=== PATIENT | male | born 1935 | race Caucasian/White ===

== ENCOUNTER 2018-12-29 15:52 | Outpatient (CLI) | payer MEDICARE, SELFPAY ==
--- NOTE | 2018-12-29 16:15 | DI.RAD_ITS ---
SYMPTOM/DIAGNOSIS: CHRONIC RT SHOULDER PAIN, M25.511, H/O FALL ONE MONTH AGO RIGHT SHOULDER: Six views were obtained. There is plate and screw fixation of the proximal humeral diaphysis. There are mild hypertrophic degenerative changes of the glenohumeral joint and acromioclavicular joint. No other significant bony or soft tissue abnormality is seen.
== END 2018-12-29 16:12 ==
PROVIDERS: Visit Provider Family Medicine
DX: M25.511 Pain in right shoulder (principal); M19.011 Primary osteoarthritis, right shoulder; Z91.81 History of falling
CPT/HCPCS: 73030

== ENCOUNTER → 2019-01-17 09:56 | Outpatient (BNVA) | payer MEDICARE, SELFPAY | PROVIDERS: Referring Provider Family Medicine; Visit Provider Student in an Organized Health Care Education/Training Program | DX: M75.81 Other shoulder lesions, right shoulder (principal) | CPT/HCPCS: 20610; 99203; 99213; J1040 ==

== ENCOUNTER → 2019-02-28 10:03 | Outpatient (BNVA) | payer MEDICARE, SELFPAY | PROVIDERS: Visit Provider Student in an Organized Health Care Education/Training Program | DX: M75.81 Other shoulder lesions, right shoulder (principal); Z98.890 Other specified postprocedural states | CPT/HCPCS: 99213 ==

== ENCOUNTER 2019-10-10 12:47 | Emergency (ER) | payer MEDICARE, SELFPAY ==
[2019-10-10 12:53] VITALS: BP 133/80; PULSE 74; RESP 16; TEMP 36.5; O2SAT 97
--- NOTE | 2019-10-10 13:00 | DI.RAD_ITS ---
EXAM: XR FOOT RT COMPLETE INDICATION: erythema, tenderness. COMPARISON: No exams were available for comparison TECHNIQUE: 2D digital imaging was performed. FINDINGS: No fracture or bony erosions are seen. There are degenerative changes of the 1st MTP joint. No fore ign body or soft tissue calcifications are seen. There is no abnormal soft tissue air. 

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
[2019-10-10] MEDS: Acetaminophen 500 MG TAB PO (13:54)
[2019-10-10] MEDS: Cephalexin 500 MG CAP PO (13:54)
== END 2019-10-10 14:00 | disposition home or self-care (01) ==
PROVIDERS: Emergency Provider Registered Nurse Emergency
DX: L03.115 Cellulitis of right lower limb (principal)
CPT/HCPCS: 99283; 73630

== ENCOUNTER 2020-07-21 10:39 | Emergency (ER) | payer MEDICARE, SELFPAY ==
[2020-07-21] VITALS (31 sets, daily range): BP systolic 120–152; BP diastolic 41–81; PULSE 52–73; RESP 9–23; TEMP 36.6; O2SAT 93–99
--- NOTE | 2020-07-21 10:45 | RT.EKG_ITS ---
APPROVED REPORT Exam: Resting ECG Patient Location: E HR:62 bpm ECG Measurements Heart Rate 62 AXIS IA 252 P 71 QRSd 172 QRS 38 QT 435 T 33 QTc 441 Conclusion Pacemaker spikes or artifacts...timing non-diagnostic Sinus rhythm...normal P axis, V-rate 60- 99 Prolonged IA interval...IA >220, V-rate 50- 90 Right bundle branch block...QRSd>120, terminal axis(90,270) I have reviewed and interpreted ECG and agree with software generated interpretation.
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
--- NOTE | 2020-07-21 11:15 | DI.CT_ITS ---
EXAM: CT CHEST PE CTA CLINICAL HISTORY: R sided back/scapula pain, r/o acute disease. TECHNIQUE: Imaging Protocol: Axial CT angiography was performed with multi-slice acquisition and mu lti-planar and/or 3D reconstructions. CONTRAST MATERIAL: Intravenous: Omnipaque 350 Contrast volume:100 ml COMPARISON: CR CHEST 2 VIEWS PA,LAT from 11/22/2015 FINDINGS: Pulmonary Arteries: No evidence of filling defect to suggest pulmonary emboli. Tracheobronchial tree: Patent where visualized. Mediastinum and Rizwana: No dominant adenopathy or fluid collection. Pulmonary parenchyma: No consolidation or dominant measurable mass. Expiratory changes. Two cysts or bulla at the right lung base.. Pleura: No effusion or pneumothorax. Heart: The heart is not dilated. coronary artery calcifications are seen. Aorta: Thoracic aorta non-dilated. Minimal atherosclerotic changes. Upper abdomen: Unremarkable. Bones: Stable midthoracic compression fracture and flowing osteophytes. No acute fracture. No rib f racture or scapular fracture. Soft tissues: Stable right thyroid nodules. IMPRESSION: No evidence of pulmonary embolism. No evidence of fracture. RADIATION DOSE DELIVERED: Total DLP DATA REPOSITORY: All CT scans at this facility are submitted to the National Radiology Data Registry (NRDR) Dose Index Registry (DIR) with the [employer] ([employer]). RADIATION OPTIMIZATION: All CT scans at this facility use at least one of these dose optimization te chniques: automated exposure control; mA and/or kV adjustment per patient size (includes targeted exa ms where dose is matched to clinical indication); or iterative reconstruction.
--- NOTE | 2020-07-21 11:15 | DI.CT_ITS ---
EXAM: CT HEAD CERVICAL SPINE WO CLINICAL HISTORY: possible head injury s/p syncope episode. TECHNIQUE: Imaging Protocol: Axial computed tomography images with coronal and sagittal reformatted images were created and reviewed COMPARISON: CT HEAD AND CSPINE W/O CONTRAST from 10/24/2017 FINDINGS: Head CT Ventricles and Extra axial spaces: Normal in size and morphology for the patient's age. Hemorrhage: None. Cerebral parenchyma: Mild atrophy, consistent with the patient's age.. . Midline shift: None. Brainstem/Cerebellum: Area of CSF attenuation in the upper left cerebellum may represent an old infar ct versus developmental asymmetry. This appears unchanged. No acute infarct is seen. Calvarium: Normal. Visualized Paranasal sinuses/Mastoids: Clear. Cervical Spine CT BONES: Vertebral body heights are maintained. Alignment is normal. There is no evidence of acute frac ture. Degenerative disc changes and facet degenerative changes are seen . SOFT TISSUES: No paraspinal hematoma. The airway appears intact. No pneumothorax is seen at the lung apices. right thyroid nodules are again noted. IMPRESSION: Head CT: No acute abnormality. C-spine CT: Degenerative changes, no acute abnormality. RADIATION DOSE DELIVERED: LINK-TO-SR Total DLP DATA REPOSITORY: All CT scans at this facility are submitted to the National Radiology Data Registry (NRDR) Dose Index Registry (DIR) with the [employer] (ACR). RADIATION OPTIMIZATION: All CT scans at this facility use at least one of these dose optimization te chniques: automated exposure control; mA and/or kV adjustment per patient size (includes targeted exa ms where dose is matched to clinical indication); or iterative reconstruction.
[2020-07-21 11:19] LABS: Abs Immature Grans 0.01 10^3/uL (0.0-0.06); Absolute Basophil Count 0.01 10^3/uL (0.0-0.2); Absolute Eosinophil Count 0.04 10^3/uL (0.0-0.7); Absolute Lymphocyte Count 1.35 10^3/uL (1.2-3.4); Absolute Monocyte Count 0.43 10^3/uL (0.1-0.8); Absolute Neutrophil Count 3.43 10^3/uL (1.2-6.7); Basophils % 0.2; Eosinophils % 0.8; HCT 45.9 % (40.0-50.0); HGB 15.8 g/dL (13.5-17.5); Immature Grans % 0.2; Lymphocytes % 25.6; MCH 32.9 pg (27.0-33.0); MCHC 34.4 % (32.0-36.0); MCV 95.6 fL (80-95); MPV 10.1 fL (8.0-11.0); Monocytes % 8.2; Nucleated RBC 0 %; Platelet Count 157 10^3/uL (130-400); RDW 11.8 % (11.8-14.1); RDW-SD 41.4 fL; WBC 5.27 10^3/uL (4.4-10.8)
--- NOTE | 2020-07-21 11:29 | DI.CT_ITS ---
EXAM: CT THORACIC SPINE RECONS CLINICAL HISTORY: s/p fall, r/o acute fracture. TECHNIQUE: Imaging Protocol: Axial computed tomography images with coronal and sagittal reformatted images were created and reviewed. CONTRAST MATERIAL: Noncontrast COMPARISON: CT THORACIC AND LUMBAR SPINE WO from 10/24/2017 FINDINGS: Bones: No acute fractures or subluxation a is seen. There has been no change in the old mild belinda isatu fracture T8. Accentuation of the thoracic kyphosis is again noted. The alignment of the spine is normal including the cervicothoracic junction. There are flowing osteophytes. There is no narrowi ng of the central canal. Soft tissues: The paraspinal soft tissues are unremarkable. No large disk herniations are identified . IMPRESSION: Stable mild T8 compression fracture. No acute abnormality. Degenerative changes. RADIATION DOSE DELIVERED: Total DLP DATA REPOSITORY: All CT scans at this facility are submitted to the National Radiology Data Registry (NRDR) Dose Index Registry (DIR) with the [employer] (ACR). RADIATION OPTIMIZATION: All CT scans at this facility use at least one of these dose optimization te chniques: automated exposure control; mA and/or kV adjustment per patient size (includes targeted exa ms where dose is matched to clinical indication); or iterative reconstruction.
[2020-07-21] MEDS: Normal Saline 500 ML IV (11:30)
[2020-07-21 11:32] LABS: PTT Activated 24.2 sec (21.0-27.5); Prothrombin Time 10.2 sec (9.3-11.0)
[2020-07-21 11:37] LABS: ALT 24 U/L (16-63); AST 21 U/L (15-37); Albumin 3.6 g/dL (3.4-5.0); Alkaline Phosphatase 69 U/L (46-116); Anion Gap 6.1 mmol/L (3-11); BUN 21 mg/dL (7-18); CO2 29.9 mmol/L (21.0-32.0); Calcium 8.6 mg/dL (8.5-10.1); Chloride 103 mmol/L (98-107); Glucose 97 mg/dL (74-106); Potassium 3.9 mmol/L (3.5-5.1); Sodium 139 mmol/L (136-145)
[2020-07-21 11:43] LABS: Troponin I < 0.05 ng/mL (<0.06)
[2020-07-21] MEDS: ACETAMINOPHEN 1,000 MG/100 ML BTL 400 MG IVPB (11:59)
[2020-07-21] MEDS: Lidocaine 5% Patch 1 PATCH TP (12:00)
[2020-07-21] MEDS: diazePAM 5 MG TAB PO (12:00)
== END 2020-07-21 14:53 | disposition home or self-care (01) ==
PROVIDERS: Emergency Provider Physician Assistant
DX: R42 Dizziness and giddiness (principal); S29.012A Strain of muscle and tendon of back wall of thorax, initial encounter; S46.811A Strain of other muscles, fascia and tendons at shoulder and upper arm level, right arm, initial encounter; W19.XXXA Unspecified fall, initial encounter
CPT/HCPCS: 36415; 71275; 80053; 93005; 96361; 96365; 99285; 70450; 72125; 83735; 84484; 85025; 85610; 85730; 93010; J0131

== ENCOUNTER 2020-07-25 11:59 | Emergency (ER) | payer MEDICARE, SELFPAY ==
[2020-07-25] VITALS (26 sets, daily range): BP systolic 118–142; BP diastolic 65–111; PULSE 53–75; RESP 7–18; TEMP 36.2; O2SAT 91–99
--- NOTE | 2020-07-25 12:00 | RT.EKG_ITS ---
APPROVED REPORT Exam: Resting ECG Patient Location: E HR:53 bpm ECG Measurements Heart Rate 53 AXIS WY 265 P 56 QRSd 165 QRS -41 QT 469 T 18 QTc 440 Conclusion Sinus bradycardia...rate< 60 Prolonged WY interval...WY >220, V-rate 50- 90 Right bundle branch block...QRSd>120, terminal axis(90,270) Inferior infarct, old...Q >35mS, II III aVF
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
[2020-07-25 12:48] LABS: Abs Immature Grans 0.02 10^3/uL (0.0-0.06); Absolute Basophil Count 0.02 10^3/uL (0.0-0.2); Absolute Eosinophil Count 0.03 10^3/uL (0.0-0.7); Absolute Lymphocyte Count 1.22 10^3/uL (1.2-3.4); Absolute Monocyte Count 0.45 10^3/uL (0.1-0.8); Basophils % 0.3; Eosinophils % 0.5; HGB 15.8 g/dL (13.5-17.5); Immature Grans % 0.3; Lymphocytes % 21.3; MCH 33.1 pg (27.0-33.0); MCHC 34.3 % (32.0-36.0); MCV 96.4 fL (80-95); MPV 10.3 fL (8.0-11.0); Monocytes % 7.8; Neutrophils % 69.8; Nucleated RBC 0 %; Platelet Count 170 10^3/uL (130-400); RBC 4.77 10^6/uL (4.36-5.78); RDW 11.7 % (11.8-14.1); RDW-SD 41.3 fL; WBC 5.74 10^3/uL (4.4-10.8)
[2020-07-25 12:55] LABS: Bilirubin Negative (Negative); Blood Negative (Negative); Clarity Clear (Clear); Glucose Negative (Negative); Ketones Negative (Negative); Leukocyte Esterase Negative (Negative); Nitrite Negative (Negative); Urobilinogen 0.2 EU/dL (Up TO 0.2)
[2020-07-25 13:03] LABS: ALT 30 U/L (16-63); AST 25 U/L (15-37); Albumin 3.8 g/dL (3.4-5.0); Alkaline Phosphatase 68 U/L (46-116); Anion Gap 6.9 mmol/L (3-11); BUN 19 mg/dL (7-18); Bilirubin, Total 1.5 mg/dL (0.2-1.0); CO2 27.1 mmol/L (21.0-32.0); CREATININE 1.23 mg/dL (0.70-1.30); Calcium 8.8 mg/dL (8.5-10.1); Chloride 103 mmol/L (98-107); Estimated GFR 56.06 (mL/min/1.73m2); Glucose 104 mg/dL (74-106); Magnesium 2.2 mg/dL (1.8-2.4); Potassium 3.8 mmol/L (3.5-5.1); Sodium 137 mmol/L (136-145); Total Protein 7.1 g/dL (6.4-8.2); Troponin I < 0.05 ng/mL (<0.06)
--- NOTE | 2020-07-25 14:00 | DI.CT_ITS ---
EXAM: CT BRAIN NECK CTA CLINICAL HISTORY: Dizziness, Headache, Near Syncope. TECHNIQUE: Imaging Protocol: Axial CT angiography was performed with multi-slice acquisition and mu lti-planar and/or 3D reconstructions. CONTRAST MATERIAL: Intravenous: Omnipaque 350 Contrast volume:structured data in ml COMPARISON: CT THORACIC AND LUMBAR SPINE WO from 10/24/2017 CT HEAD AND CSPINE W/O CONTRAST from 10/24/[address] THORACIC SPINE RECONS from 07/21/2020 FINDINGS: CT angiography of the cervical cranial region was performed according to the usual protocol with intr avenous infusion of 85 cc of Omnipaque 350.. Initial noncontrast scanning of the head shows moderate to severe generalized cerebral atrophy. Ther e is an old left cerebellar infarction. There is no evidence of acute intracranial hemorrhage, mass effect, or midline shift.. Visualized lung apices are clear. Visualized portions of thoracic aorta and pulmonary arterial circul ation are unremarkable. There is no evidence of a cervical mass or adenopathy. The tracheal laryngeal structures appear intact. The common, internal, and external carotid arteries are within normal limits in the cervical region w ith no evidence of aneurysm, stenosis, or dissection. The vertebral arteries are unremarkable in appearance in the cervical region with no evidence of aneu rysm, stenosis, or dissection. Intracranial portions of the internal carotid arteries appear normal with no evidence of aneurysm, st enosis, or dissection. Intracranial vertebral arteries and basilar artery appear normal with no evidence of aneurysm, stenos is or dissection. No aneurysm identified in the region of the [id number]. The anterior, middle, and posterior cer ebral arteries and major branches appear intact with no evidence of aneurysm, stenosis, or dissection . The right posterior cerebral artery is supplied mainly across the posterior communicating artery. No enhancing brain lesion identified. 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 No significant cranio cerebral vascular lesion. 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 RADIATION DOSE DELIVERED: 1,119.14mGy.cmTotal DLP 1,119.14mGy.cm Total DLP DATA REPOSITORY: All CT scans at this facility are submitted to the National Radiology Data Registry (NRDR) Dose Index Registry (DIR) with the [employer] (ACR). RADIATION OPTIMIZATION: All CT scans at this facility use at least one of these dose optimization te chniques: automated exposure control; mA and/or kV adjustment per patient size (includes targeted exa ms where dose is matched to clinical indication); or iterative reconstruction.
[2020-07-25] MEDS: Normal Saline - Diluent 50 ML VIAL IV (14:03)
[2020-07-25] MEDS: Omnipaque 350 MG/ML 100 ML BTL 85 ML IJ (14:04)
[2020-07-25 14:34] LABS: TSH (W/Ref FT4) 1.29 uIU/mL (0.36-3.74)
== END 2020-07-25 15:13 | disposition home or self-care (01) ==
PROVIDERS: Emergency Provider Registered Nurse Emergency
DX: R42 Dizziness and giddiness (principal); R51.9 Headache, unspecified; M54.2 Cervicalgia; G89.29 Other chronic pain
CPT/HCPCS: 36415; 70496; 70498; 80053; 93005; 99285; 81003; 83735; 84443; 84484; 85025; 93010; 99284; J3490

== ENCOUNTER 2020-07-26 22:56 | Emergency (ER) | payer MEDICARE, SELFPAY ==
--- NOTE | 2020-07-26 22:45 | RT.EKG_ITS ---
APPROVED REPORT Exam: Resting ECG Patient Location: E HR:53 bpm ECG Measurements Heart Rate 53 AXIS OR 236 P -49 QRSd 169 QRS -1 QT 448 T 23 QTc 422 Conclusion Sinus or ectopic atrial bradycardia...P axis (-45,135), rate< 60 Prolonged OR interval...OR >220, V-rate 50- 90 Right bundle branch block...QRSd>120, terminal axis(90,270) There are no significant changes compared to prior EKG performed on 07/25/2020 at 12:18.
[2020-07-26 22:59] VITALS: BP 145/86; PULSE 59; RESP 18; TEMP 36.8; O2SAT 98
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
[2020-07-26 23:31] VITALS: RESP 16
[2020-07-26 23:32] LABS: Abs Immature Grans 0.03 10^3/uL (0.0-0.06); Absolute Basophil Count 0.01 10^3/uL (0.0-0.2); Absolute Eosinophil Count 0.04 10^3/uL (0.0-0.7); Absolute Monocyte Count 0.48 10^3/uL (0.1-0.8); Absolute Neutrophil Count 3.75 10^3/uL (1.2-6.7); Basophils % 0.2; Eosinophils % 0.7; HCT 44.8 % (40.0-50.0); HGB 15.4 g/dL (13.5-17.5); Immature Grans % 0.5; Lymphocytes % 25.8; MCH 33.1 pg (27.0-33.0); MCHC 34.4 % (32.0-36.0); MCV 96.3 fL (80-95); MPV 10.1 fL (8.0-11.0); Monocytes % 8.3; Neutrophils % 64.5; Nucleated RBC 0 %; Platelet Count 160 10^3/uL (130-400); RBC 4.65 10^6/uL (4.36-5.78); RDW 11.7 % (11.8-14.1); RDW-SD 41.1 fL; WBC 5.81 10^3/uL (4.4-10.8)
[2020-07-26 23:46] LABS: Bilirubin Negative (Negative); Blood Negative (Negative); Clarity Clear (Clear); Glucose Negative (Negative); Ketones Negative (Negative); Leukocyte Esterase Negative (Negative); Nitrite Negative (Negative); Specific Gravity >= 1.030 (1.005-1.025); Urobilinogen 0.2 EU/dL (Up TO 0.2)
[2020-07-26 23:49] LABS: ALT 29 U/L (16-63); AST 23 U/L (15-37); Albumin 3.7 g/dL (3.4-5.0); Alkaline Phosphatase 67 U/L (46-116); BUN 20 mg/dL (7-18); Bilirubin, Total 1.2 mg/dL (0.2-1.0); CREATININE 1.28 mg/dL (0.70-1.30); Calcium 8.7 mg/dL (8.5-10.1); Chloride 105 mmol/L (98-107); Estimated GFR 53.54 (mL/min/1.73m2); Glucose 112 mg/dL (74-106); Magnesium 2.2 mg/dL (1.8-2.4); Potassium 3.7 mmol/L (3.5-5.1); Sodium 140 mmol/L (136-145); Total Protein 6.8 g/dL (6.4-8.2)
[2020-07-26 23:51] LABS: Troponin I < 0.05 ng/mL (<0.06)
--- NOTE | 2020-07-27 01:03 | NUR.NOTE ---
Pt brought in my EMS tonight with vague symptoms. Chief complaint when asked was I am just not sleeping. Upon exam pt frequently asking for staff to take of zio-pack monitor. Pt again asked for monitor to be removed at time of discharge. Per provider monitor removed and recommended for [facility]. Will update spouse upon arrival.
[2020-07-27 02:19] VITALS: BP 145/86; PULSE 59; RESP 16; TEMP 36.8; O2SAT 98
== END 2020-07-27 02:15 | disposition home or self-care (01) ==
PROVIDERS: Emergency Provider Registered Nurse Emergency
DX: R68.83 Chills (without fever) (principal)
CPT/HCPCS: 36415; 80053; 87040; 93005; 99284; 81003; 83735; 84484; 85025; 93010

== ENCOUNTER 2020-07-29 02:07 | Outpatient (CLI) | payer MEDICARE, SELFPAY ==
[2020-07-31 17:01] LABS: Patient Race White; SARS-CoV-2 RNA Undetected (Undetected); SARS-CoV-2 Specimen Source Nasal
== END 2020-07-29 02:27 ==
PROVIDERS: Visit Provider Family Medicine
DX: Z11.59 Encounter for screening for other viral diseases (principal)
CPT/HCPCS: U0003

== ENCOUNTER → 2020-08-04 12:17 | Outpatient (BNVA) | payer MEDICARE, SELFPAY ==
--- NOTE | 2020-08-05 13:43 | W.ZIOMONITOR ---
Date of service: 08/05/20 Time of Service: 13:43 14 Day Local Truck Driver Referring Provider:: watson Indications:: dizziness Note: There is a 14-day monitor ordered for indication of dizziness. ?The patient was in normal sinus rhythm for the majority of the recording with an average heart rate of 66 bpm (minimum 47 bpm) ?Patient had occasional (3.2%) PVCs and rare PACs. ?There was one episode of ventricular tachycardia which lasted a total of 5 beats. ?There was one episode of supraventricular tachycardia lasting 3 beats. ?There are no episodes of atrial fibrillation, no pauses greater than 3 seconds and no evidence of high degree heart block.
== END ==
PROVIDERS: PCP Family Medicine; Referring Provider Student in an Organized Health Care Education/Training Program; Visit Provider Psychiatry & Neurology Neurology
DX: F41.9 Anxiety disorder, unspecified (principal); G47.9 Sleep disorder, unspecified; R55 Syncope and collapse; S29.012A Strain of muscle and tendon of back wall of thorax, initial encounter; W19.XXXA Unspecified fall, initial encounter
CPT/HCPCS: 99215

== ENCOUNTER 2020-08-05 13:43 | Outpatient (CLI) | payer MEDICARE, SELFPAY | END 2020-08-05 14:03 | PROVIDERS: PCP Family Medicine; Referring Provider Physician Assistant; Visit Provider Internal Medicine Cardiovascular Disease | DX: R42 Dizziness and giddiness (principal); I49.3 Ventricular premature depolarization; I47.1 Supraventricular tachycardia; I47.2 Ventricular tachycardia | CPT/HCPCS: 0298T ==

== ENCOUNTER 2020-08-20 00:53 | Outpatient (CLI) | payer MEDICARE, SELFPAY ==
--- OUTSIDE RECORDS SUMMARY | 2020-08-20 00:57 | XMS_ITS | Encounter Summary ---
:1935 Author Organization Department [facility] Address [address] [place] [address] Care Team Providers Name Role Phone CINTHIA GRAHAM Primary Care Provider Unavailable CINTHIA GRAHAM Primary Care Provider Unavailable Insurance Providers: All historical and current Section Date Range: From patient's date of to the date document was created.This section includes the names of all active insurance providers for the patient. Insurance Type of Plan Start of End of Group Member Insurance Policy P atient's Provider Coverage Name Policy Policy Number ID Provider's Amaro's Relationship Coverage Coverage Telephone Name to Policy Number Amaro AARP MEDIGAP PLANC Oct 27, PLANC [id number] YUKI GREGORY PATIENT PLAN C 2000 221 9 ERT MEDICARE MEDICARE PART Oct 27, PART A [id number] [phone] YUKI GREGORY PATIENT (WNR) (M) A 2000 [id number] 1 ERT MEDICARE MEDICARE PART Oct 27, PART B [id number] [phone] YUKI GREGORY PATIENT (WNR) (M) B 2000 [id number] 1 ERT Selected Encounter This section includes the information on record at [place] for the Encounter. Date/Time Encounter Type Encounter Description Reason Provider Source Jul 25, 2020 10:15 Outpatient Encounter TELEPHONE TRIAGE AM IHE Encounter Template Text not used by VA Plan of Treatment: Future Appointments (+ 6 months) and Future Tests (+/- 45 days) The Plan of Treatment section includes future care activities for the patient from all VA treatment facilities. This section includes future appointments and future orders which are active, pending or scheduled.Future Appointments This section includes appointments that were scheduled to occur 6 months from the date of the Encounter, up to a maximum of 20 appointments. The data comes from all [place] [facility] Appointment Date/Time Appointment Type Appointment Facili ty Name Sep 30, 2020 02:00 PM AMBULATORY - MEDICINE ROSALBA TIRADO T [facility] Advance Directives: All historical and current Section Date Range: From patient's date of to the date document was created. This section includes ALL of a patient's completed or amended VA Advance and Rescinded Directives. The entries below indicate that a directive exists for the patient, but an actual copy is not included with this document. The data comes from all [place] facilities. Date Advance Directives Provider Source Jul 31, 2020 ADVANCE DIRECTIVE NATHANIEL SPARKS [facility] Oct 16, 2003 ADVANCE DIRECTIVE JESUS CROWLEY [facility] Encounter Notes: All associated encounter notes This section contains the clinical notes associated to the Encounter. Date/Time Encounter Note(s) Provider Source Jul 25, 2020 10:15 AM PRIMARY CARE ADMINISTRATIVE NOTE: ESTELLA CAMARGO [facility] LOCAL TITLE: Administrative Note/Primary Care STANDARD TITLE: PRIMARY CARE ADMINISTRATIVE NOTE DATE OF NOTE: JUL 25, 2020@10:15 ENTRY DATE: JUL 25, 2020@10:15:45 AUTHOR: ESTELLA CAMARGO EXP COSIGNER: URGENCY: STATUS: COMPLETED Administrative Note/Primary Care Has ADDE NDA Patient went to [facility] Emergen cy Room TuesdayJul 21. Patienet requests to speak to a nurse now as he is lightheaded. /domonique/ ESTELLA CAMARGO MSA Signed: 07/25/2020 10:18 Receipt Acknowledged By: * AWAITING SIGNATURE * KAREN JOVEL 07/25/2020 11:20 /es/ CARMEN ROSARIO RN 07/25/2020 11:20 /domonique/ CARMEN ROSARIO RN for ANGELITA WHITLEY * AWAITING SIGNATURE * TERESSA HALLMAN 07/25/2020 ADDENDUM STATUS: COMPLETED spoke to vet- states he cannot change position without extreme dizziness Sounds SOB- breaths between words States blandon monitor on has been drinking fluids- keeping hydrated states last BP was 160/85- does not have monitor in home cannot measure HR -concern with report of unst amanda gait, lightheadedness,dizziness, feeling faint not feeling myself come/go confer with provider- suggested ER visit will present to [facility] /domonique/ CARMEN ROSARIO RN Signed: 07/25/2020 11:18
--- OUTSIDE RECORDS SUMMARY | 2020-08-20 00:57 | XMS_ITS | Encounter Summary ---
:[address] [facility] Address [address] [place] [address] Care Team Providers Name Role Phone CINTHIA [...] Amaro AARP MEDIGAP PLANC Oct 27, PLANC [id number] YUKI GREGORY PATIENT PLAN C 2000 221 9 ERT MEDICARE MEDICARE PART Oct 27, PART A [id number] [id number] YUKI GREGORY PATIENT (WNR) (M) A 2000 UA10 1 ERT MEDICARE MEDICARE PART Oct 27, PART B [id number] [id number] YUKI GREGORY PATIENT (WNR) (M) B 2000 [id number] 1 ERT Selected Encounter This section includes the information on record at [place] for the Encounter. Date/Time Encounter Type Encounter Description Reason Provider Source Jul 28, 2020 11:14 Outpatient Encounter PRIMARY CARE/MEDICINE AM IHE Encounter Template Text not used by VA Plan of Treatment: Future Appointments (+ 6 months) and Future Tests (+/- 45 days) The Plan of Treatment section includes future care activities for the patient from all [place] treatment facilities. This section includes future appointments and future orders which are active, pending or scheduled.Future Appointments This section includes appointments that were scheduled to occur 6 months from the date of the Encounter, up to a maximum of 20 appointments. The data comes from all [place] [facility] Appointment Date/Time Appointment Type Appointment Facili ty Name Sep 30, 2020 02:00 PM AMBULATORY - MEDICINE ROSALBA TIRADO [facility] Advance Directives: All historical and current Section Date Range: From patient's date of to the date document was created. This section includes ALL of a patient's completed or amended VA Advance and Rescinded Directives. The entries below indicate that a directive exists for the patient, but an actual copy is not included with this document. The data comes from all [place] facilities. Date Advance Directives Provider Source Jul 31, 2020 ADVANCE DIRECTIVE NATHANIEL SPARKS [facility]IRAD[facility] Oct 16, 2003 ADVANCE DIRECTIVE JESUS CROWLEY [facility] Encounter Notes: All associated encounter notes This section contains the clinical notes associated to the Encounter. Date/Time Encounter Note(s) Provider Source Jul 28, 2020 11:14 AM NONVA NOTE: ERLIN CORCORAN [facility] LOCAL TITLE: NonVA Note STANDARD TITLE: NONVA NOTE DATE OF NOTE: JUL 28, 2020@11:14 ENTRY DATE: JUL 28, 2020@11:14:58 AUTHOR: ERLIN CORCORAN EXP COSIGNER: URGENCY: STATUS: COMPLETED Event/Procedure:ED Visit Not e for dizziness, strain of thoracic back region and trapezius muscle strain from [facility]. Date of Service:07/21/2020 Treating Provider:Honey Henson DO Documents sent to [facility] to be scanned. To view this document, open the cprs tools menu and then open the image display viewer. /domonique/ ERLIN CORCORAN Health Tufter Operator Signed: 07/28/2020 11:16
--- OUTSIDE RECORDS SUMMARY | 2020-08-20 00:57 | XMS_ITS | Encounter Summary ---
:[address] [facility] Address [address] [place] [address] Care Team Providers Name Role Phone CINTHIA [...] Amaro AARP MEDIGAP PLANC Oct 27, PLANC [id number] [phone] YUKI GREGORY PATIENT PLAN C 2000 221 9 ERT MEDICARE MEDICARE PART Oct 27, PART A [id number] [phone] YUKI GREGORY PATIENT (WNR) (M) A 2000 UA10 1 ERT MEDICARE MEDICARE PART Oct 27, PART B [id number] [id number] YUKI GREGORY PATIENT (WNR) (M) B 2000 UA10 1 ERT Selected Encounter This section includes the information on record at [place] for the Encounter. Date/Time Encounter Type Encounter Description Reason Provider Source Jul 21, 2020 04:37 Outpatient Encounter COMMUNITY CARE PM CONSULT IHE Encounter Template Text not used by [...] 20 appointments. The data comes from all [place] treatmentfacilities. Appointment Date/Time Appointment Type Appointment Facili ty Name Sep 30, 2020 02:00 PM AMBULATORY - MEDICINE ROSALBA TIRADO T [facility] Advance Directives: All historical and current Section Date Range: From patient's date of to the date document was created. This section includes ALL of a patient's completed or amended VA Advance and Rescinded Directives. The entries below indicate that a directive exists for the patient, but an actual copy is not included with this document. The data comes from all [place] facilities. Date Advance Directives Provider Source Jul 31, 2020 ADVANCE DIRECTIVE NATHANIEL SPARKS [place] [facility] Oct 16, 2003 ADVANCE DIRECTIVE JESUS CROWLEY [facility] Encounter Notes: All associated encounter notes This section contains the clinical notes associated to the Encounter. Date/Time Encounter Note(s) Provider Source Jul 21, 2020 04:37 PM NONVA NOTE: MAMTA FUNG LOCAL TITLE: COMMUNITY CARE COORDINATION PLAN [facility] STANDARD TITLE: NONVA NOTE DATE OF NOTE: JUL 21, 2020@16:37 ENTRY DATE: JUL 28, 2020@16:37:35 AUTHOR: MAMTA FUNG EXP COSIGNER: URGENCY: STATUS: COMPLETED [place] self-presented to [facility] Emergency Notification Intake Date [facility]ing [facility] the [facility] Hospital Name: Hospital: [facility] Address: [address] [place] [address] City: [place] State: [place] Zip Code: [address] Chief complaint: SHORT OF BREATH DIZZY/LIGHT HEA DED/FAINT Primary Diagnosis: Patient Admitted? Unknown Community Facility Point of Contact: Name: none listed Phone: Notification ID # [id number] Per notification, there was no 72 hour notificat ion. The bills need to be submitted to the [facility] for cons ideration under [facility] 1728- Unauthorized EOC or [facility] 1725- Mill Bill Regulation. Records received and sent for scanning, see note dated 07/28/20 /domonique/ Mamta Fung Advanced MSA Signed: 07/28/2020 16:41 Receipt Acknowledged By: * AWAITING SIGNATURE * MARY RODRÍGUEZ
--- OUTSIDE RECORDS SUMMARY | 2020-08-20 00:57 | XMS_ITS | Encounter Summary ---
:[address] [facility] Address [address] [place] [address] Care Team Providers Name Role Phone CINTHIA [...] Amaro AARP MEDIGAP PLANC Oct 27, PLANC [id number] YUKI GREGORY PATIENT PLAN C 2000 221 9 ERT MEDICARE MEDICARE PART Oct 27, PART A [id number] [phone] YUKI GREGORY PATIENT (WNR) (M) A 2000 UA10 1 ERT MEDICARE MEDICARE PART Oct 27, PART B [id number] [id number] YUIK GREGORY PATIENT (WNR) (M) B 2000 UA10 1 ERT Selected Encounter This section includes the information on record at [place] for the Encounter. Date/Time Encounter Type Encounter Description Reason Provider Source Jul 22, 2020 08:05 Outpatient Encounter ADMIN INESSA GARCIA AM (MASGERMANCT) RYAN Encounter Template Text not used by VA [...] 20 appointments. The data comes from all [place] [facility]. Appointment Date/Time Appointment Type Appointment Facili ty Name Sep 30, 2020 02:00 PM AMBULATORY - MEDICINE ROASLBA BOBBY [facility] Advance Directives: All historical and current Section Date Range: From patient's date of to the date document was created. This section includes ALL of a patient's completed or amended VA Advance and Rescinded Directives. The entries below indicate that a directive exists for the patient, but an actual copy is not included with this document. The data comes from all [place] facilities. Date Advance Directives Provider Source Jul 31, 2020 ADVANCE DIRECTIVE NATHANIEL SPARKS [facility] Oct 16, 2003 ADVANCE DIRECTIVE JESUS CROWLEY [facility] Encounter Notes: All associated encounter notes This section contains the clinical notes associated to the Encounter. Date/Time Encounter Note(s) Provider Source Jul 21, 2020 08:05 AM NONVA NOTE: NATHANIEL SPARKS LOCAL TITLE: NonVA Medical Records [facility] STANDARD TITLE: NONVA NOTE DATE OF NOTE: JUL 21, 2020@08:05 ENTRY DATE: JUL 22, 2020@08:05:14 AUTHOR: NATHANIEL SPARKS EXP COSIGNER: URGENCY: STATUS: COMPLETED NON VA DATE OF SERVICE:07/21/20 RESTING ECG [facility] // NATHANIEL SPARKS Signed: 07/22/2020 08:07 Receipt Acknowledged By: * AWAITING SIGNATURE * CINTHIA GRAHAM
--- OUTSIDE RECORDS SUMMARY | 2020-08-20 00:57 | XMS_ITS | Encounter Summary ---
:[address] [facility] Address [address] [place] [address] Care Team Providers Name Role Phone CINTHIA [...] Amaro AARP MEDIGAP PLANC Oct 27, PLANC [id number] YUKI GREGORY PATIENT PLAN C 2000 221 9 ERT MEDICARE MEDICARE PART Oct 27, PART A [id number] YUKI GREGORY PATIENT (WNR) (M) A 2000 UA10 1 ERT MEDICARE MEDICARE PART Oct 27, PART B [id number] [id number] YUKI GREGORY PATIENT (WNR) (M) B 2000 UA10 1 ERT Selected Encounter This section includes the information on record at [place] for the Encounter. Date/Time Encounter Type Encounter Description Reason Provider Source Jul 31, 2020 12:45 Outpatient Encounter ADMIN PAT ACTIVTIES PM (MASNONCT) IHE Encounter Template Text not used by [...] 20 appointments. The data comes from all [place] [facility] Appointment Date/Time Appointment Type Appointment Facili ty Name Sep 30, 2020 02:00 PM AMBULATORY - MEDICINE [facility] Advance Directives: All historical and current Section Date Range: From patient's date of to the date document was created. This section includes ALL of a patient's completed or amended VA Advance and Rescinded Directives. The entries below indicate that a directive exists for the patient, but an actual copy is not included with this document. The data comes from all [place] facilities. Date Advance Directives Provider Source Jul 31, 2020 ADVANCE DIRECTIVE NATHANIEL SPARKS [facility] Oct 16, 2003 ADVANCE DIRECTIVE JESUS CROWLEY [facility] Encounter Notes: All associated encounter notes This section contains the clinical notes associated to the Encounter. Date/Time Encounter Note(s) Provider Source Jul 31, 2020 12:45 PM ADVANCE DIRECTIVE: NATHANIEL SPARKS [facility] LOCAL TITLE: ADVANCE DIRECTIVE STANDARD TITLE: ADVANCE DIRECTIVE DATE OF NOTE: JUL 31, 2020@12:45 ENTRY DATE: JUL 31, 2020@12:45:22 AUTHOR: NATHANIEL SPARKS EXP COSIGNER: URGENCY: STATUS: COMPLETED Date of Advance Directive: 07/11/20 Document is a NON VA ADVANCE DIRECTIVE: Living W ill and durable power of commercial litigation attorney for health care. It is a scanned docum ent. A copy of the original (signed) advance directive is available in the patient's chart. To view this document online, click the [employer] [facility] Tools menu and choose Imaging Display (Viewer). /domonique/ NATHANIEL SPARKS Signed: 07/31/2020 12:46
--- OUTSIDE RECORDS SUMMARY | 2020-08-20 00:58 | XMS_ITS | Encounter Summary ---
:[address] [facility] Address [address] [place] [address] Care Team Providers Name Role Phone CINTHIA [...] Amaro AARP MEDIGAP PLANC Oct 27, PLANC [id number] YUKI GREGORY PATIENT PLAN C 2000 221 9 ERT MEDICARE MEDICARE PART Oct 27, PART A [id number] [id number] YUKI GREGORY PATIENT (WNR) (M) A 2000 UA10 1 ERT MEDICARE MEDICARE PART Oct 27, PART B [id number] [phone] YUKI GREGORY PATIENT (WNR) (M) B 2000 [id number] 1 ERT Selected Encounter This section includes the information on record at [place] for the Encounter. Date/Time Encounter Type Encounter Description Reason Provider Source May 21, 2020 09:56 Outpatient Encounter PRIMARY CARE/MEDICINE AM IHE Encounter Template Text not used by VA Plan of Treatment: Future Appointments (+ 6 months) and Future Tests (+/- 45 days) The Plan of Treatment section includes future care activities for the patient from all [place] treatment facilities. This section includes future appointments and future orders which are active, pending or scheduled.Future Appointments This section includes appointments that were scheduled to occur 6 months from the date of the Encounter, up to a maximum of 20 appointments. The data comes from all [place] [facility] Appointment Date/Time Appointment Type Appointment Facili ty Name Sep 30, 2020 02:00 PM AMBULATORY - MEDICINE ROSALBA TIRADO [facility] Advance Directives: All historical and current Section Date Range: From patient's date of to the date document was created. This section includes ALL of a patient's completed or amended VA Advance and Rescinded Directives. The entries below indicate that a directive exists for the patient, but an actual copy is not included with this document. The data comes from all [place] facilities. Date Advance Directives Provider Source Jul 31, 2020 ADVANCE DIRECTIVE NATHANIEL SPARKS [facility] Oct 16, 2003 ADVANCE DIRECTIVE CARLINEJESUS ROSALBA [facility] Encounter Notes: All associated encounter notes This section contains the clinical notes associated to the Encounter. Date/Time Encounter Note(s) Provider Source May 21, 2020 09:56 AM IMMUNIZATION NOTE: CARMEN ROSARIO [facility] LOCAL TITLE: Flu Shot Note STANDARD TITLE: IMMUNIZATION NOTE DATE OF NOTE: MAY 21, 2020@09:56 ENTRY DATE: MAY 21, 2020@09:56:41 AUTHOR: CARMEN ROSARIO EXP COSIGNER: URGENCY: STATUS: COMPLETED The patient has received the seasonal influenz a vaccine for the current season at another location. Date: May 20, 2020 Location: [facility] /domonique/ CARMEN ROSARIO RN Signed: 05/21/2020 09:57
--- OUTSIDE RECORDS SUMMARY | 2020-08-20 00:58 | XMS_ITS | Encounter Summary ---
:1935 Author Organization Department [facility] Address [address] [place] [address] Care Team Providers Name Role Phone CINTHIA [...] Amaro AARP MEDIGAP PLANC Oct 27, PLANC [id number] [phone] YUKI GREGORY PATIENT PLAN C 2000 221 9 ERT MEDICARE MEDICARE PART Oct 27, PART A [id number] [phone] YUKI GREGORY PATIENT (WNR) (M) A 2000 UA10 1 ERT MEDICARE MEDICARE PART Oct 27, PART B [id number] [id number] YUKI GREGORY PATIENT (WNR) (M) B 2000 UA10 1 ERT Selected Encounter This section includes the information on record at [place] for the Encounter. Date/Time Encounter Type Encounter Description Reason Provider Source May 20, 2020 12:00 Outpatient Encounter EVENT (HISTORICAL) AM IHE Encounter Template Text not used [...] 20 appointments. The data comes from all [place] [facility] Appointment Date/Time Appointment Type Appointment Facili ty Name Sep 30, 2020 02:00 PM AMBULATORY - MEDICINE ROSALBA BOBBY [facility] Immunizations: All administered on the encounter date This section contains immunizations associated to the Encounter. Immunization Series Date Issued Reaction Comments INFLUENZA, UNSPECIFIED FORMULATION May 20, 2020 Advance Directives: All historical and current Section Date Range: From patient's date of to the date document was created. This section includes ALL of a patient's completed or amended [place] Advance and Rescinded Directives. The entries below indicate that a directive exists for the patient, but an actual copy is not included with this document. The data comes from all [place] facilities. Date Advance Directives Provider Source Jul 31, 2020 ADVANCE DIRECTIVE NATHANIEL SPARKS [facility] Oct 16, 2003 ADVANCE DIRECTIVE JESUS CROWLEY [facility]
--- OUTSIDE RECORDS SUMMARY | 2020-08-20 00:58 | XMS_ITS ---
:1935 Author Organization Department [facility] Address [address] [place] [address] Care Team Providers Name Role Phone CINTHIA [...] Amaro AARP MEDIGAP PLANC Oct 27, PLANC [id number] YUKI GREGORY PATIENT PLAN C 2000 221 9 ERT MEDICARE MEDICARE PART Oct 27, PART A [id number] [phone] YUKI GREGORY PATIENT (WNR) (M) A 2000 UA10 1 ERT MEDICARE MEDICARE PART Oct 27, PART B [id number] [id number] YUKI GREGORY PATIENT (WNR) (M) B 2000 [id number] 1 ERT Selected Encounter This section includes the information on record at [place] for the Encounter. Date/Time Encounter Type Encounter Description Reason Provider Source May 21, 2020 09:29 Outpatient Encounter TELEPHONE TRIAGE AM IHE Encounter [...] 20 appointments. The data comes from all [place] [facility]. Appointment Date/Time Appointment Type Appointment Facili ty Name Sep 30, 2020 02:00 PM AMBULATORY - MEDICINE ROSALBA CELESTINO [facility] Advance Directives: All historical and current Section Date Range: From patient's date of to the date document was created. This section includes ALL of a patient's completed or amended VA Advance and Rescinded Directives. The entries below indicate that a directive exists for the patient, but an actual copy is not included with this document. The data comes from all [place] facilities. Date Advance Directives Provider Source Jul 31, 2020 ADVANCE DIRECTIVE NATHANIEL SPARKS ROSALBA TIRADO [facility] Oct 16, 2003 ADVANCE DIRECTIVE JESUS CROWLEY ROSALBA [facility] Encounter Notes: All associated encounter notes This section contains the clinical notes associated to the Encounter. Date/Time Encounter Note(s) Provider Source May 21, 2020 09:29 AM TELEPHONE ENCOUNTER NOTE: ANGELITA BARRON [facility] STANDARD TITLE: TELEPHONE ENCOUNTER NOTE DATE OF NOTE: MAY 21, 2020@09:29:29 ENTRY DATE: MAY 21, 2020@09:48:42 AUTHOR: ANGELITA BARRON EXP COSIGNER: URGENCY: STATUS: COMPLETED Type of call: CLINICAL INFORMATION / ADMIN. Caller Response: SENT TO PACT SPOUSE called in for ASAD GREGORY ([phone]) . Comments: [facility] called to report that the had a flu shot. This was given at [facility] in [place], [place] o n 05/20/20. Evaluation/Management Code: HC PRO PHONE CALL 11 -20 MIN ([id number]). Starting at: 05/21/2020 @ 9:29:29 AM Ending at: 05/21/2020 @ 9:47:37 AM Length: 18 minutes. Author: ANGELITA BARRON Caller Area: [facility] Chief Complaint: Not applicable to call. Class Code: Other specified counseling. Contact Patient's Email Address: /domonique/ ANGELITA BARRON Product Safety Test Engineer Signed: 05/21/2020 09:48 Receipt Acknowledged By: 05/21/2020 17:11 /domonique/ CINTHIA GRAHAM Physician 05/21/2020 10:10 /domonique/ CARMEN ROSARIO RN
--- OUTSIDE RECORDS SUMMARY | 2020-08-20 00:58 | XMS_ITS | Encounter Summary ---
:1935 Author Organization Department [facility] Address [address] [place] [address] Care Team Providers Name Role Phone CINTHIA [...] Amaro AARP MEDIGAP PLANC Oct 27, PLANC [phone] YUKI MARTINEZ PATIENT PLAN C 2000 221 9 ERT MEDICARE MEDICARE PART Oct 27, PART A [id number] [phone] YUKI MARTINEZ PATIENT (WNR) (M) A 2000 UA10 1 ERT MEDICARE MEDICARE PART Oct 27, PART B [id number] [phone] YUKI MARTINEZ PATIENT (WNR) (M) B 2000 UA10 1 ERT Selected Encounter This section includes the information on record at [place] for the Encounter. Date/Time Encounter Type Encounter Reason Provider Source Description Apr 08, 2020 OFFICE OTOLARYNGOLOGY/EN ICD-10-CM MAURA HURTADO 01:30 PM CONSULTATION T E04.1 Nontoxic single thyroid nodule with Provider Comments: Nontoxic single Thyroid Nodule IHE Encounter Template Text not used by [facility] Assessments - Encounter Diagnoses This section includes the primary and secondary diagnoses documented forthe Encounter. Date/Time Primary/Secondary Diagnosis Name Provider Source Diagnosis Apr 08, 2020 PRIMARY Nontoxic single SAMIA JOSEPH CELESTINO 03:48 PM thyroid nodule [facility] Apr 08, 2020 SECONDARY Dysphagia, oral JAKE,SAMIA M ROSALBA TIRADO 03:48 PM phase [facility] Plan of Treatment: Future Appointments (+ 6 months) and Future Tests (+/- 45 days) The Plan of Treatment section includes future care activities for the patient from all [place] treatment facilities. This section includes future appointments and future orders which are active, pending or scheduled.Future Appointments This section includes appointments that were scheduled to occur 6 months from the date of the Encounter, up to a maximum of 20 appointments. The data comes from all [facility]. Appointment Date/Time Appointment Type Appointment Facili ty Name Sep 30, 2020 02:00 PM AMBULATORY - MEDICINE [facility] Lab Results: +/- 30 days of the encounter This section includes the Chemistry and Hematology Lab Results on record with [place] for the patient. Radiology Reports and Pathology Reports are provided separately, in subsequent sections.Lab Results This section contains the Chemistry/Hematology Results that were resulted 30 days before or 30 days after the date of the Encounter. Date/Time Source Result Type Result - Unit Interpretation Reference Range Comment Mar 28, 2020 11:26 AM [facility] CBC PROFILE Spe cimen Type: BLOOD No comment enter ed. Ordering Provide r: CINTHIA GRAHAM Report Released Date/Time: Mar 28, 2020 11:14 AM Reporting Lab: [facility] [address] [facility] [address] Performing Lab: [facility] [address] [facility] [address] WBC 4.8 10*3/uL 4.5-11.0 RBC 4.73 10*6/uL 4.23-5.66 HGB 15.7 g/dl 12.8-17 HEMATOCRIT 46.7 % 39.2-50.4 MCV 98.7 fl 82-99 MCH 33.2 pg H 26.2-32.6 MCHC 33.6 g/dl 30.8-35.1 PLT 158 10*3/uL 140-360 MPV 10.9 fl 9.2-12.4 RDW 12.6 % 12.0-16.0 LYMPH % 26.1 % 14.0-42.3 MONO % 7.4 % 5.1-13.7 NEUT % 65.0 % 43.7-75.8 EOS % 1.1 % 0.4-6.8 BASO % 0.2 % 0.1-2.0 IG % 0.2 % 0.0-0.7 NUCLEATED RED CELLS 0.0 /100 WBC 0.0-0.0 ABSOLUTE IG 0.0 10*3/uL 0-0.06 ABSOLUTE BASOPHILS 0.0 10*3/uL L 0.01-0.13 ABSOLUTE EOS. 0.1 10*3/uL 0.03-0.44 ABSOLUTE LYMPHOCYTES 1.2 10*3/uL 1.0-3.2 ABSOLUTE MONOCYTES 0.4 10*3/uL 0.3-1.1 ABSOLUTE GRANULOCYTES 3.1 10*3/uL 2.2-7. 6 ABSOLUTE NRBC 0.00 10*3/uL 0-0 Mar 28, 2020 [facility] P4 GLU,BUN,CREAT,LYTES,CA Specim en Type: PLASMA 11:26 AM [facility] No comment enter ed. Ordering Provide r: CINTHIA GRAHAM Report Released Date/Time: Mar 28, 2020 11:14 AM Reporting Lab: [facility] [address] [facility] [address] Performing Lab: [facility] [address] [facility] [address] UREA NITROGEN 23 mg/dL 7-25 SODIUM 137 mmol/L 135-145 POTASSIUM 4.1 mmol/L 3.5-5.0 CHLORIDE 105 mmol/L 100-110 CARBON DIOXIDE 25 mmol/L 20-30 ANION GAP 7 mmol/L 4-16 GLUCOSE 98 mg/dL 65-100 CREATININE 1.03 mg/dl 0.5-1.5 CALCIUM 8.6 mg/dL 8.5-10.5 eGFR 69 mL/min >60 Mar 28, 2020 11:26 [facility] LIVER PROFILE Specimen Type : PLASMA AM [facility] No comment enter ed. Ordering Provide r: CINTHIA GRAHAM Report Released Date/Time: Mar 28, 2020 11:14 AM Reporting Lab: [facility] [address] [facility] [address] Performing Lab: [facility] [address] [facility] [address] PROTEIN, TOTAL 6.7 g/dL 6.0-8.5 ALBUMIN 3.7 g/dL 3.2-5.0 BILIRUBIN, TOTAL 1.1 mg/dL 0.2-1.2 ALKALINE PHOSPHATASE 58 U/L 40-150 ALT(SGPT) 21 U/L 7-52 AST(SGOT) 25 U/L 5-34 FIB-4 SCORE 2.90 INDEX H <2.67 Mar 28, 2020 [facility] LIPOPROTEIN CHOLESTEROL Specimen Type: PLASMA 11:26 AM [facility] FRACT. PANEL No comment enter ed. Ordering Provide r: CINTHIA GRAHAM Report Released Date/Time: Mar 28, 2020 11:14 AM Reporting Lab: [facility] [address] [facility] [address] Performing Lab: [facility] [address] [facility] [address] CHOLESTEROL 166 mg/dL 0-199 TRIGLYCERIDE 91 mg/dL 0-149 HDL CHOLESTEROL 53 mg/dL >40 LDL CHOLESTEROL (CALC) 95 mg/dl 0-129 Mar 28, 2020 [place] GLYCOHEMOGLOBIN (A1C Specimen Ty pe: BLOOD 11:26 AM [facility] ONLY) Comment: Refere nce Ranges: 4.0 - 5.6 normal 5.7 - 6.4 pre-diabetes >=6.5% diabetic range. If patient has Not Been diagnosed see [place]-D[place] Diabetes Guidelines for more guidance. http://www.healthquality.va.gov/g uidelines/CD/adrian ame/ Target A1C values should be individualized. Better understanding of A1C test result accuracy is essential if clinicians are to interpret results for Veterans, and discuss treatmen t options throug h the process of Shared Decision Making. Testing performed by NGSP certified [employer]. The [employer] HgA1c assay should not be used to diagnose or monitor diabetes in patients with altered red cell lifespan such as homozygous hemoglobin variant Hb SC, HbF >5% and hemolytic anemia Heterozygous hemoglobin variants do not affect this assay, HbAS, HbAC, HbAD, HbAE, HbA2. Ordering Provide r: CINTHIA GRAHAM Report Released Date/Time: Mar 28, 2020 11:14 AM Reporting Lab: [facility] [address] [facility] [address] Performing Lab: [facility] [address] [facility] [address] HEMOGLOBIN A1C 6.0 % H 4.0-5.6 Mar 28, 2020 11:26 [facility] SARS-COV2 AB IgG Specimen Typ e: SERUM AM [facility] PANEL([facility]) No comment enter ed. Ordering Provide r: CINTHIA GRAHAM Report Released Date/Time: Mar 28, 2020 11:14 AM Reporting Lab: [place] [facility] [address] [facility] [address] Performing Lab: [place] [facility] [address] [facility] [address] SARS-COV2 IgG INTERP([facility]) Negative NEGA TIVE Mar 28, 2020 11:26 AM [facility] VITAMIN B-12 Specimen T ype: SERUM [facility] No comment enter ed. Ordering Provide r: CINTHIA GRAHAM Report Released Date/Time: Mar 28, 2020 11:14 AM Reporting Lab: [place] [facility] [address] [facility] [address] Performing Lab: [facility] [address] [facility] [address] VITAMIN B-12 570 pg/mL 200-900 Mar 28, 2020 11:26 [facility] VIT D 25-OH([facility]) Specimen Typ e: SERUM AM [facility] No comment enter ed. Ordering Provide r: CINTHIA GRAHAM Report Released Date/Time: Mar 28, 2020 11:14 AM Reporting Lab: [place] [facility] [address] [facility] [address] Performing Lab: [place] [facility] [address] [facility] [address] VIT D 25-OH([facility]) 37.8 ng/mL 20-50 Mar 28, 2020 11:26 [facility] URINALYSIS W/REFLEX TO Specim en Type: URINE AM [facility] CULTURE No comment enter ed. Ordering Provide r: CINTHIA GRAHAM Report Released Date/Time: Mar 28, 2020 11:14 AM Reporting Lab: [place] [facility] [address] [facility] [address] Performing Lab: [place] [facility] [address] [facility] [address] URINE COLOR Yellow YELLOW SPECIFIC GRAVITY 1.023 1.003-1.030 UROBILINOGEN <2.0 mg/dL <2.0 URINE BILIRUBIN NEG NEG URINE KETONES NEG mg/dL NEG URINE GLUCOSE NEG mg/dL NEG PROTEIN, URINE NEG mg/dL NEG URINE PH 5.0 5-8 CLARITY CLEAR Clear URINE BLOOD NEG NEG NITRITE, URINE NEG NEG WBC SCREEN NEG NEG Mar 28, 2020 11:26 AM [facility] TSH Spe cimen Type: SERUM No comment enter ed. Ordering Provide r: CINTHIA GRAHAM Report Released Date/Time: Mar 28, 2020 11:14 AM Reporting Lab: [facility] [address] [facility] [address] Performing Lab: [facility] [address] [facility] [address] TSH 1.11 uIU/mL 0.35-5.00 Vital Signs: All taken on the encounter date This section contains inpatient and outpatient Vital Signs collected on the date of the Encounter. Date/Time Temperature Pulse Blood Respiratory SP02 Pain Height Weight Dami dy Source Pressure Rate Mass Index Apr 08, 97.8 F 54 120/70 94 % 0 WHITE 2019 01:27 /min mm[Hg] [facility] Advance Directives: All historical and current Section Date Range: From patient's date of to the date document was created. This section includes ALL of a patient's completed or amended [place] Advance and Rescinded Directives. The entries below indicate that a directive exists for the patient, but an actual copy is not included with this document. The data comes from all [place] facilities. Date Advance Directives Provider Source Jul 31, 2020 ADVANCE DIRECTIVE NATHANIEL SPARKS [facility] Oct 16, 2003 ADVANCE DIRECTIVE JESUS CROWLEY [facility] Radiology Reports: +/- 30 days of the encounter Radiology Reports For cases when an order for radiology services may have been completed prior tothe date of the Encounter, the report list includes the Radiology Reports that were completed up to 30 days before date of the Encounter. For cases when an order for radiology services may have been completed after the date of the Encounter, the report list also includes the Radiology Reports that were completed up to 30 days after date of the Encounter. The data comes from all [place] treatment facilities. Date/Time Radiology Report Provider Source Apr 08, 2020 11:00 AM ULTRASOUND NECK (THYROID,HEAD,SOFT TIS KP): JACKSON WINTER [facility] ASAD MARTINEZ [id number] -1935 M [facility] Exm Date: APR 08, 2020@11:00 Req Phys: CINTHIA GRAHAM Loc : LIT PACT F (Req'g Loc) Img Loc : ULTRASOUND (OOS) Service : Unknown (Case [id number] COMPLETE) ULTRASO UND NECK (THYROID,HEAD,SOF(US Detailed) CPT:62759 Reason for Study: reevaluate thyroid nodule Clinical History: 1. bilateral thyroid nodules largest in t he mid to lower pole of the right gland measuring up to 4.5 cm in size now casuing pain with swallowing. pt has ENT evaluation in March - please c oordinate with ENT visit pt needs shoulder xray as well. susannah sexton dinate with this study of possible Report Status: Verified Da te Reported: APR 08, 2020 Da te Verified: APR 08, 2020 Sash Maker E-Sig:/ES/JACKSON WINTER Report: Ultrasound -- thyroid: The current study is correlated with thyro id ultrasounds of 05/15 and 11/08/2017. The right lobe of the thyroid measures 7.2 x 3.8 x 3.6 cm. There are several solid nodules occupying the lo be. The largest measures 4.5 x 4.3 x 2.9 cm. It has a hete rogeneous generally hypoechoic nodular consistency. Color Dopp ler demonstrates an increase in peripheral blood flow as well as some penetrating vessels. The second largest nodule measure s 1.7 cm and is once again noted to be solid. It is associated with some coarse calcifications. The left lobe measures 4.0 x 1.9 x 1.4 cm. There are several complex hypoechoic lesions. The largest me asures 0.7 cm and is predominantly cystic but with some nodular ity of the luminal surface. The change in appearance is thoug ht to be related to some degeneration of the adenoma. The isthmus is thickened (6.8 mm) particul rebecca on the right as a result of the previously noted large nodul e of the mid to lower pole which bulges into the right side of t he isthmus. Impression: 1. Multinodular goiter. The enlarged righ t lobe of the thyroid containing multiple nodules -- largest peg suring 4.5 cm. No significant interval change as compared wi th the previous 05/15/2018 scan. 2. 0.7 cm mixed cystic solid nodule of the left lobe. Change in appearance is thought to be related to deg eneration of a portion of the adenoma. Primary Diagnostic Code: NO IMMEDIATE ATTENT ION REQUIRED Primary Interpreting Staff: JACKSON WINTER, RADIOLOGY ATTENDING (Sash Maker ) /GONZALO Apr 08, 2020 10:41 AM HIP 2 VIEWS (ROUTINE) INCL PELVIS: Brit WINTERASAD [id number] -1935 M [facility] Exm Date: APR 08, 2020@10:41 Req Phys: CINTHIA GRAHAM Loc : LIT PACT F (Req'g Loc) Img Loc : XRAY (OOS) Service : Unknown (Case [id number] COMPLETE) HIP 2 V IEWS (ROUTINE) INCL PELVIS(RAD Detailed) CPT:90445 Reason for Study: evaluate for DJD or fx Clinical History: 83 yo male with h/o remote fall on right h ip now with intgermitent buttock numbness has ENT appt Mar please coordinate with this Report Status: Verified Da te Reported: APR 08, 2020 Da te Verified: APR 08, 2020 Sash Maker E-Sig:/ES/JACKSON WINETR Report: HIP 2 VIEWS (ROUTINE) INCL PELVIS INDICATION: evaluate for DJD or fx COMPARISON: Pelvic radiograph 03/11/2014 TECHNIQUE: AP pelvis, AP and lateral right hip radiographs FINDINGS: No acute fracture or dislocation . No widening of the pelvic ring. Visualized sacral neuroforame n are intact. Apparent partial fusion of the SI joints bilaterall y. Bilateral hip osteoarthropathy noted -- joint space narr owing with subchondral sclerosis and marginal osteophyte formatio n. Impression: 1. No acute injury. 2. 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 Primary Diagnostic Code: NO IMMEDIATE ATTENT ION REQUIRED Primary Interpreting Staff: JACKSON WINTER RADIOLOGY ATTENDING (Sash Maker ) Primary Interpreting Resident: STELLA GARCIA, Resident Physician /TPK Apr 08, 2020 10:40 AM SHOULDER (ORTHO) 4 VIEWS: JACKSON WINTERASAD [id number] -1935 M [facility] Exm Date: APR 08, 2020@10:40 Req Phys: CINTHIA GRAHAM Loc : LIT PACT F (Req'g Loc) Img Loc : XRAY (OOS) Service : Unknown (Case [id number] COMPLETE) SHOULDE R (ORTHO) 4 VIEWS (RAD Detailed) CPT:42084 Proc Modifiers : RIGHT Reason for Study: evaluate for DJD or mispl aced hardware Clinical History: 83 yo male with chronic low level pain in shoulder and upper arm; has retained hardware. has FROM but TTP ov er AC joint please coordinate with US thyroid; pt has ENT appt on Mar please coordinate all with this Report Status: Verified Da te Reported: APR 08, 2020 Da te Verified: APR 08, 2020 Sash Maker E-Sig:/ES/JACKSON WINTER Report: SHOULDER (ORTHO) 4 VIEWS INDICATION: evaluate for DJD or misplaced hardware COMPARISON: None TECHNIQUE: AP internal rotation, Grashey, scapular Y, and axillary views of the right shoulder FINDINGS: Subjectively decreased bone mine ralization diffusely. Partially visualized plate and screw fixat ion hardware along the humeral shaft is unremarkable. No acute fr acture or dislocation. Glenohumeral joint space is maintained wit h mild subchondral sclerosis. Acromioclavicular alignment is normal. Impression: 1. Plate and screw fixation of the proxim al/mid humeral shaft, partially visualized and without gross com plication. 2. Subjectively osteopenic appearance of t he bones without significant shoulder joint osteoarthropath y. Primary Diagnostic Code: NO IMMEDIATE ATTENT ION REQUIRED Primary Interpreting Staff: JACKSON WINTER, RADIOLOGY ATTENDING (Sash Maker ) Primary Interpreting Resident: STELLA GARCIA, Resident Physician /TPK Encounter Notes: All associated encounter notes This section contains the clinical notes associated to the Encounter. Date/Time Encounter Note(s) Provider Source Apr 08, 2020 01:37 PM OTOLARYNGOLOGY CONSULT: MAURA HURTADO FLORENCE TIRADO [facility] LOCAL TITLE: CONSULT - ENT [facility] STANDARD TITLE: OTOLARYNGOLOGY CONSULT DATE OF NOTE: APR 08, 2020@13:37 ENTRY DATE: APR 08, 2020@13:37:49 AUTHOR: MAURA HURTADO EXP COSIGNER: URGENCY: STATUS: COMPLETED Visit Date: APR 08, 2020 Mr. Asad Martinez is a 84 yo who is referred from The reason for referral is: thyroid nodule We are requested to evaluate and manage as indic ated. CC: hurts when swallowing HPI: when he swallows, intermittently feels ssensitvi ty with salty or sweet he points to the right submandibular gland area and also spseaks of back of tongue issues - the gland does not change in size - he just notices asymmetry - only present when chewing and swallowing - no hemoptysis - not getting any better or worse - has changed to smaller bites of food but does not improve sensation no trouble with pharyngoesophageal passage no change in voice no history of radiation treatment to head or nec k no family history of thyroid cancer or head and neck cancer -->Other ROS: constitutional: a little + weight gain, no fever s or chills respiratory: no wheezing or positional breathing problems cardiac: no chest pain gastrointestinal: no heartbu rn symptoms, epigastric pain - though he is careful about eating close to bedtime because of reflux when he lays down to go to sleep. OTHER MEDICAL PROBLEMS/SURGICAL HISTORY: Active problems - Computerized Problem List is t he source for the followin. Colonic Polyps 2. Arthritis/DJD 3. Benign prostatic hyperplasia (SNOMED CT 2665 43202) 4. Contact dermatitis and other eczema 5. Actinic Keratosis 6. Seborrheic Keratosis 7. Health Maintenance 8. Hyperlipidemia (SNOMED CT 46009265) 9. Headache 10. Neck pain (SNOMED CT 84917323) 11. SNHL - Sensorineural hearing loss (SNOMED CT 96126466) 12. HLD - Hyperlipidemia (SNOMED CT 68023798) FAMILY AND SOCIAL HISTORY: father: d. prostate cancer mother: d. CVA complications siblings: d. pancreatic cancer familial syndromes, cancer complexes, autoimmune illnesses: none. He is one of 11 siblings Occupation: retired ([employer] % - [employer]) Relationships: , with breast cancer, pace maker Living situation: with his . Alcohol: rare Tobacco: never Service Branch Service # Entered S eparated Discharge [employer] [phone] APR 25, 1957 A UG 1960 HONORABLE MEDICINES AND ALLERGIES ALLERGIC TO: Patient has answered NKA MEDICATIONS: simvastatin tamsulosin triamcinolone cream aspirin vitamin PHYSICAL EXAMINATION: CONSTITUTIONAL DATE/TIME TEMP PULSE RESP B P PAIN WEIGHT 04/08/20 @ 1327 97.8 54 1 0 ~ appearance: well appearing man who appears you nger than stated age ~ communication: full volume, tonal range. No ho arseness/breathiness. HEAD AND FACE ~ normocephalic, atraumatic ~ normal facial bony structure ~ no pain to facial palpation ~ right submandibular gland slightly firmer than the left but mobile. bimanual palpation - discrete tenderness of the floor of the mouth right, no palpable stone but very tender to touc h ~ normal facial resting tone, symmetric. ENT ~ normal ear canals and tympanic memranes ~ normal pinnas and nose - bony pyramid straight ~ normal nasal mucosa, ~ normal lips, teeth present - right low er mandibular teeth gone, gums healthy ~ normal oropharyngeal mucosa, tongue moist and without coating, no lesions, tonsils present, tongue mobi le and no floor of mouth abnormality visually or on palpation, no tethering of tongue NECK ~ no crepitus. Trachea is midline. ~ thyroid asymmetric, right side enlarged. NEURO/PSYCH ~ A&Ox3 ~ affect is appropriate ~ cranial nerves II-XII are intact and symmetric RESPIRATORY ~ Breathing is unlabored and not audible. no accessory muscles used for breathing. able to complete a full sentence in one breath . CARDIOVASCULAR ~ extremities are warm, dry, no cyanosis. no clubbing of fingers LYMPHATIC ~ neck: no adenopathy ~ per-auricular: no adenopathy PROCEDURE NOTE Satisfactory view of the larynx, nasopharynx and hypopharynx could not be obtained with a mirror exam. Patient wa s anesthetized with 4%lidocaine and 1% neosynephrine spray. Flexible scope was passed through the nare. Findings: ~ normal pharynx and hypopharynx - no pooled sec retions, no lesions right base of tongue and plossopharyngeal sulcus in region of discomfort are normal ~ normal larynx including epiglottis, supraglott is, vocal cord movement ~ normal nasopharynx including adenoid bed, choa naae, eustachian tubes Patient tolerated the procedure well, there were no complications. Scope(s) used: [id number] Olympus Rhino-Laryngo Videoscope ENF-VH OTHER TESTS AND LAB REVIEW Ultraound of thyroid pending ASSESSMENT/PLANS: 84 year old man who was refe rred for thyroid issue but whose current swallowing complaints are located higher in neck. His issue s today are: 1. 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 If no relief or worsens then we shoul dproceed to neck CT and evaluation for removal of stone or gland. 2. Right sided enlarged thyroid - await official result - i f changed we will take action, if stable we will not take action. He prefers to avoid surgery foor an y reason if possible. Maura Hurtado MD, MS, FACS Beeper: [facility] pager [phone] Phone: [phone] /es/ MAURA HURTADO CHIEF OF OTOLARYNGOLOGY Signed: 04/08/2020 15:48
--- OUTSIDE RECORDS SUMMARY | 2020-08-20 00:59 | XMS_ITS | Encounter Summary ---
:1935 Author Organization Department [facility] Address [address] [place] [address] Care Team Providers Name Role Phone CINTHIA [...] Amaro AARP MEDIGAP PLANC Oct 27, PLANC [id number] [phone] YUKI GREGORY PATIENT PLAN C 2000 221 9 ERT MEDICARE MEDICARE PART Oct 27, PART A [id number] [phone] YUKI GREGORY PATIENT (WNR) (M) A 2000 UA10 1 ERT MEDICARE MEDICARE PART Oct 27, PART B [id number] [phone] YUKI GREGORY PATIENT (WNR) (M) B 2000 UA10 1 ERT Selected Encounter This section includes the information on record at [facility] for the Encounter. Date/Time Encounter Type Encounter Reason Provider Source Description Nov 16, 2019 Outpatient TELEPHONE/SURGERY ICD-10-CM M54.2 STOMPOR,RUSS RY 01:50 PM Encounter Cervicalgia with L S Provider Comments: Neck pain (SCT [id number]) IHE Encounter Template Text not used by VA Assessments - Encounter Diagnoses This section includes the primary and secondary diagnoses documented forthe Encounter. Date/Time Primary/Secondary Diagnosis Name Provider Source Diagnosis Nov 16, 2019 PRIMARY Cervicalgia STOMPOR,MICHAELLE ROSALBA TIRADO 01:50 PM S [facility] Plan of Treatment: Future Appointments (+ 6 months) and Future Tests (+/- 45 days) The Plan of Treatment section includes future care activities for the patient from all [place] treatment facilities. This section includes future appointments and future orders which are active, pending or scheduled.Future Appointments This section includes appointments that were scheduled to occur 6 months from the date of the Encounter, up to a maximum of 20 appointments. The [facility] Appointment Date/Time Appointment Type Appointment Facili ty Name Feb 05, 2020 08:30 AM AMBULATORY - NONE [facility] Mar 28, 2020 10:30 AM AMBULATORY - MEDICINE [facility] Apr 08, 2020 11:00 AM AMBULATORY - NONE [facility] Apr 08, 2020 01:30 PM AMBULATORY - SURGERY [facility] Lab Results: +/- 30 days of the encounter This section includes the Chemistry and Hematology Lab Results on record with VA for the patient. Radiology Reports and Pathology Reports are provided separately, in subsequent sections.Lab Results This section contains the Chemistry/Hematology Results that were resulted 30 days before or 30 days after the date of the Encounter. Date/Time Source Result Type Result - Unit Interpretation Reference Range Comment Nov 07, 2019 [place]BA [place] GLYCOHEMOGLOBIN (A1C Specimen Ty pe: BLOOD 11:11 AM [facility] ONLY) Comment: Refere nce Ranges: 4.0 - 5.6 normal 5.7 - 6.4 pre-diabetes >=6.5% diabetic range. If patient has Not Been diagnosed see [place]-DOD Diabetes Guidelines for more guidance. http://www.healthquality.va.gov/g daija/CD/adrian mccloud/ Target A1C values should be individualized. Better [...] Provide r: CINTHIA GRAHAM Report Released Date/Time: Nov 07, 2019 11:00 AM Reporting Lab: ROSALBA [facility] [address] [facility] [place] [address] Performing Lab: ROSALBA [facility] [address] [facility] Abrhaam [facility] [place] [address] HEMOGLOBIN A1C 5.9 % H 4.0-5.6 Advance Directives: All historical and current Section Date Range: From patient's date of to the date document was created. This section includes ALL of a patient's completed or amended [place] Advance and Rescinded Directives. The entries below indicate that a directive exists for the patient, but an actual copy is not included with this document. The data comes from all [place] facilities. Date Advance Directives Provider Source Jul 31, 2020 ADVANCE DIRECTIVE NATHANIEL SPARKS BENIGNO T [facility] Oct 16, 2003 ADVANCE DIRECTIVE JESUS CROWLEY [facility]IG[facility] T [facility] Encounter Notes: All associated encounter notes This section contains the clinical notes associated to the Encounter. Date/Time Encounter Note(s) Provider Source Nov 16, 2019 01:50 PM OTOLARYNGOLOGY TELEPHONE ENCOUNTER NOTE: MICHAELLE LOMAX ROSALBA TIRADO T LOCAL TITLE: ENT/Telephone Note [facility] STANDARD TITLE: OTOLARYNGOLOGY TELEPHONE ENCOUNT ER NOTE DATE OF NOTE: NOV 16, 2019@13:50 ENTRY DATE: NOV 16, 2019@13:50:41 AUTHOR: MICHAELLE TERRY EXP COSIGNER: URGENCY: STATUS: COMPLETED re: appt on 11/[address] Wills for odynophagia / US at 1pm Due to COVID19 appts are to be triaged prior to appt to determine if encounter is appropriate for telephone appt by provider or in person appt due to severity of patient condition. Reviewed with Dr. Wills- appropriate for in per son appt at 3pm 11/19 /confirmed with - he is feeling healthy w ithout cough/fever /es/ Michaelle Terry LPN ENT/Specialties Signed: 11/16/2019 13:55
--- OUTSIDE RECORDS SUMMARY | 2020-08-20 00:59 | XMS_ITS | Encounter Summary ---
:1935 Author Organization [facility] Address [address] [place] [id number] Care Team Providers Name Role Phone CINTHIA [...] Amaro AARP MEDIGAP PLANC Oct 27, PLANC [id number] [phone] YUKI MARTINEZ PATIENT PLAN C 2000 221 9 ERT MEDICARE MEDICARE PART Oct 27, PART A [id number] [phone] YUKI MARTINEZ PATIENT (WNR) (M) A 2000 UA10 1 ERT MEDICARE MEDICARE PART Oct 27, PART B [id number] [phone] YUKI MARTINEZ PATIENT (WNR) (M) B 2000 UA10 1 ERT Selected Encounter This section includes the information on record at VA for the Encounter. Date/Time Encounter Type Encounter Reason Provider Source Description Nov 21, 2019 Outpatient TELEPHONE/SURGERY ICD-10-CM MAURA HURTADO 03:02 PM Encounter E04.1 Nontoxic single thyroid nodule with Provider Comments: Nontoxic single Thyroid Nodule IHE Encounter Template Text not used by VA Assessments - Encounter Diagnoses This section includes the primary and secondary diagnoses documented forthe Encounter. Date/Time Primary/Secondary Diagnosis Name Provider Source Diagnosis Nov 21, 2019 PRIMARY Nontoxic single HURTADOLISA BECKE ROSALBA TIRADO 03:02 PM thyroid nodule T [facility] Nov 21, 2019 PRIMARY Nontoxic single HURTADOMAURA BECK 03:02 PM thyroid nodule [facility] Nov 21, 2019 PRIMARY Nontoxic single HURTADOMAURA BECK 03:02 PM thyroid nodule [facility] Nov 21, 2019 SECONDARY Other dysphagia HURTADOMAURA BECK 03:02 PM [facility] Nov 21, 2019 SECONDARY Other dysphagia HURTADOMAURA BECK 03:02 PM [facility] Plan of Treatment: Future Appointments (+ 6 months) and Future Tests (+/- 45 days) The Plan of Treatment section includes future care activities for the patient from all [place] treatment facilities. This section includes future appointments and future orders which are active, pending or scheduled.Future Appointments This section includes appointments that were scheduled to occur 6 months from the date of the Encounter, up to a maximum of 20 appointments. The data comes from all [facility]. Appointment Date/Time Appointment Type Appointment Facili ty Name Feb 05, 2020 08:30 AM AMBULATORY - NONE [facility] Mar 28, 2020 10:30 AM AMBULATORY - MEDICINE [facility] Apr 08, 2020 11:00 AM AMBULATORY - NONE [facility] Apr 08, 2020 01:30 PM AMBULATORY - SURGERY [facility] Lab Results: +/- 30 days of the [...] Reference Range Comment Nov 07, 2019 ROSALBA [place] GLYCOHEMOGLOBIN (A1C Specimen Ty pe: BLOOD 11:11 AM [facility] ONLY) Comment: Refere nce Ranges: 4.0 - 5.6 normal 5.7 - 6.4 pre-diabetes >=6.5% diabetic range. If patient has Not Been diagnosed see [place]-DOD Diabetes Guidelines for more guidance. http://www.healthquality.va.gov/g uidelines/CD/adrian [...] Nov 07, 2019 11:00 AM Reporting Lab: [facility] [address] [facility] [address] Performing Lab: [facility] [address] [facility] [address] HEMOGLOBIN A1C 5.9 % H 4.0-5.6 Advance Directives: All historical and current Section Date Range: From patient's date of to the date document was created. This section includes ALL of a patient's completed or amended [place] Advance and Rescinded Directives. The entries below indicate that a directive exists for the patient, but an actual copy is not included with this document. The data comes from all [place] facilities. Date Advance Directives Provider Source Jul 31, 2020 ADVANCE DIRECTIVE BRIDGERNATHANIEL [facility] T [facility] Oct 16, [address] [facility] Encounter Notes: All associated encounter notes This section contains the clinical notes associated to the Encounter. Date/Time Encounter Note(s) Provider Source Nov 21, 2019 03:02 PM OTOLARYNGOLOGY TELEPHONE ENCOUNTER NOTE: [facility]URA SCHMITZ [facility] LOCAL TITLE: ENT/Telephone Note [facility] STANDARD TITLE: OTOLARYNGOLOGY TELEPHONE ENCOUNT ER NOTE DATE OF NOTE: NOV 21, 2019@15:02 ENTRY DATE: NOV 21, 2019@15:03 AUTHOR: MAURA HURTADO EXP COSIGNER: URGENCY: STATUS: COMPLETED NOV 21, 2019 TELEPHONE CALL REGARDING: Mr. Asad Martinez TELEPHONE CALL TO:Mr. Asad Martinez home phone: [phone] PHONE CALL DESCRIPTION I am calling Mr. Asad Martinez, an established pa tient with our clinic who was referred with new swallowing issues and known th yroid goiter. PURPOSE OF PHONE CALL: - Discuss and evaluate new information and deta ils - Initiate new plan of care SUMMARY OF DISCUSSION: - the patient is aware of swallowing symptoms t hat he feels are due to the thyroid nodule but they are not advancing in severity and he is able to eat his regular diet. He is not losing weight nor is he having pain - he says he just wants to get things checked but feels waiting until summer would be ok, wants to do ultrasound at same time as visit with us. PLAN: - will ask that the consult be rebooked to a date in March and the ultrasound exam be coordinated with it. Maura Hurtado MD, MS, FACS Chief - Otolaryngology head & Neck Surgery [facility] Beeper: [facility] pager [phone] Phone: [phone] /es/ MAURA HURTADO CHIEF OF OTOLARYNGOLOGY Signed: 11/21/2019 15:28
--- OUTSIDE RECORDS SUMMARY | 2020-08-20 00:59 | XMS_ITS | Encounter Summary ---
:1935 Author Organization Department [facility] Address [address] [place] [address] Care Team Providers Name Role Phone CINTHIA [...] Amaro AARP MEDIGAP PLANC Oct 27, PLANC [id number] [phone] YUKI MARTINEZ PATIENT PLAN C 2000 221 9 ERT MEDICARE MEDICARE PART Oct 27, PART A [id number] [phone] YUKI MARTINEZ PATIENT (WNR) (M) A 2000 UA10 1 ERT MEDICARE MEDICARE PART Oct 27, PART B [id number] [phone] YUKI MARTINEZ PATIENT (WNR) (M) B 2000 UA10 1 ERT Selected Encounter This section includes the information on record at [place] for the Encounter. Date/Time Encounter Type Encounter Description Reason Provider Source Mar 30, 2020 01:00 Outpatient Encounter PRIMARY CARE/MEDICINE PM IHE Encounter Template Text not used by VA Plan of Treatment: Future Appointments (+ 6 months) and Future Tests (+/- 45 days) The Plan of Treatment section includes future care activities for the patient from all [place] treatment facilities. This section includes future appointments and future orders which are active, pending or scheduled.Future Appointments This section includes appointments that were scheduled to occur 6 months from the date of the Encounter, up to a maximum of 20 appointments. The data comes [facility] [place] [facility] Appointment Date/Time Appointment Type Appointment Facili ty Name Apr 08, 2020 11:00 AM AMBULATORY - NONE [facility] Apr 08, 2020 01:30 PM AMBULATORY - SURGERY [facility] Sep 30, 2020 02:00 PM AMBULATORY - MEDICINE [facility] Lab Results: +/- 30 [...] Range Comment Mar 28, 2020 11:26 AM [facility] CBC PROFILE Spe cimen Type: BLOOD No comment enter ed. Ordering Provide r: CINTHIA GRAHAM Report Released Date/Time: Mar 28, 2020 11:14 AM Reporting Lab: [facility] [address] [facility] [address] Performing Lab: [facility] [address] [facility] [address] WBC 4.8 10*3/uL 4.5-11.0 RBC 4.73 10*6/uL [...] NRBC 0.00 10*3/uL 0-0 Mar 28, 2020 [facility] P4 GLU,BUN,CREAT,LYTES,CA Specim en Type: PLASMA 11:26 AM [facility] No comment enter ed. Ordering Provide r: CINTHIA GRAHAM Report Released Date/Time: Mar 28, 2020 11:14 AM Reporting Lab: [address] [address] Performing Lab: [address] [address] UREA NITROGEN 23 mg/dL 7-25 SODIUM 137 mmol/L 135-145 POTASSIUM 4.1 mmol/L 3.5-5.0 CHLORIDE 105 mmol/L 100-110 CARBON DIOXIDE 25 mmol/L 20-30 ANION GAP 7 mmol/L 4-16 GLUCOSE 98 mg/dL 65-100 CREATININE 1.03 mg/dl 0.5-1.5 CALCIUM 8.6 mg/dL 8.5-10.5 eGFR 69 mL/min >60 Mar 28, 2020 11:26 [facility] LIVER PROFILE Specimen Type : PLASMA AM [facility] No comment enter ed. Ordering Provide r: CINTHIA GRAHAM Report Released Date/Time: Mar 28, 2020 11:14 AM Reporting Lab: [facility] [address] [facility] [address] Performing Lab: [address] [address] PROTEIN, TOTAL 6.7 g/dL 6.0-8.5 ALBUMIN 3.7 g/dL 3.2-5.0 BILIRUBIN, TOTAL 1.1 mg/dL 0.2-1.2 ALKALINE PHOSPHATASE 58 U/L 40-150 ALT(SGPT) 21 U/L 7-52 AST(SGOT) 25 U/L 5-34 FIB-4 SCORE 2.90 INDEX H <2.67 Mar 28, 2020 [facility] LIPOPROTEIN CHOLESTEROL Specimen Type: PLASMA 11:26 AM [facility] FRACT. PANEL No comment enter ed. Ordering Provide r: CINTHIA GRAHAM Report Released Date/Time: Mar 28, 2020 11:14 AM Reporting [facility] [address] [facility] [address] Performing Lab: [facility] [address] [facility] [address] CHOLESTEROL 166 mg/dL 0-199 TRIGLYCERIDE 91 mg/dL 0-149 HDL CHOLESTEROL 53 mg/dL >40 LDL CHOLESTEROL (CALC) 95 mg/dl 0-129 Mar 28, 2020 [place] GLYCOHEMOGLOBIN (A1C Specimen Ty pe: BLOOD 11:26 AM [facility] ONLY) Comment: Refere nce Ranges: 4.0 - 5.6 normal 5.7 - 6.4 pre-diabetes >=6.5% diabetic range. If patient has Not Been diagnosed see [place] Diabetes Guidelines for more guidance. http://www.healthquality.va.gov/g daija/CD/adrian ame/ Target A1C values should be individualized. [...] 2020 11:14 AM Reporting [facility] [address] [facility] [address] Performing Lab: [facility] [address] [facility] [address] HEMOGLOBIN A1C 6.0 % H 4.0-5.6 Mar 28, 2020 11:26 [facility] SARS-COV2 AB IgG Specimen Typ e: SERUM AM [facility] PANEL(WRJ) No comment enter ed. Ordering Provide r: CINTHIA GRAHAM Report Released Date/Time: Mar 28, 2020 11:14 AM Reporting Lab[facility] [address] [facility] [address] Performing Lab: [facility] [address] [facility] [address] SARS-COV2 IgG INTERP([facility]) Negative NEGA TIVE Mar 28, 2020 11:26 AM [facility] VITAMIN B-12 Specimen T ype: SERUM [facility] No comment enter ed. Ordering Provide r: CINTHIA GRAHAM Report Released Date/Time: Mar 28, 2020 11:14 AM Reporting Lab: [facility] [address] [facility] [address] Performing Lab: [facility] [address] [facility] [address] VITAMIN B-12 570 pg/mL 200-900 Mar 28, 2020 11:26 [facility] VIT D 25-OH([facility]) Specimen Typ e: SERUM AM [facility] No comment enter ed. Ordering Provide r: CINTHIA GRAHAM Report Released Date/Time: Mar 28, 2020 11:14 AM Reporting Lab: [facility] [address] [facility] [address] Performing Lab: [facility] [address] [facility] [address] VIT D 25-OH([facility]) 37.8 ng/mL 20-50 Mar 28, 2020 11:26 [facility] URINALYSIS W/REFLEX TO Specim en Type: URINE AM [facility] CULTURE No comment enter ed. Ordering Provide r: CINTHIA GRAHAM Report Released Date/Time: Mar 28, 2020 11:14 AM Reporting Lab: [facility] [address] [facility] [address] Performing Lab: [facility] [address] [facility] [address] URINE COLOR Yellow YELLOW SPECIFIC GRAVITY 1.023 1.003-1.030 UROBILINOGEN <2.0 mg/dL <2.0 URINE BILIRUBIN NEG NEG URINE KETONES NEG mg/dL NEG URINE GLUCOSE NEG mg/dL NEG PROTEIN, URINE NEG mg/dL NEG URINE PH 5.0 5-8 CLARITY CLEAR Clear URINE BLOOD NEG NEG NITRITE, URINE NEG NEG WBC SCREEN NEG NEG Mar 28, 2020 11:26 AM [facility] TSH Spe cimen Type: SERUM No comment enter ed. Ordering Provide r: CINTHIA GRAHAM Report Released Date/Time: Mar 28, 2020 11:14 AM Reporting Lab: ROSALBA TIRADO [facility] [address] [facility] [address] Performing Lab: ROSALBA TIRADO Reza [facility] [address] [facility] [address] TSH 1.11 uIU/mL 0.35-5.00 Social History: Smoking Status (Most current) and Tobacco Use (All prior to encounter date) This section includes the most current, and the historical, smoking and tobacco-related health factors from the [place] facility where the Encounter took place.Current Smoking Status This section includes the most current smoking, or tobacco-related health factor, from the [place] facility where the Encounter took place. Date/Time Current Smoking Status Comment Facility Apr 26, 2019 10:32 AM [facility] Tobacco Use History This section includes a history of the smoking, or tobacco-related health factors, that were collected on or before the date of the Encounter. The data comes from the [place] facility where the Encounter took place. Date/Time Smoking Status/Tobacco Use Comment [facility] Apr 27, 2018 11:17 AM MI-TOBACCO NEVER USED [facility] Oct 07, 2016 08:36 AM LIFETIME NON-TOBACCO USER [facility] Sep 08, 2015 01:09 PM LIFETIME NON-TOBACCO USER [facility] Oct 21, 2004 10:03 AM [address]IFETIME NON-SMOKER [facility] Oct 28, 2003 03:35 PM LIFETIME NON-SMOKER [facility] Nov 19, 2002 10:17 AM LIFETIME NON-SMOKER [facility] Advance Directives: All historical and current Section Date Range: From patient's date of to the date document was created. This section includes ALL of a patient's completed or amended [place] Advance and Rescinded Directives. The entries below indicate that a directive exists for the patient, but an actual copy is not included with this document. The data comes from all [place] facilities. Date Advance Directives Provider Source Jul 31, 2020 ADVANCE DIRECTIVE NATHANIEL SPARKS [facility] T [facility] Oct 16, 2003 ADVANCE DIRECTIVE JESUS CORWLEY [facility] Radiology Reports: +/- 30 days of the [...] the Encounter. The data comes from all [place] treatment facilities. Date/Time Radiology Report Provider Source Apr 08, 2020 11:00 AM ULTRASOUND NECK (THYROID,HEAD,SOFT TIS KP): JACKSON WINTER T ASAD MARTINEZ [id number] -1935 [facility] Ex[facility] Date: APR 08, 2020@11:00 Req Phys: CINTHIA GRAHAM Loc : LIT PACT F (Req'g Loc) Img Loc : ULTRASOUND (OOS) Service : Unknown (Case [id number] COMPLETE) ULTRASO UND NECK (THYROID,HEAD,SOF(US Detailed) CPT:79905 Reason for Study: reevaluate thyroid nodule Clinical [...] 2020 Da te Verified: APR 08, 2020 Sales Representative [employer]ing E-Sig:/ES/JACKSON WINTER Report: Ultrasound -- thyroid: The [...] Primary Interpreting Staff: JACKSON WINTER, RADIOLOGY ATTENDING (Sales Representative Printing ) /GONZALO Apr 08, 2020 10:41 AM HIP 2 VIEWS (ROUTINE) INCL PELVIS: Brit WINTER [facility] ASAD MARTINEZ [id number] 1935 M [facility] Ex Date: APR 08, 2020@10:41 Req Phys: CINTHIA GRAHAM Loc : LIT PACT F (Req'g Loc) Img Loc : XRAY (OOS) Service : Unknown (Case [id number] COMPLETE) HIP 2 V IEWS (ROUTINE) INCL PELVIS(RAD Detailed) CPT:12875 Reason for Study: evaluate for DJD or fx Clinical History: 83 yo male with h/o remote fall on right h ip now with intgermitent buttock numbness has ENT appt Mar please coordinate with this Report Status: Verified Da te Reported: APR 08, 2020 Da te Verified: APR 08, 2020 Sales Representative [employer] E-Sig:/ES/JACKSON WINTER Report: HIP 2 VIEWS (ROUTINE) INCL PELVIS [...] Primary Interpreting Staff: JACKSON WINTER, RADIOLOGY ATTENDING (Sales Representative [employer]ing ) Primary Interpreting Resident: STELLA GARCIA, Resident Physician /TPK Apr 08, 2020 10:40 AM SHOULDER (ORTHO) 4 VIEWS: JACKSON WINTER CELESTINO ASAD KING [id number] -1935 M [facility] Exm Date: APR 08, 2020@10:40 Req Phys: GLADYSCINTHIA Erica Loc : LIT PACT F (Req'g Loc) Img Loc : XRAY (OOS) Service : Unknown (Case [id number] COMPLETE) SHOULDE R (ORTHO) 4 VIEWS (RAD Detailed) CPT:20273 Proc Modifiers : RIGHT Reason for Study: [...] 2020 Da te Verified: APR 08, 2020 Sales Representative [employer] E-Sig:/ES/JACKSON WINTER Report: SHOULDER (ORTHO) 4 VIEWS [...] Primary Interpreting Staff: JACKSON WINTER, RADIOLOGY ATTENDING (Sales Representative [employer]ing ) Primary Interpreting Resident: STELLA GARCIA, Resident Physician /TPK Encounter Notes: All associated encounter notes This section contains the clinical notes associated to the Encounter. Date/Time Encounter Note(s) Provider Source Mar 30, 2020 01:00 PM LETTERS: CINTHIA GRAHAM [facility] LOCAL TITLE: Letter to Patient - [place] STANDARD TITLE: LETTERS DATE OF NOTE: MAR 30, 2020@13:00 ENTRY DATE: MAR 30, 2020@13:00:41 AUTHOR: CINTHIA GRAHAM EXP COSIGNER: URGENCY: STATUS: COMPLETED [facility] [address] [place] [address] MAR 30, 2020 MR. ASAD MARTINEZ [address] [place] [address] Dear Mr. Martinez, Attached are your lab test results from 28 March 2020. 1. Sugar (A1c) is slowly rising - better diet, more exrcise (even if it hurts) will help this. 2. The remainder of the labs are acceptable. Please don't hesitate to call if you have any qu estions or concerns, . Sincerely, CINTHIA GRAHAM Physician [facility]
--- OUTSIDE RECORDS SUMMARY | 2020-08-20 00:59 | XMS_ITS | Encounter Summary ---
:[address] [facility] Address [address] [place] [id number] Care Team Providers Name Role Phone CINTHIA [...] Amaro AARP [employer]IG[employer] PLANC Oct 27, PLANC [id number] [phone] YUKI GREGORY PATIENT PLAN C 2000 221 9 ERT MEDICARE MEDICARE PART Oct 27, PART A [id number] YUKI GREGORY PATIENT (WNR) (M) A 2000 UA10 1 ERT MEDICARE MEDICARE PART Oct 27, PART B [id number] YUKI GREGORY PATIENT (WNR) (M) B 2000 UA10 1 ERT Selected Encounter This section includes the information on record at [place] for the Encounter. Date/Time Encounter Type Encounter Description Reason Provider Source Dec 25, 2019 03:53 Outpatient Encounter TELEPHONE TRIAGE PM IHE Encounter Template Text not used [...] 20 appointments. [facility] Appointment Date/Time Appointment Type Appointment Facili ty Name Feb 05, 2020 08:30 AM AMBULATORY - NONE [facility] Mar 28, 2020 10:30 AM [facility] Apr 08, 2020 11:00 AM AMBULATORY - NONE [facility] Apr 08, 2020 01:30 PM [facility] Advance Directives: All historical and current Section Date Range: From patient's date of to the date document was created. This section includes ALL of a patient's completed or amended [place] Advance and Rescinded Directives. The entries below indicate that a directive exists for the patient, but an actual copy is not included with this document. The data comes from all [place] facilities. Date Advance Directives Provider Source Jul 31, 2020 ADVANCE DIRECTIVE RAGHAVENDRA SPARKSA [facility] Oct 16, 2003 ADVANCE DIRECTIVE CARLINEJESUS [facility] Encounter Notes: All associated encounter notes This section contains the clinical notes associated to the Encounter. Date/Time Encounter Note(s) Provider Source Dec 25, 2019 03:53 PM PRIMARY CARE ADMINISTRATIVE NOTE: KIA AGARWAL [facility] LOCAL TITLE: Administrative Note/Primary Care STANDARD TITLE: PRIMARY CARE ADMINISTRATIVE NOTE DATE OF NOTE: DEC 25, 2019@15:53 ENTRY DATE: DEC 25, 2019@15:53:07 AUTHOR: HUNTER AGARWAL COSIGNER: URGENCY: STATUS: COMPLETED Patient spouse called to confirm message she rec eived, to cancel February 22 2020 appt at 10:00 and that patient has appt March 28 2020 at 10:30. Confirmed info with patient, she said message was not clear on her voicemail. /[email or web address]/ HUNTER AGARWAL AMSA Signed: 12/25/2019 15:54
--- OUTSIDE RECORDS SUMMARY | 2020-08-20 00:59 | XMS_ITS ---
:1935 Author Organization [facility] Address [address] [place] [address] Care Team Providers Name Role Phone CINTHIA [...] Amaro AARP MEDIGAP PLANC Oct 27, PLANC [id number] [id number] YUKI MARTINEZ PATIENT PLAN C 2000 221 9 ERT MEDICARE MEDICARE PART Oct 27, PART A [id number] [phone] YUKI MARTINEZ PATIENT (WNR) (M) A 2000 UA10 1 ERT MEDICARE MEDICARE PART Oct 27, PART B [id number] [phone] YUKI MARTINEZ PATIENT (WNR) (M) B 2000 UA10 1 ERT Selected Encounter This section includes the information on record at [place] for the Encounter. Date/Time Encounter Type Encounter Reason Provider Source Description Mar 28, 2020 OFFICE OR OTHER PRIMARY ICD-10-CM R13.10 ALEJANDRO GRAHAM 10:30 AM OUTPATIENT VISIT CARE/MEDICINE Dysphagia, EL FOR THE EVALUATION unspecified with AND MANAGEMENT OF Provider AN ESTABLISHED Comments: PATIENT, WHICH Dysphagia, REQUIRES AT LEAST unspecified 2 OF THESE 3 WONG COMPONENTS: A DETAILED HISTORY; A DETAILED EXAMINATION; MEDICAL DECISION MAKING OF MODERATE COMPLEXITY. COUNSELING AND/OR COORDINATION OF CARE WITH OTHER PHYSICIANS, OTHER QUALIFIED HEALTH HAND PLUG SHAPER, OR AGENCIES ARE PROVIDED CONSISTENT WITH THE NATURE OF THE PROBLEM(S) AND THE PATIENT'S AND/OR FAMILY'S NEEDS. USUALLY, THE PRESENTING PROBLEM(S) ARE OF MODERATE TO HIGH SEVERITY. TYPICALLY, 25 MINUTES ARE SPENT SILY-NQ-SLPX WITH THE PATIENT AND/OR FAMILY. IHE Encounter Template Text not used by VA Assessments - Encounter Diagnoses This section includes the primary and secondary diagnoses documented forthe Encounter. Date/Time Primary/Secondary Diagnosis Name Provider Source Diagnosis Apr 01, 2020 PRIMARY Dysphagia, [place] [facility] 02:28 PM unspecified [facility] Apr 01, 2020 PRIMARY Dysphagia, [facility]IN[place] [facility] 02:28 PM unspecified [facility] Apr 01, 2020 PRIMARY Pain in right [facility] [facility] 02:[place] PM shoulder [facility] Apr 01, 2020 SECONDARY Encounter for [facility] 02:[place] PM immunization [facility] Apr 01, 2020 SECONDARY Encounter for [place] 02:28 PM immunization [facility] Apr 01, 2020 SECONDARY Hyperlipidemia, [facility]IN[facility] 02:28 PM unspecified [facility] Apr 01, 2020 SECONDARY Hyperlipidemia, [place] [facility] 02:28 PM unspecified [facility] Apr 01, 2020 SECONDARY Hyperlipidemia, [facility]IN[facility] 02:28 PM unspecified [facility] Apr 01, 2020 SECONDARY half-way (current) DESTINYROBERTA BEATRIS [place]UR[place] 02:28 PM use of aspirin [facility] Apr 01, 2020 SECONDARY half-way (current) DESTINYROBERTA BEATRIS SBUR[place] 02:28 PM use of aspirin [facility] Apr 01, 2020 SECONDARY Nontoxic single [facility] [facility] 02:28 PM thyroid nodule [facility] Apr 01, 2020 SECONDARY Nontoxic single [facility] [facility] 02:28 PM thyroid nodule [facility] Apr 01, 2020 SECONDARY Nontoxic single [facility] [facility] 02:28 PM thyroid nodule [facility] Apr 01, 2020 SECONDARY Other specified [facility] [facility] 02:28 PM forms of tremor [facility] Apr 01, 2020 SECONDARY Other specified [facility] [facility] 02:28 PM forms of tremor [facility] Apr 01, 2020 SECONDARY Pain in right hip [facility]STINYROBERTA [facility] 02:28 PM [facility] Apr 01, 2020 SECONDARY Pain in right DESTINY,ROBERTA LINDO 02:28 PM shoulder [facility] Apr 01, 2020 SECONDARY Pain in right DESTINY,ROBERTA LINDO 02:28 PM shoulder [facility] Apr 01, 2020 SECONDARY Paresthesia of skin DESTINY,ROBERTA SPEAR SBURY 02:28 PM [facility] Apr 01, 2020 SECONDARY Paresthesia of skin DESTINY,ROBERTA SPEAR SBURY 02:28 PM [facility] Apr 01, 2020 SECONDARY Sensorineural DESTINY,ROBERTA LINDO 02:28 PM hearing loss, [facility] bilateral Apr 01, 2020 SECONDARY Sensorineural DESTINY,ROBERTA LINDO 02:28 PM hearing loss, [facility] bilateral Plan of Treatment: Future Appointments (+ 6 months) and Future Tests (+/- 45 days) The Plan of Treatment section includes future care activities for the patient from all [place] treatment facilities. This section includes future appointments and future orders which are active, pending or scheduled.Future Appointments This section includes appointments that were scheduled to occur 6 months from the date of the Encounter, up to a maximum of 20 appointments. The [facility] [place] [facility] Appointment Date/Time Appointment Type Appointment Facili ty Name Apr 08, 2020 11:00 AM AMBULATORY - NONE [facility] Apr 08, 2020 01:30 PM AMBULATORY - SURGERY [facility] Lab Results: +/- 30 days [...] AM Reporting Lab: [facility] [address] [address] Performing Lab: [facility] [address] [address] WBC 4.8 10*3/uL 4.5-11.0 RBC 4.73 10*6/uL [...] NRBC 0.00 10*3/uL 0-0 Mar 28, 2020 [facility] P4 GLU,BUN,CREAT,LYTES,CA Specim en Type: PLASMA 11:26 AM [facility] No comment enter ed. Ordering Provide r: CINTHIA GRAHAM Report Released Date/Time: Mar 28, 2020 11:14 AM Reporting Lab: [facility] [address] [address] Performing Lab: [facility] [address] [address] UREA NITROGEN 23 mg/dL 7-25 SODIUM 137 mmol/L 135-145 POTASSIUM 4.1 mmol/L 3.5-5.0 CHLORIDE 105 mmol/L 100-110 CARBON DIOXIDE 25 mmol/L 20-30 ANION GAP 7 mmol/L 4-16 GLUCOSE 98 mg/dL 65-100 CREATININE 1.03 mg/dl 0.5-1.5 CALCIUM 8.6 mg/dL 8.5-10.5 eGFR 69 mL/min >60 Mar 28, 2020 11:26 [facility] LIVER PROFILE Specimen Type : PLASMA AM [facility] No comment enter ed. Ordering Provide r: CINTHIA GRAHAM Report Released Date/Time: Mar 28, 2020 11:14 AM Reporting Lab: [facility] [address] [address] Performing Lab: [facility] [address] [address] PROTEIN, TOTAL 6.7 g/dL 6.0-8.5 ALBUMIN 3.7 g/dL 3.2-5.0 BILIRUBIN, TOTAL 1.1 mg/dL 0.2-1.2 ALKALINE PHOSPHATASE 58 U/L 40-150 ALT(SGPT) 21 U/L 7-52 AST(SGOT) 25 U/L 5-34 FIB-4 SCORE 2.90 INDEX H <2.67 Mar 28, 2020 [facility] LIPOPROTEIN CHOLESTEROL Specimen Type: PLASMA 11:26 AM [facility] FRACT. PANEL No comment enter ed. Ordering Provide r: CINTHIA GRAHAM Report Released Date/Time: Mar 28, 2020 11:14 AM Reporting Lab: [facility] [address] [address] Performing Lab: [facility] [address] [address] CHOLESTEROL 166 mg/dL 0-199 TRIGLYCERIDE 91 mg/dL 0-149 HDL CHOLESTEROL 53 mg/dL >40 LDL CHOLESTEROL (CALC) 95 mg/dl 0-129 Mar 28, 2020 [facility] GLYCOHEMOGLOBIN (A1C Specimen Ty pe: BLOOD 11:26 AM [facility] ONLY) Comment: Refere nce Ranges: 4.0 - 5.6 normal 5.7 - 6.4 pre-diabetes >=6.5% diabetic range. If patient has Not Been diagnosed see [place]-D[place] Diabetes Guidelines for more guidance. http://www.healthquality.va.gov/g basilines/CD/adrian ame/ Target A1C values should be individualized. [...] Mar 28, 2020 11:14 AM Reporting Lab: [facility] [address] [address] Performing Lab: [facility] [address] [address] HEMOGLOBIN A1C 6.0 % H 4.0-5.6 Mar 28, 2020 11:26 [facility] SARS-COV2 AB IgG Specimen Typ e: SERUM [facility] PANEL([facility]) No comment enter ed. Ordering Provide r: CINTHIA GRAHAM Report Released Date/Time: Mar 28, 2020 11:14 AM Reporting Lab: [facility] [address] [address] Performing Lab: [facility] [address] [address] SARS-COV2 IgG INTERP([facility]) Negative NEGA TIVE Mar 28, 2020 11:26 AM [place]IT[place] B-12 Specimen T ype: [facility] No comment enter ed. Ordering Provide r: CINTHIA GRAHAM Report Released Date/Time: Mar 28, 2020 11:14 AM Reporting Lab: [facility] [address] [address] Performing Lab: [facility] [address] [address] VITAMIN B-12 570 pg/mL 200-900 Mar 28, 2020 11:26 [place] VIT D 25-[place]([facility]) Specimen Typ e: SERUM [facility] No comment enter ed. Ordering Provide r: CINTHIA GRAHAM Report Released Date/Time: Mar 28, 2020 11:14 AM Reporting Lab: [facility] [address] [address] Performing Lab: [facility] [address] [address] VIT D 25-[place]([facility]) 37.8 ng/mL 20-50 Mar 28, 2020 11:26 [facility] URINALYSIS W/REFLEX TO Specim en Type: URINE AM [facility] CULTURE No comment enter ed. Ordering Provide r: CINTHIA GRAHAM Report Released Date/Time: Mar 28, 2020 11:14 AM Reporting [facility] [address] [address] Performing Lab: [facility] [address] [address] URINE COLOR Yellow YELLOW SPECIFIC GRAVITY 1.023 1.003-1.030 UROBILINOGEN <2.0 mg/dL <2.0 URINE BILIRUBIN NEG NEG URINE KETONES NEG mg/dL NEG URINE GLUCOSE NEG mg/dL NEG PROTEIN, URINE NEG mg/dL NEG URINE PH 5.0 5-8 CLARITY CLEAR Clear URINE BLOOD NEG NEG NITRITE, URINE NEG NEG WBC SCREEN NEG NEG Mar 28, 2020 11:26 AM [facility] TSH Spe cimen Type: SERUM No comment enter ed. Ordering Provide r: CINTHIA GRAHAM Report Released Date/Time: Mar 28, 2020 11:14 AM Reporting [facility] [address] [address] Performing Lab: [facility] [address] [address] TSH 1.11 uIU/mL 0.35-5.00 Immunizations: All administered on the encounter date This section contains immunizations associated to the Encounter. Immunization Series Date Issued Reaction Comments ZOSTER RECOMBINANT 2 Mar 28, 2020 Social History: Smoking Status (Most current) and Tobacco Use (All prior to encounter date) This section includes the most current, and the historical, smoking and tobacco-related health factors from the [place] facility where the Encounter took place.Current Smoking Status This section includes the most current smoking, or tobacco-related health factor, from the [place] facility where the Encounter took place. Date/Time Current Smoking Status Comment Facility Apr 26, 2019 10:32 AM [place]-TOBACCO NEVER USED [facility] Tobacco Use History This section includes a history of the smoking, or tobacco-related health factors, that were collected on or before the date of the Encounter. The data comes from the [place] facility where the Encounter took place. Date/Time Smoking Status/Tobacco Use Comment [facility] Apr 27, 2018 11:17 AM VA-TOBACCO NEVER USED [facility] Oct 07, 2016 08:36 AM LIFETIME NON-TOBACCO USER [facility] Sep 08, 2015 01:09 PM LIFETIME NON-TOBACCO [facility]ER [facility] Oct 21, 2004 10:03 AM [address]ETIME NON-SMOKER [facility] Oct 28, 2003 03:35 PM LIFETIME NON-SMOKER [facility] Nov 19, 2002 10:17 AM LIFETIME NON-SMO[facility]ER [facility] Advance Directives: All historical and current Section Date Range: From patient's date of to the date document was created. This section includes ALL of a patient's completed or amended VA Advance and Rescinded Directives. The entries below indicate that a directive exists for the patient, but an actual copy is not included with this document. The data comes from all [place] facilities. Date Advance Directives Provider Source Jul 31, 2020 ADVANCE DIRECTIVE NATHANIEL SPARKS T [facility] Oct 16, 2003 ADVANCE DIRECTIVE JESUS CROWLEY BENIGNO T [facility] Radiology Reports: +/- 30 days [...] the Encounter. The data comes from all [place] treatment facilities. Date/Time Radiology Report Provider Source Apr 08, 2020 11:00 AM ULTRASOUND NECK (THYROID,HEAD,SOFT TIS KP): [facility] [id number] -1935 [facility] Exm Date: APR 08, 2020@11:00 Req Phys: CINTHIA GRAHAM Loc : LIT PACT F (Req'g Loc) Img Loc : ULTRASOUND (OOS) Service : Unknown (Case [id number] COMPLETE) ULTRASO UND NECK (THYROID,HEAD,SOF(US Detailed) CPT:28731 Reason for Study: reevaluate thyroid nodule Clinical History: 1. bilateral thyroid nodules largest in t he mid to lower pole of the right gland measuring up to 4.5 cm in size now casuing pain with swallowing. pt has ENT evaluation in March - please c oordinate with ENT visit pt needs shoulder xray as well. susannah mercerángela dinate with this study of possible Report Status: Verified Da te Reported: APR 08, 2020 Da te Verified: APR 08, 2020 Director Of Partner Marketing E-Sig:/ES/JACKSON WINTER Report: Ultrasound -- thyroid: The [...] Primary Interpreting Staff: JACKSON WINTER, RADIOLOGY ATTENDING (Director Of Partner Marketing ) /GONZALO Apr 08, 2020 10:41 AM HIP 2 VIEWS (ROUTINE) INCL PELVIS: [facility] [id number] 1935 M [facility] Exm Date: APR 08, 2020@10:41 Req Phys: GLADYSCINTHIA Erica Loc : LIT PACT F (Req'g Loc) Img Loc : XRAY (OOS) Service : Unknown (Case [id number] COMPLETE) HIP 2 V IEWS (ROUTINE) INCL PELVIS(RAD Detailed) CPT:50699 Reason for Study: evaluate for DJD or fx Clinical History: 83 yo male with h/o remote fall on right h ip now with intgermitent buttock numbness has ENT appt Mar please coordinate with this Report Status: Verified Da te Reported: APR 08, 2020 Da te Verified: APR 08, 2020 Director Of Partner Marketing E-Sig:/ES/JACKSON WINTER Report: HIP 2 VIEWS (ROUTINE) [...] Primary Interpreting Staff: JACKSON WINTER, RADIOLOGY ATTENDING (Director Of Partner Marketing ) Primary Interpreting Resident: STELLA GARCIA, Resident Physician /TPK Apr 08, 2020 10:40 AM SHOULDER (ORTHO) 4 VIEWS: JACKSON WINTER [facility] ASAD MARTINEZ [id number] -1935 M [facility] Exm Date: APR 08, 2020@10:40 Req Phys: CINTHIA GRAHAM Loc : LIT PACT F (Req'g Loc) Img Loc : XRAY (OOS) Service : Unknown (Case [id number] COMPLETE) SHOULDE R (ORTHO) 4 VIEWS (RAD Detailed) CPT:14269 Proc Modifiers : RIGHT Reason for Study: [...] 2020 Da te Verified: APR 08, 2020 Director Of Partner Marketing E-Sig:/ES/JACKSON WINTER Report: SHOULDER (ORTHO) 4 VIEWS [...] Primary Interpreting Staff: JACKSON WINTER, RADIOLOGY ATTENDING (Director Of Partner Marketing ) Primary Interpreting Resident: STELLA GARCIA, Resident Physician /TPK Encounter Notes: All associated encounter notes This section contains the clinical notes associated to the Encounter. Date/Time Encounter Note(s) Provider Source Apr 10, 2020 03:32 PM LABORATORY NOTE: BENITO SALVADOR [facility] LOCAL TITLE: APEX PATIENT LAB RESULTS JEANINE ER STANDARD TITLE: LABORATORY NOTE DATE OF NOTE: APR 10, 2020@15:32 ENTRY DATE: APR 10, 2020@15:32:33 AUTHOR: BENITO SALVADOR EXP COSIGNER: URGENCY: STATUS: COMPLETED APEX PATIENT LAB RESULTS LETTER Has ADDENDA [facility]MENT OF [facility] [address] [place] [address] Phone: APR 10, 2020 Jackie MARTINEZ [address] [place] [address] Dear Mr. Martinez: We have received the results of your recent test s. Overall, the thyroid nodules are stable. The xray of the hip showed d egenerative changes but no acute pathology. The xray of the shoulder showed no complications of orthosis. See below for details of results. Plea se call the clinic if you have any questions. A.ULTRASOUND NECK (THYROID,HEAD,SOFT TISSUE) Exm Date: APR 08, 2020@11:00 Req Phys: CINTHIA GRAHAM Impression: 1. Multinodular goiter. The enlarged righ t lobe of the thyroid containing multiple nodules -- largest peg suring 4.5 cm. No significant interval change as compared wi th the previous 05/15/2018 scan. 2. 0.7 cm mixed cystic solid nodule of the left lobe. Change in appearance is thought to be related to deg eneration of a portion of the adenoma. B. HIP 2 VIEWS (ROUTINE) INCL PELVIS Exm Date: APR 08, 2020@10:41 Req Phys: CINTHIA GRAHAM Impression: 1. No acute injury. 2. 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 C. SHOULDER (ORTHO) 4 VIEWS Exm Date: APR 08, 2020@10:40 Req Phys: CINTHIA GRAHAM Impression: 1. Plate and screw fixation of the proxim al/mid humeral shaft, partially visualized and without gross com plication. 2. Subjectively osteopenic appearance of the bones without significant shoulder joint osteoarthropath y. Sincerely, /es/ BENITO P VO D.O. Staff Physician. /es/ BENITO P VO D.O. Signed: 04/10/2020 15:37 04/10/2020 ADDENDUM STATUS: COMPLETED Pls send letter. TY /domonique/ BENITO P VO D.O. Signed: 04/10/2020 15:37 Receipt Acknowledged By: 04/14/2020 08:15 /domonique/ SRIDHAR KING [facility] Worker Mar 28, 2020 10:51 AM PRIMARY CARE NOTE: CINTHIA GRAHAM [facility] LOCAL TITLE: Primary Care Clinic Note STANDARD TITLE: PRIMARY CARE NOTE DATE OF NOTE: MAR 28, 2020@10:51 ENTRY DATE: MAR 28, 2020@10:52:02 AUTHOR: CINTHIA GRAHAM EXP COSIGNER: URGENCY: STATUS: COMPLETED Primary Care Clinic Note Has ADDENDA PATIENT: Asad Martinez Age: 84 : 1935 Chief Complaint: f/u odynophagia HPI: 84 yo male presents for f/u for thyroid nodule he contiues to have concerns for: 1. right shoulder pain 2. pain in th eleft side of his throat when swal lowing 3. right buttock falling asleep when siting on h milka surface A review of the record indic ates that he has xrays, ultrasound and f/u ENT visit all scheduled for this. I blandon ve requested all to be done in coordination with ENT visit on 08 April. REVIEW OF SYSTEMS Other than complaints listed above, a 10 point r eview of systems is negative Active problems - Computerized Problem List is t he source for the followin. Colonic Polyps 2. Arthritis/DJD 3. Benign prostatic hyperplasia (SNOMED CT 2665 16728) 4. Contact dermatitis and other eczema 5. Actinic Keratosis 6. Seborrheic Keratosis 7. Health Maintenance 8. Hyperlipidemia (SNOMED CT 37113701) 9. Headache 10. Neck pain (SNOMED CT 93344734) 11. SNHL - Sensorineural hearing loss (SNOMED CT 81008740) 12. HLD - Hyperlipidemia (SNOMED CT 85214124) Active Outpatient Medications (excluding Supplie s): Active Outpatient Medications Status 1) SIMVASTATIN 40MG TAB TAKE ONE TABLET BY KIRK TH EVERY ACTIVE EVENING TO LOWER CHOLESTEROL (TAKE WHOLE TABLET) 2) TAMSULOSIN HCL 0.4MG CAP TAKE TWO CAPSULES BY MOUTH ACTIVE EVERY DAY 30 MINUTES AFTER THE SAME MEALT PABLO EACH DAY FOR PROSTATE/URINARY SYMPTOMS. 3) TRIAMCINOLONE ACETONIDE 0.1% CREAM APPLY TH IN FILM ACTIVE TOPICALLY TWICE DAILY NEEDED FOR ITCHI NG/RASH Active Non-VA Medications Status 1) Non-VA ASPIRIN 81MG CHEW TAB 81MG MOUTH ASUNCION RY DAY ACTIVE 2) Non-VA MULTIVITAMIN/MIN, THERAPEUTIC UD TAB MOUTH ACTIVE EVERY DAY 5 Total Medications Allergies: NKA Physical Exam Measurement DT BP PULSE WEIGHT POx LB(KG)[BMI ] (L/MIN)(%) 03/28/2020 10:19 118/64 62 204.2(92.6 2)[29*] 95 Measurement DT PAIN 03/28/2020 10:19 0 GEN: no acute distress PSYCH: AAO x 3 NECK: Supple, (-) tenderness , (-) carotid bruit, (-) lymphadenopathy, (+) nodule right lower aspect of neck LUNGS: breath sounds present and clear throughou t HEART: Regular rate and rhythm, (-) murmur, (-) gallop THORAX: (-) CVA tenderness ABDOMEN: Soft, (-) tendernes s, (-) distension, (-) guarding, (-) rebound, bowel sounds present and normal EXT: (-) edema Assessment and Plan 1. right shoulder pain a. 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 required surgical repair of rotator cuf f and 2. has retained hardware in arm b. seen by local orthopedics within last 10 m onths and prescribed PT 1. (+) FROM with pain c. (+) TTP over lower aspect of AC joint 1. pain is 2-3/10 d. xray right shoulder not yest complete 1. pt advised that hardware may alsways ca use some chronic discomfort, especially in cold weather 2. Thyroid nodule a. US thyroid (2018) = 4.5cm nodule right 1. Bx 2018 = benign 2. pt declined treatment in past b. now having odynophagia, especially with sa lt and sweet 3. HLD a. LDL = 97 (Sep 2018) 1. acceptable b. simvastatin 80mg qpm 4. resting tremor right hand a. this appears to have improved actually 1. pt states blandon was doing quite a bit of a rm exercises b. TSH = 0.71 (Sep 2018) 5. SNHL a. requires bilat hearing aids 6. urinary frequency a. (+) nocturia 2-3 x night with post void dr wilson b. tamsulosin 0.4mg qd does not seem to be ef fective 1. increase to tamsulosin 0.8mg qd 7. Right buttocks numbness a. s/p fall on right hip 2 yrs prior b. now with intermtent right buttock numbness c. xray not yet done f/u 6 months I spent more than 50% of thi s encounter counseling the pt on the medical health issues listed above Outpt. Medication Reconciliation: Discrepancy Found - Med Rec Completed. DISCREPANCIES FOUND. The patient's medicat ion list/medication history to include Local Active VA Prescip tions, Remote Active VA Prescriptions, Non-VA Medications, Recentl y VA Prescriptions (90-180 days), Recently Discontinued VA Pr escriptions (90-180 days), and Pending Medication Orders where releva nt (e.g., patient is seen by multiple providers in the same day) was compared with CPRS and reviewed/discussed with the patient/caregi carmen and reconciled for any discrepancies. A copy of this medication l ist was provided to the patient/caregiver. The patient/caregiver w as instructed to update this list, discard old lists, and take thi s to their next appointment, whether with a VA or non-VA p rovider. Any changes in medications and any medications discontinu ed are documented in this note. * Discrepancies were identified, and were addressed, and discussed with the patient/caregiver at this encounter and documented in the chart (this note). * All changes in medications, including a ll non-VA/Herbals/OTC medications were entered into CPRS, and documented in this note. * If there were any medications the patie nt should no longer take, they were discontinued. The discontinue d medications are documented in this note. * The patient/caregiver was instructed to update this list, discard old lists, and take this list to their next appointment, whether with a VA or non-VA provider. Discrepancy and action taken: medication r evmarywed and updated /domonique/ CINTHIA GRAHAM Physician Signed: 03/28/2020 11:20 03/28/2020 ADDENDUM STATUS: COMPLETED Zoster Vaccine (Shingrix): The patient received recombinant zoster vaccine (RZV) 0.5 ml IM in Left deltoid. Licensed Home Inspector: [place] Lot#s and Expiration Date: [id number] exp adj [id number] exp 08/14/21 Administered by protocol/policy Complications: None /es/ CARMEN ROSARIO RN Signed: 04/01/2020 14:28 Mar 28, 2020 10:20 AM PRIMARY CARE ANNUAL EVALUATION NOTE[facility] TITLE: Preventive Health Annual Review STANDARD TITLE: PRIMARY CARE ANNUAL EVALUATION N OTE DATE OF NOTE: MAR 28, 2020@10:20 ENTRY DATE: MAR 28, 2020@10:20:16 AUTHOR: ERLIN CORCORAN EXP COSIGNER: URGENCY: STATUS: COMPLETED Falls & Incontinence Screen: Falls Screen: 4. No falls within the past year. Incontinence Screen No incontinence. /domonique/ ERLIN CORCORAN [facility] [employer] Specialist Signed: 03/28/2020 10:20
--- OUTSIDE RECORDS SUMMARY | 2020-08-20 00:59 | XMS_ITS | Encounter Summary ---
:[address] [facility] Address [address] [place] [id number] Care Team Providers Name Role Phone CINTHIA [...] Amaro AARP MEDIGAP PLANC Oct 27, PLANC [id number] [phone] YUKI GREGORY PATIENT PLAN C 2000 221 9 ERT MEDICARE MEDICARE PART Oct 27, PART A [id number] [id number] YUKI GREGORY PATIENT (WNR) (M) A 2000 UA10 1 ERT MEDICARE MEDICARE PART Oct 27, PART B [id number] [phone] YUKI GREGORY PATIENT (WNR) (M) B 2000 UA10 1 ERT Selected Encounter This section includes the information on record at [place] for the Encounter. Date/Time Encounter Type Encounter Reason Provider Source Description Oct 10, 2019 11:30 Outpatient TELEPHONE TRIAGE JOHN AGGARWAL AM Encounter IHE Encounter Template Text not used by [...] appointments. The [facility] comes [facility] Appointment Date/Time Appointment Type Appointment Facili ty Name Nov 07, 2019 10:00 AM AMBULATORY - MEDICINE [facility] Feb 05, 2020 08:30 AM AMBULATORY - NONE [facility] Mar 28, 2020 10:30 AM AMBULATORY - MEDICINE [facility] Apr 08, 2020 11:00 AM AMBULATORY - NONE [facility] Apr 08, 2020 01:30 PM AMBULATORY - SURGERY [facility] Lab Results: +/- 30 days of the [...] Interpretation Reference Range Comment Nov 07, 2019 [place] GLYCOHEMOGLOBIN (A1C Specimen Ty pe: BLOOD 11:11 AM [facility] ONLY) Comment: Refere nce Ranges: 4.0 - 5.6 normal 5.7 - 6.4 pre-diabetes >=6.5% diabetic range. If patient has Not Been diagnosed see [place]-D[place] Diabetes Guidelines for more guidance. http://www.healthquality.va.gov/stanton choe/TIFFANIE/adrian mccloud/ Target A1C values should be individualized. [...] Nov 07, 2019 11:00 AM Reporting Lab: [facility] [address] [facility] [id number] Performing Lab: [facility] [address] [facility] [address] HEMOGLOBIN A1C 5.9 % H 4.0-5.6 Advance [...] ADVANCE DIRECTIVE NATHANIEL SPARKS ROSALBA [facility]AE[facility] T [facility] Oct 16, 2003 ADVANCE DIRECTIVE JESUS CROWLEY ROSALBA [facility] Encounter Notes: All associated encounter notes This section contains the clinical notes associated to the Encounter. Date/Time Encounter Note(s) Provider Source Oct 10, 2019 11:39 AM NONVA NOTE: ECTOR AGGARWALT LOCAL TITLE: COMMUNITY CARE EMERGENCY TREATMENT [facility] STANDARD TITLE: NONVA NOTE DATE OF NOTE: OCT 10, 2019@11:39 ENTRY DATE: OCT 10, 2019@11:39:25 AUTHOR: ECTOR AGGARWAL EXP COSIGNER: URGENCY: STATUS: COMPLETED COMMUNITY CARE EMERGENCY TREATMENT Has AD [facility] - INTAKE SECTION: Facility: Hospital Notification Date: Sep@11 :39 Method of Contact: Phone Call-[facility] Point of Contact Name: Point of Contact Dept: Point of Contact Phone #: Point of Contact Fax #: [facility] Hospital Name: Hospital: [facility] Address: [facility] [place]: [facility] State: [place] Zip Code: Phone : Date Presenting to the Facility: Chief Complaint: foot pain, redness, swelli ng Patient Admitted? Unknown per [facility] System recommendation /es/ ECTOR AGGARWAL Staff Nurse Signed: 10/10/2019 11:41 02/01/2020 ADDENDUM STATUS: COMPLETED [facility] CARE ELIGIBILITY WITH DETERMINATION Date/Time of Review: Jan@11:27 Service Connected Disabilities: DS - Disabilities Eligibility: NSC VERIFIED [facility] Health Care Eligibility: Were services rendered in your local [place] area? Care was rendered within local geographical ar ea. Administrative Review Was the VA timely notified within 72 hours o f treatment? No This episode of care does not meet 38 CFR 17 .4020(c). Communicate decision to Community Provider a nd send the Emergency Care Payment Consideration letter. Continue to cl inically follow the during inpatient stay until transfer red, discharge or refuses. The is not eligible for 38 CFR 17.40 20(c) payment authority. No 72 hour notification from the time the patien yoli presented to the community care provider for treatment. Emergency Care Payment Consideration let ter completed and sent to [facility] billing office. Letter scanned into the patient's chart as an admin note. /domonique/ SAMIA HEATH Electrical LoggerChemical Blender Signed: 02/01/2020 11:28 Oct 10, 2019 11:30 AM TRIAGE NOTE: ECTOR AGGARWAL [place] LOCAL TITLE: Telephone Triage Note [facility] STANDARD TITLE: TRIAGE NOTE DATE OF NOTE: OCT 10, 2019@11:30:47 ENTRY DATE: OCT 10, 2019@11:38:37 AUTHOR: ECTOR AGGARWAL EXP COSIGNER: URGENCY: STATUS: COMPLETED Type of call: SYMPTOM. Caller Response: *OTHER The patient, ASAD GREGORY ([id number]) Ph one: [phone] called the call center. Comments: patients right foot is red, warm and swollen, an d pain, would like to be seen Evaluation/Management Code: HC PRO PHONE CALL 5- 10 MIN ([phone]). Original call started at: OCT 10, 2019 @ 11:29 ( Call was suspended) - ANA ROSA [place]OD OCT 10, 2019@11:29:29 - OCT 10, 2019@11:30:15 Ending at: 10/10/2019 @ 11:37:58 AM Length: 7 minutes. (Call was suspended. 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.) Author: ECTOR AGGARWAL Caller Area: * [place] Chief Complaint: Foot Pain Triage Note Phone Triage Wed Oct 10 2019 11:33:28 GMT-0500 ([facility] milka Time) Demographics 83 y/o Male Results CC: Foot Pain Nurse Recommendation: Now GRACIEP Suggestion: Now Nurse Recommended Follow-up Location: Emerge [facility]cy [facility] Suggested Follow-up Location: [facility] Values and Measures Pain scale: 8 Duration of CC: 5 Days Positive Responses HPI: foot pain, severe HPI: numbness, foot or leg, sudden onset Negative Responses Denies: HPI: foot injury, within past 2 days Denies: HPI: heel pain, moderate to severe Denies: HPI: heel pain, severe Denies: HPI: leg pain, localized to ankle Denies: HPI: one leg is cool to touch Denies: HPI: pale or nettles discoloration in o ne leg Denies: HPI: toe pain, localized to toenail or periungual skin Denies: HPI: toe pallor Fleming Education Verbal Education Provided: Based on your responses, you should be t reated in the emergency room. Take action: You need to see a doctor now or you r condition could worsen. A prolonged loss of blood flow to a n limb can cause irreversible damage. Nurse Notes: Spoke with with Fleming in back ground. They will go to local ER as recommended by [facility] in [place], [place] Class Code: Counseling, unspecified. Contact Patient's Email Address: /es/ ECTOR AGGARWAL Staff Nurse Signed: 10/10/2019 11:38 Receipt Acknowledged By: 10/10/2019 18:29 /es/ CINTHIA GRAHAM Physician 10/10/2019 11:54 /es/ CARMEN ROSARIO RN 10/10/2019 11:55 /es/ ANGELITA WHITLEY Registered Nurse 10/10/2019 11:46 /es/ SUNNI PEREZ REGISTERED NURSE 02/01/2020 11:26 /es/ SAMIA HEATH Financial Managemen t Specialist 10/23/2019 13:16 /es/ MARY SANCHEZN RN
--- OUTSIDE RECORDS SUMMARY | 2020-08-20 00:59 | XMS_ITS | Encounter Summary ---
:1935 Author Organization Department [facility] Address [address] [place] [address] Care Team Providers Name Role Phone CINTHIA [...] Amaro AARP MEDIGAP PLANC Oct 27, PLANC [id number] [id number] YUKI GREGORY PATIENT PLAN C 2000 221 9 ERT MEDICARE MEDICARE PART Oct 27, PART A [id number] [id number] YUKI GREGORY PATIENT (WNR) (M) A 2000 UA10 1 ERT MEDICARE MEDICARE PART Oct 27, PART B [id number] [phone] YUKI GREGORY PATIENT (WNR) (M) B 2000 UA10 1 ERT Selected Encounter This section includes the information on record at [place] for the Encounter. Date/Time Encounter Type Encounter Description Reason Provider Source Oct 16, 2019 02:32 Outpatient Encounter TELEPHONE TRIAGE PM IHE Encounter Template Text not used by ME Plan of Treatment: Future Appointments (+ 6 months) and Future Tests (+/- 45 days) The Plan of Treatment section includes future care activities for the patient from all [place] treatment facilities. This section includes future appointments and future orders which are active, pending or scheduled.Future Appointments This section includes appointments that were scheduled to occur 6 months from the date of the Encounter, up to a maximum of 20 appointments. The [facility] [place] [facility] Appointment Date/Time Appointment Type Appointment Facili ty Name Nov 07, 2019 10:00 AM AMBULATORY - MEDICINE [facility] Feb 05, 2020 08:30 AM AMBULATORY - NONE [facility] Mar 28, 2020 10:30 AM AMBULATORY - MEDICINE [facility] Apr 08, 2020 11:00 AM AMBULATORY - NONE [facility] Apr 08, 2020 01:30 PM [facility] Lab Results: +/- 30 days of the encounter This section includes the Chemistry and Hematology Lab Results on record with [place] for the patient. Radiology Reports and Pathology Reports are provided separately, in subsequent sections.Lab Results This section contains the Chemistry/Hematology Results that were resulted 30 days before or 30 days after the date of the Encounter. Date/Time Source Result Type Result - Unit Interpretation Reference Range Comment Nov 07, 2019 [place] GLYCOHEMOGLOBIN (A1C Specimen Ty pe: BLOOD 11:11 AM [facility] ONLY) Comment: Refere nce Ranges: 4.0 - 5.6 normal 5.7 - 6.4 pre-diabetes >=6.5% diabetic range. If patient has Not Been diagnosed see [place]-DOD Diabetes Guidelines for more guidance. http://www.healthquality.va.gov/stanton choe/TIFFANIE/adrian [...] Nov 07, 2019 11:00 AM Reporting Lab: [facility] [address] [facility] [address] Performing Lab: [facility] [address] [facility] [place] [address] HEMOGLOBIN A1C 5.9 % H 4.0-5.6 Advance [...] this document. The data comes from all [place] facilities. Date Advance Directives Provider Source Jul 31, 2020 ADVANCE DIRECTIVE NATHANIEL SPARKS [facility]ENIGNO T [facility] Oct 16, 2003 ADVANCE DIRECTIVE JESUS CROWLEY BENIGNO T [facility] Encounter Notes: All associated encounter notes This section contains the clinical notes associated to the Encounter. Date/Time Encounter Note(s) Provider Source Oct 16, 2019 02:32 PM PRIMARY CARE MEDICATION MGT NOTE: AUGUST DIXON [facility] LOCAL TITLE: Medication Note STANDARD TITLE: PRIMARY CARE MEDICATION MGT NOTE DATE OF NOTE: OCT 16, 2019@14:32 ENTRY DATE: OCT 16, 2019@14:32:35 AUTHOR: ROBERTA DIXON EXP COSIGNER: URGENCY: STATUS: COMPLETED Patient is calling for medication refill or jenn wal: Medication name: SIMVASTATIN 80MG TAB TAKE ONE-HALF TABLET BY KIRK TH AT BEDTIME TO LOWER CHOLESTEROL - Active Non-VA Medications Status [X]Med [X]Med Refill How many days left? 3 Do you need any other medications renewed? [ X ] [facility] [ ] Non-VA pharmacy for REGULAR SUPPLY [ ] Non-VA pharmacy for SHORT SUPPLY only What Pharmacy do you use? Pharmacy phone number? Pharmacy Fax number? FUTURE APPOINTMENTS Future Appointments - Oct@10:00 LIT PACT F /domonique/ ROBERTA DIXON AMSA Signed: 10/16/2019 14:33 Receipt Acknowledged By: 10/16/2019 15:43 /es/ SUNNI PEREZ REGISTERED NURSE 10/17/2019 15:54 /es/ CARMEN ROSARIO RN 10/16/2019 14:51 /es/ ANGELITA WHITLEY Registered Nurse 10/16/2019 20:16 /es/ CINTHIA GRAHAM Physician
--- OUTSIDE RECORDS SUMMARY | 2020-08-20 00:59 | XMS_ITS ---
:1935 Author Organization [facility] Address [address] [place] [address] Care Team Providers Name Role Phone CINTHIA [...] Amaro AARP MEDIGAP PLANC Oct 27, PLANC [id number] [id number] YUKI MARTINEZ PATIENT PLAN C 2000 221 9 ERT MEDICARE MEDICARE PART Oct 27, PART A [id number] [phone] YUKI MARTINEZ PATIENT (WNR) (M) A 2000 UA10 1 ERT MEDICARE MEDICARE PART Oct 27, PART B [id number] [phone] YUKI MARTINEZ PATIENT (WNR) (M) B 2000 UA10 1 ERT Selected Encounter This section includes the information on record at CT for the Encounter. Date/Time Encounter Type Encounter Reason Provider Source Description Nov 07, 2019 OFFICE OR OTHER PRIMARY ICD-10-CM WILLIAM GRAHAM 10:00 AM OUTPATIENT VISIT CARE/MEDICINE M25.511 Pain L FOR THE EVALUATION in right AND MANAGEMENT OF shoulder with AN ESTABLISHED Provider PATIENT, WHICH Comments: Pain REQUIRES AT LEAST in right 2 OF THESE 3 WONG Shoulder COMPONENTS: A DETAILED HISTORY; A DETAILED EXAMINATION; MEDICAL DECISION MAKING OF MODERATE COMPLEXITY. COUNSELING AND/OR COORDINATION OF CARE WITH OTHER PHYSICIANS, OTHER QUALIFIED HEALTH SEWER INSPECTOR, OR AGENCIES ARE PROVIDED CONSISTENT WITH THE NATURE OF THE PROBLEM(S) AND THE PATIENT'S AND/OR FAMILY'S NEEDS. USUALLY, THE PRESENTING PROBLEM(S) ARE OF MODERATE TO HIGH SEVERITY. TYPICALLY, 25 MINUTES ARE SPENT [id number] WITH THE PATIENT AND/OR FAMILY. IHE Encounter Template Text not used by [facility] Assessments - Encounter Diagnoses This section includes the primary and secondary diagnoses documented forthe Encounter. Date/Time Primary/Secondary Diagnosis Name Provider Source Diagnosis Nov 07, 2019 PRIMARY Pain in right [facility] 11[facility]07 AM shoulder [facility] Nov 07, 2019 PRIMARY Pain in right [facility] 11[facility] AM shoulder [facility] Nov 07, 2019 SECONDARY Cervicalgia [facility] 11:07 AM [facility] Nov 07, 2019 SECONDARY Cervicalgia [facility] 11:07 AM [facility] Nov 07, 2019 SECONDARY Encounter for [facility] 11:07 AM immunization [facility] Nov 07, 2019 SECONDARY [facility] Nov 07, 2019 SECONDARY Hyperlipidemia, 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:07 AM thyroid nodule [facility] Nov 07, 2019 SECONDARY Pain in right hip [facility] 11:07 AM [facility] Nov 07, 2019 SECONDARY Pain in right hip [facility] 11:07 AM [facility] Nov 07, 2019 SECONDARY Paresthesia of skin [facility] 11:07 AM [facility] Nov 07, 2019 SECONDARY Sensorineural [facility] 11:07 AM hearing loss, [facility] bilateral Nov 07, 2019 SECONDARY Sensorineural [facility] 11:07 AM hearing loss, [facility] bilateral Plan of Treatment: Future Appointments (+ 6 months) and Future Tests (+/- 45 days) The Plan of Treatment section includes future care activities for the patient from all CT treatment facilities. This section includes future appointments and future orders which are active, pending or scheduled.Future Appointments This section includes appointments that were scheduled to occur 6 months from the date of the Encounter, up to a maximum of 20 appointments. [facility] Appointment Date/Time Appointment Type Appointment Facili ty Name Feb 05, 2020 08:30 AM AMBULATORY - NONE [facility] Mar 28, 2020 10:30 AM AMBULATORY - MEDICINE [facility] Apr 08, 2020 11:00 AM AMBULATORY - NONE [facility] Apr 08, 2020 01:30 PM AMBULATORY - SURGERY [facility] Lab Results: +/- 30 days of the encounter This section includes the Chemistry and Hematology Lab Results on record with CT for the patient. Radiology Reports and Pathology Reports are provided separately, in subsequent sections.Lab Results This section contains the Chemistry/Hematology Results that were resulted 30 days before or 30 days after the date of the Encounter. Date/Time Source Result Type Result - Unit Interpretation Reference Range Comment Nov 07, 2019 [facility] GLYCOHEMOGLOBIN (A1C Specimen Ty pe: BLOOD 11:11 AM [facility] ONLY) Comment: Refere nce Ranges: 4.0 - 5.6 normal 5.7 - 6.4 pre-diabetes >=6.5% diabetic range. If patient has Not Been diagnosed see CT-DOD Diabetes Guidelines for more guidance. http://www.healthquality.va.gov/g uidelines/CD/adrian mccloud/ Target A1C values should be individualized. [...] 07, 2019 11:00 AM Reporting Lab: [facility] [address] [facility] [place] [address] Performing Lab: [facility]BA BOBBY [facility] [address] [facility] [address] HEMOGLOBIN A1C 5.9 % H 4.0-5.6 Immunizations: All administered on the encounter date This section contains immunizations associated to the Encounter. Immunization Series Date Issued Reaction Comments ZOSTER RECOMBINANT 1 Nov 07, 2019 Social History: Smoking Status (Most current) and Tobacco Use (All prior to encounter date) This section includes the most current, and the historical, smoking and tobacco-related health factors from the CT facility where the Encounter took place.Current Smoking Status This section includes the most current smoking, or tobacco-related health factor, from the CT facility where the Encounter took place. Date/Time Current Smoking Status Comment Facility Apr 26, 2019 10:[address]-TOBACCO NEVER USED [facility] Tobacco Use History This section includes a history of the smoking, or tobacco-related health factors, that were collected on or before the date of the Encounter. The data comes from the CT facility where the Encounter took place. Date/Time Smoking Status/Tobacco Use Comment [facility] Apr 27, 2018 11:[address] AM [address]-TOBACCO NEVER USED [facility] Oct 07, 2016 08:36 AM LIFETIME NON-TOBACCO USER [facility] Sep 08, 2015 01:09 PM LIFETIME NON-TOBACCO USER [facility] Oct 21, 2004 10:03 AM LIFETIME NON-SMOKER [facility] Oct 28, 2003 03:35 PM LIFETIME NON-SMOKER [facility] Nov 19, 2002 10:17 AM LIFETIME NON-SMOKER [facility] Advance Directives: All historical and current Section Date Range: From patient's date of to the date document was created. This section includes ALL of a patient's completed or amended CT Advance and Rescinded Directives. The entries below indicate that a directive exists for the patient, but an actual copy is not included with this document. The data comes from all CT facilities. Date Advance Directives Provider Source Jul 31, 2020 ADVANCE DIRECTIVE NATHANIEL SPARKS CELESTINO BENIGNO T [facility] Oct 16, 2003 ADVANCE DIRECTIVE JESUS CROWLEY BENIGNO T [facility] Encounter Notes: All associated encounter notes This section contains the clinical notes associated to the Encounter. Date/Time Encounter Note(s) Provider Source Nov 11, 2019 02:38 PM LETTERS: CINTHIA GRAHAM [facility] LOCAL TITLE: Letter to Patient - [place] STANDARD TITLE: LETTERS DATE OF NOTE: NOV 11, 2019@14:38 ENTRY DATE: NOV 11, 2019@14:38:20 AUTHOR: CINTHIA GRAHAM COSIGNER: URGENCY: STATUS: COMPLETED [facility] [address] [place] [address] NOV 11, 2019 MR. ASAD MARTINEZ [address] [place] [address] Dear Mr. Martinez, Attached are your lab test results. Sugar (A1c) is a little better, but could still use a little work. Collection time: Nov 07, 2019@11:11 Test Name Result Units Range --------- ------ ----- ----- HEMOGLOBIN A1C 5.9H % 4.0 - 5.6 Please don't hesitate to call if you have any qu estions or concerns, . Sincerely, CINTHIA GRAHAM [facility] Nov 07, 2019 10:23 AM PRIMARY CARE NOTE: CINTHIA GRAHAM [facility] LOCAL TITLE: Primary Care Clinic Note STANDARD TITLE: PRIMARY CARE NOTE DATE OF NOTE: NOV 07, 2019@10:23 ENTRY DATE: NOV 07, 2019@10:24 AUTHOR: CINTHIA GRAHAM COSIGNER: URGENCY: STATUS: COMPLETED PATIENT: Asad Martinez Age: 83 : 1935 Chief Complaint: periodic assessment HPI: 83 yo male presents for periodic assessment . He has several issues: 1. right shoulder pain 2. pian in th eleft side of his throat when swal lowing 3. right buttock falling asleep when siting on h milka surface REVIEW OF SYSTEMS Other than complaints listed above, a 10 point r eview of systems is negative Active problems - Computerized Problem List is t he source for the followin. Colonic Polyps 2. Arthritis/DJD 3. Benign prostatic hyperplasia (SNOMED CT 2665 29029) 4. Contact dermatitis and other eczema 5. Actinic Keratosis 6. Seborrheic Keratosis 7. Health Maintenance 8. Hyperlipidemia (SNOMED CT 68402791) 9. Headache 10. Neck pain (SNOMED CT 03312546) 11. Hearing loss 12. HLD - Hyperlipidemia (SNOMED CT 93499935) Active Outpatient Medications (excluding Supplie s): Active Outpatient Medications Status 1) SIMVASTATIN 40MG TAB TAKE ONE TABLET BY KIRK TH EVERY ACTIVE EVENING TO LOWER CHOLESTEROL 2) TAMSULOSIN HCL 0.4MG CAP TAKE ONE CAPSULE B Y MOUTH ACTIVE EVERY DAY 30 MINUTES AFTER [...] BP PULSE WEIGHT POx LB(KG)[BMI ] (L/MIN)(%) 11/07/2019 10:03 117/66 59 209.4(94.9 8)[29*] 95 Measurement DT PAIN 11/07/2019 10:03 3 GEN: no acute distress PSYCH: AAO x 3 HEENT: normal oropharynx NECK: Supple, (+) tenderness over right upper as pect of thyroid, I do not apprecciate the nodule on palpation, (-) carotid bruit, (-) lymphadenopathy LUNGS: breath sounds present and clear throughou t HEART: Regular rate and rhythm, (-) murmur, (-) gallop THORAX: (-) CVA tenderness EXT: (-) edema Assessment and Plan 1. right shoulder pain a. 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 required surgical repair of rotator cuf f and 2. has retained hardware in arm b. seen by local orthopedics within last 6 mo nths and prescribed PT 1. (+) FROM without pain c. (+) TTP over lower aspect of AC joint 1. pain is 2-3/10 d. will get xray right shoulder 1. pt advised that hardware may alsways [...] with intermtent right buttock numbness c. xray f/u 3 months I spent more than 50% of thi s encounter counseling the pt on the medical health issues listed above Tobacco Use Screening: The patient has never used tobacco. Outpt. Medication Reconciliation: Discrepancy Found - Med [...] appointment, whether with a VA or non-VA porfirio campbell. Any changes in medications and any medications [...] provider. Discrepancy and action taken: medication r eviewed and updated /domonique/ CINTHIA GRAHAM Physician Signed: 11/07/2019 11:07 Nov 07, 2019 10:08 AM PRIMARY CARE ANNUAL EVALUATION NOTE: ERLIN GAN [facility] LOCAL TITLE: Preventive Health Annual Review STANDARD TITLE: PRIMARY CARE ANNUAL EVALUATION N OTE DATE OF NOTE: NOV 07, 2019@10:08 ENTRY DATE: NOV 07, 2019@10:08:04 AUTHOR: ERLIN CORCORAN EXP COSIGNER: URGENCY: STATUS: COMPLETED Preventive Health Annual Review Has ADDEN DA Advance Directive Screen: Patient has an Advance Directive on file a t [facility]. The patient received education about advance directive s as well as written notification of his/her rights. Patient has an up to date Advance Directiv e document on file at this [facility]. No updates are needed at this time. The patient received education about advan ce directives as well as written notification of his/her rights. Alcohol Use Screen (AUDIT-C) & F/U: Alcohol Screen: SCREEN FOR ALCOHOL (AUDIT-C) An alcohol screening test (AUDIT-C) wa s negative (score=0). 1. How often did you have a drink cont aining alcohol in the past year? Never 2. How many drinks containing alcohol did you have on a typical day when you were drinking in the past year? Response not required due to responses to other questions. 3. How often did you have six or more drinks on one occasion in the past year? Response not required due to responses to other questions. Homelessness/Food Insecurity Screen: In the past 2 months, have you been living in stable housing that you own, rent, or stay in as part of a bernice sehold? Yes - Living in stable housing. Are you worried or concerned that in the next 2 months you may NOT have stable housing that you own, rent, or stay in as part of a household? No - Not worried about [facility] In the past three months did you ever run out of food and you were not able to access more food or have the m oney to buy more food? No - No Food shortage Depression Screening: PHQ-2+I9 Depression Screening Score: 0 The score on this administration is 0, which indicates a negative screen on the Depression Scal e over the past two weeks. Suicide Screening Score: 0 The results of this administration ind icates a NEGATIVE primary screen for Risk of Suicide ove r the last 2 weeks. Over the past two weeks, how often have you been bothered by the following problems? 1. Little interest or pleasure in do ing things Not at all 2. Feeling down, depressed, or hopel ess Not at all 3. Thoughts that you would be better off or of hurting yourself in some way Not at all /domonique/ ERLIN CORCORAN Health Finance Mgr Signed: 11/07/2019 10:10 11/07/2019 ADDENDUM STATUS: COMPLETED Zoster Vaccine (Shingrix): The patient received recombinant zoster vaccine (RZV) 0.5 ml IM in Left deltoid. Case Investigator: [employer] Lot#s and Expiration Date: [id number] exp adj [id number] exp 07/20/21 Administered by protocol/policy Complications: None /domonique/ CARMEN ROSARIO RN Signed: 11/07/2019 10:20
--- OUTSIDE RECORDS SUMMARY | 2020-08-20 00:59 | XMS_ITS | Encounter Summary ---
:1935 Author Organization Department [facility] Address [address] [place] [address] Care Team Providers Name Role Phone CINTHIA [...] Amaro AARP MEDIGAP PLANC Oct 27, PLANC [id number] [phone] YUKI GREGORY PATIENT PLAN C 2000 221 9 ERT MEDICARE MEDICARE PART Oct 27, PART A [id number] [id number] YUKI GREGORY PATIENT (WNR) (M) A 2000 UA10 1 ERT MEDICARE MEDICARE PART Oct 27, PART B [id number] [phone] YUKI GREGORY PATIENT (WNR) (M) B 2000 UA10 1 ERT Selected Encounter This section includes the information on record at [facility] for the Encounter. Date/Time Encounter Type Encounter Description Reason Provider Source Feb 05, 2020 12:00 Outpatient Encounter COMMUNITY CARE AM CONSULT IHE Encounter Template Text not used [...] 20 appointments. The data comes from all [place] treatmentfacilities. Appointment Date/Time Appointment Type Appointment Facili ty Name Mar 28, 2020 10:30 AM AMBULATORY - MEDICINE [facility] Apr 08, 2020 11:00 AM AMBULATORY - NONE [facility] Apr 08, 2020 01:30 PM AMBULATORY - SURGERY [facility] Advance Directives: All historical and current Section Date Range: From patient's date of to the date document was created. This section includes ALL of a patient's completed or amended [place] Advance and Rescinded Directives. The entries below indicate that a directive exists for the patient, but an actual copy is not included with this document. The data comes from all [place] facilities. Date Advance Directives Provider Source Jul 31, 2020 ADVANCE DIRECTIVE NATHANIEL SPARKS [facility] Oct 16, 2003 ADVANCE DIRECTIVE CARLINEJESUS [facility] Encounter Notes: All associated encounter notes This section contains the clinical notes associated to the Encounter. Date/Time Encounter Note(s) Provider Source Feb 05, 2020 12:00 AM NONVA CONSULT: RODNEY BLACK [facility] LOCAL TITLE: COMMUNITY CARE CONSULT RESULT NOTE STANDARD TITLE: NONVA CONSULT DATE OF NOTE: FEB 05, 2020 ENTRY DATE: MAR 21, 2020@12:46:43 AUTHOR: RODNEY BLACK EXP COSIGNER: URGENCY: STATUS: COMPLETED [facility] - Scanned Document /domonique/ RODNEY BLACK Specialist Set Up Mechanic [employer] Signed: 03/21/2020 12:46
--- NOTE | 2020-08-20 10:50 | DI.RAD_ITS ---
EXAM: XR HIP RT COMPLETE AP PELVIS INDICATION: sciatica and right hip pain,M54.30,M25.551. COMPARISON: No exams were available for comparison TECHNIQUE: 2D digital imaging was performed. FINDINGS: There are mild degenerative changes of the right hip. No acute fracture or dislocation is seen. The bones are normally mineralized and intact. The soft tissues are unremarkable. IMPRESSION: Mild degenerative changes of the right hip. DATA REPOSITORY: RADIATION DOSE DELIVERED:
== END 2020-08-20 01:13 ==
PROVIDERS: PCP Family Medicine; Visit Provider Physician Assistant
DX: M16.11 Unilateral primary osteoarthritis, right hip (principal); M54.31 Sciatica, right side
CPT/HCPCS: 73502

== ENCOUNTER → 2020-09-04 14:45 | Outpatient (BNVA) | payer MEDICARE, SELFPAY | PROVIDERS: PCP Family Medicine; Referring Provider Family Medicine; Visit Provider Psychiatry & Neurology Neurology | DX: F41.9 Anxiety disorder, unspecified (principal); G47.9 Sleep disorder, unspecified; R55 Syncope and collapse; I10 Essential (primary) hypertension; M25.511 Pain in right shoulder; M79.604 Pain in right leg | CPT/HCPCS: 99215 ==

== ENCOUNTER → 2020-09-11 13:52 | Outpatient (BNVA) | payer MEDICARE, SELFPAY | PROVIDERS: PCP Family Medicine; Referring Provider Family Medicine; Visit Provider Internal Medicine Cardiovascular Disease | DX: R55 Syncope and collapse (principal); F41.9 Anxiety disorder, unspecified | CPT/HCPCS: 99203; 99214 ==

== ENCOUNTER → 2020-10-08 13:48 | Outpatient (BNVA) | payer MEDICARE, SELFPAY | PROVIDERS: PCP Family Medicine; Referring Provider Family Medicine; Visit Provider Psychiatry & Neurology Neurology | DX: F41.9 Anxiety disorder, unspecified (principal); G47.00 Insomnia, unspecified; R55 Syncope and collapse; Z87.820 Personal history of traumatic brain injury; I10 Essential (primary) hypertension; E78.5 Hyperlipidemia, unspecified; E04.2 Nontoxic multinodular goiter | CPT/HCPCS: 99214 ==

== ENCOUNTER 2020-12-23 03:32 | Outpatient (CLI) | payer MEDICARE, SELFPAY ==
[2020-12-23 12:38] LABS: Anion Gap 5.9 mmol/L (3-11); BUN 20 mg/dL (7-18); CO2 31.1 mmol/L (21.0-32.0); CREATININE 1.1 mg/dL (0.70-1.30); Calcium 8.4 mg/dL (8.5-10.1); Calculated LDL 101 mg/dL (<100); Chloride 104 mmol/L (98-107); Cholesterol 180 mg/dL (<200); Glucose 94 mg/dL (74-106); HDL Cholesterol 55 mg/dL (40-60); Potassium 4.2 mmol/L (3.5-5.1); Sodium 141 mmol/L (136-145); Triglyceride 124 mg/dL (<150)
[2020-12-23 12:58] LABS: TSH (W/Ref FT4) 1.65 uIU/mL (0.36-3.74)
== END 2020-12-23 03:33 | disposition home or self-care (01) ==
LOC: LBO 03:32
PROVIDERS: Physician Assistant; PCP Family Medicine; Visit Provider Physician Assistant
DX: E78.5 Hyperlipidemia, unspecified (principal)
CPT/HCPCS: 36415; 80048; 80061; 84443

== ENCOUNTER → 2020-12-29 12:44 | Outpatient (BNVA) | payer MEDICARE, SELFPAY | PROVIDERS: PCP Family Medicine; Referring Provider Family Medicine; Visit Provider Nurse Practitioner Gerontology | DX: R35.0 Frequency of micturition (principal); Z80.42 Family history of malignant neoplasm of prostate; N40.1 Benign prostatic hyperplasia with lower urinary tract symptoms; N13.8 Other obstructive and reflux uropathy | CPT/HCPCS: 81003; 99215 ==

== ENCOUNTER 2021-01-08 01:26 | Outpatient (CLI) | payer MEDICARE, SELFPAY ==
--- NOTE | 2021-01-08 | DI.US_ITS ---
Exam(s) US THYROID EXAM: US THYROID CLINICAL HISTORY: NONTOXIC MULTINODULAR GOITER,E04.2. TECHNIQUE: Ultrasound thyroid performed using standard protocol. COMPARISON: Chest CT scan June 2020 FINDINGS: There is significant asymmetry in the size of the thyroid lobes, right significantly larger than left and extending down towards the right side of the mediastinum. Both lobes contain numerous nodules. The most significant nodules are discussed below. This will in clude 3 nodules in the right lobe and 2 nodules in the left lobe. RIGHT THYROID LOBE: Measures 3.2 cm AP x 4.4 cm wide x 6.6 cm craniocaudal. The largest nodule in the right lobe measures approximately 4.1 x 2.8 x 4.1 cm and is predominantly s olid mildly hypoechoic and exhibits smooth margins without evidence of extrathyroidal extension. It is not taller than wider in the transverse plane. Does contain some punctate echogenic foci. Total points= 7 At the mid level of the right lobe is a solid well-defined smooth nodule measuring 2.6 x 2.1 x 1.8 cm , somewhat hypoechoic compared to surrounding parenchyma. Appearing slightly taller than wider in th e transverse plane and containing echogenic foci. Total points= 7 Above this level there is another solid nodule measuring 1.9 x 1.2 x 1.0 cm. Somewhat hypoechoic and also taller than wider in the transverse plane. Not containing echogenic foci. Total points=7 TiRads: 5 ISTHMUS: Thickened measuring 7 millimeters. LEFT THYROID LOBE: Measures 1.6 cm AP x 1.6 wide x 3.3 cm craniocaudal Midpole level there is a well-defined 0.7 x 0.6 x 0.7 cm solid nodule which is isoechoic to surroundi ng parenchyma and not taller than wider.. However contains some punctate echogenic foci. Total poin ts= 6 Below this level is a slightly smaller 0.5 x 0.4 x 0.4 cm solid hypoechoic well-defined nodule not ta ller than wider in the transverse plane and not containing echogenic foci. Total points=4 TiRads: 4 LYMPH NODES: There is no significant adenopathy. IMPRESSION: 1. Both the nodules in left lobe can be followed in 6 months. However, the 3 nodules in the right lo be are all greater than 1 cm size and all 3 exhibit 7 points and are classified as TiRads 5 and shoul d undergo ultrasound-guided FNA. TiRads: 5..... Suspicious right thyroid nodules. 2. There is no significant lymphadenopathy. DATA REPOSITORY:
== END 2021-01-08 01:46 ==
PROVIDERS: PCP Family Medicine; Visit Provider Physician Assistant
DX: E04.2 Nontoxic multinodular goiter (principal)
CPT/HCPCS: 76536

== ENCOUNTER → 2021-03-19 09:24 | Outpatient (BNVA) | payer MEDICARE, SELFPAY | PROVIDERS: PCP Family Medicine; Referring Provider Family Medicine; Visit Provider Physical Therapy Assistant | DX: Z12.11 Encounter for screening for malignant neoplasm of colon (principal); Z86.010 Personal history of colon polyps ==

== ENCOUNTER 2021-03-30 11:19 | Day surgery (SDC) | payer MEDICARE, SELFPAY ==
--- NOTE | 2021-03-30 07:03 | W.COLOREPORT ---
Date of service: 03/30/21 Time of Service: 13:07 Colonoscopy Report Date of procedure: 03/30/21 Pre-op diagnosis general: Hx of colon polyps Post-op diagnosis procedure note: same (sigmoid diverticulosis) Procedure: Colonoscopy with polypectomy Surgeon: Loly Price Anesthesia Type: MAC (ASA 2/ Nissa Tierney CRNA) Estimated blood loss (mL): 2 Pathology: other (Ascending polyp) Complications: None Disposition: same day Indications: The patient is here for Colonoscopy pre-op. His last screening was in 2004 at the [facility] and it was remarkable for polyps. He has no family history of colon cancer. He has not had any bowel habit changes. -Discussed colonoscopy bowel prep as well as the procedure. Discussed possible complications of the procedure to include bleeding, pain, perforation, missed small lesion/polyp, sore throat, aspiration and adverse reaction to the medications. Questions were answered to patient?s satisfaction. No guarantees were implied or given. Prep: Miralax/Dulcolax Procedure Start Time: :07 Procedure End Time: : Retraction Time: 10 minutes Findings: one flat polyp Sigmoid diverticulosis Procedure Description: After informed consent was obtained the patient was taken to the procedure room and placed in a left decubitous position. Monitors were applied and a time out was done. The patients name, date of , procedure, allergies to medications and metal in their body was reviewed. The patient was then sedated. Once sedated and comfortable a rectal exam was done. External exam was normal. Internal exam revealed a normal sphincter tone and no palpable masses. The prostate felt smooth but enlarged. The scope was then introduced and retro-flexed. No internal hemorrhoids, polyps or masses were identified on retro-flexion. The scope was then advanced to the cecum without difficulty. The ileocecal vlave and appendiceal orifice were identified. The prep was adequate. The scope was then slowly retracted over 10 minutes back into the rectum. Polyps were removed with cold forceps in the ascending colon. There was moderate sigmoid diverticulosis noted. The scope was removed and the patient was woken up and taken back to Same day surgery in stable condition. The patient tolerated the procedure well and there were no immediate complications. Follow up: The patient should follow up as needed if they develop changes in bowel habits or other new gastrointestinal complaints.
--- NOTE | 2021-03-30 07:04 | W.PM.DSUDISC ---
Discharge Plan Disposition Patient Disposition: HOME Condition: Good Discharge Details Reason For Visit: Colonoscopy Attending Provider: Loly Price Primary Care Provider: Yony Castillo Home Meds and New Rx's Prescriptions: Continued acetaminophen [Tylenol] 325 mg tablet 325 mg PO HS PRNRF: 0 Biofreeze (menthol) 4 % gel TP PRN PRNRF: 0 simvastatin 40 mg tablet 40 mg PO DAILY Qty: 90 RF: 3 aspirin [Aspir-81] 81 MG tablet,delayed release (DR/EC) 81 mg PO DAILY RF: 0 multivitamin 1 EACH capsule 1 tab PO DAILY RF: 0 lidocaine HCl [Aspercreme (lidocaine HCl)] 4 % Cream 1 applic TOPICAL BID PRNRF: 0 lidocaine [Lidoderm] 5 % adhesive patch,medicated 1 patch TP DAILY PRN (Reason: pain) Qty: 15 RF: 0 Discontinued bisacodyl [Dulcolax (bisacodyl)] 5 mg tablet,delayed release (DR/EC) 5 mg PO ONCE Qty: 4 RF: 0 polyethylene glycol 3350 17 gram/dose powder 238 g PO ONCE Qty: 238 RF: 0 Discharge Instructions Instructions: Diverticulosis (DC), Colorectal Polyps (DC) Additional Instructions: Findings: one small polyp diverticulosis Follow up: as needed Please call if you develop: fevers >101.5 Nausea or Vomiting Abdominal pain that is not transient Rectal bleeding that is more then a tbsp A hard abdomen and inability to pass gas DAY SURGERY UNIT POST ENDOSCOPY INSTRUCTIONS Instructions for everyone who is given Anesthesia: For your safety, please do the following for the next 24 Hours: a. Do not drive or operate dangerous equipment b. Do not drink alcohol beverages or use any recreational drugs for the first 24 hours or while taking pain medications. The medications in your body may have a reaction that can be dangerous. c. Do not make any important decisions or sign any important papers 1. Generally there are no restrictions on your activity after a day or so has gone by, but you may feel a bit fatigued for a few days. 2. After you arrive home you may have a light meal and return to a normal diet as you can tolerate it without feeling sick to your stomach. 3. After surgery, you may feel pain or discomfort. This should be only transient, but if it persists please contact your doctor. 4. If there are any questions regarding the findings of your procedure, please feel free to contact your doctor. 6. If you are unable to contact your doctor with a problem, contact the hospital at [phone]. 7. Continue all your regular medications unless directed otherwise. I understand the above instructions and have no questions. Signature of Patient or Responsible Adult Escort Date/Time Name of Responsible Adult Escort Signature of Nurse Date/Time Activity:: Activity as Tolerated Diet:: high fiber diet Discharge Orders Discharge Orders: Discharge Order (Routine); Ordered 03/30/21 Ordered By: Loly Price
[2021-03-30 11:43] VITALS: BP 118/71; PULSE 57; RESP 16; TEMP 36.2; O2SAT 96
[2021-03-30] MEDS: Lactated Ringers 1,000 ML 80 ML IV (12:13)
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
[2021-03-30 12:45] VITALS: BMI 26.6
--- NOTE | 2021-03-30 13:15 | BOWEL_PTH ---
PATIENT: Prasad Martinez LOC: [facility] U#:[id number] AGE/SX: 85/M ROOM: RE03/30/[address]: Loly Price MD : [id number] BED: DIS: 03/30/2021 SPEC #: [id number] RECD: 03/30/21 17:21 STATUS: DOMINIK RE #: [id number] MAYE: 03/30/21 13:[address]: Loly Price DEPT: Surgical Specimen RECD BY: Delores Manning ENTERED: 03/30/21 17:22 SP TYPE: Bowel OTHR DR: Yony Castillo MD Tissues: 1 - BIOPSY BOWEL Procedures: GROSS AND MICRO LEVEL 4 Comments: [id number]
[2021-03-30 13:37] VITALS: BP 93/62; PULSE 57; RESP 16; TEMP 36.1; O2SAT 94
[2021-03-30 13:56] VITALS: BP 127/81; PULSE 62; RESP 16; TEMP 36.2; O2SAT 96
--- NOTE | 2021-03-30 14:21 | W.ANESPOSTOP ---
Postoperative Evaluation Date, Time and Location Date Performed: 03/30/21 Time Performed: 14:01 Patient Location: Day Surgery Unit Vital Signs Most Recent Imported Vital Signs: Most Recent Vital Signs Temp Pulse Resp BP Pulse Ox 36.2 C L 62 16 127/81 96 03/30/21 13:56 03/30/21 13:56 03/30/21 13:56 03/30/21 13:56 03/30/21 13:56 Pain Score Most Recent Pain Score: Most Recent Pain Score Pain Level 0 03/30/21 13:56 Assessment Mental Status: Awake (Alert & Oriented to Patient Baseline) Airway and Respiratory Function: Patent airway with normal (patient baseline) respiratory exam Cardiovascular Function: Hemodynamically Stable Hydration Status: Adequately Hydrated Nausea & Vomiting: No Nausea or Vomiting Pain: Pt. Denies Any Pain Peripheral Nerve Block: Patient did not receive a nerve block
== END 2021-03-30 14:23 | disposition home or self-care (01) ==
LOC: SUR 11:19
PROVIDERS: PCP Family Medicine; Visit Provider Surgery
PROC: 0DJD8ZZ Inspection of Lower Intestinal Tract, Via Natural or Artificial Opening Endoscopic (ICD-10-PCS; CPT 45378; principal; 2021-03-30 12:15)
DX: Z12.11 Encounter for screening for malignant neoplasm of colon (principal); D12.2 Benign neoplasm of ascending colon; K57.30 Diverticulosis of large intestine without perforation or abscess without bleeding; Z86.010 Personal history of colon polyps
CPT/HCPCS: 45380; 88305; J2001

== ENCOUNTER → 2021-04-02 10:14 | Outpatient (BNVA) | payer MEDICARE, SELFPAY | PROVIDERS: PCP Family Medicine; Referring Provider Family Medicine; Visit Provider Nurse Practitioner Gerontology | DX: N40.1 Benign prostatic hyperplasia with lower urinary tract symptoms (principal); N13.8 Other obstructive and reflux uropathy | CPT/HCPCS: 99214 ==

== ENCOUNTER 2021-04-02 12:46 | Outpatient (REF) | payer MEDICARE, SELFPAY ==
[2021-04-02 22:19] LABS: PSA, Screening 1.4 ng/mL (0.0-6.5)
== END 2021-04-02 12:47 | disposition home or self-care (01) ==
LOC: LBN 12:46
PROVIDERS: PCP Family Medicine; Visit Provider Nurse Practitioner Gerontology
DX: R35.0 Frequency of micturition (principal); Z12.5 Encounter for screening for malignant neoplasm of prostate; Z80.42 Family history of malignant neoplasm of prostate
CPT/HCPCS: 84153

== ENCOUNTER → 2021-07-08 09:44 | Outpatient (BNVA) | payer MEDICARE, SELFPAY | PROVIDERS: PCP Family Medicine; Referring Provider Family Medicine; Visit Provider Nurse Practitioner Gerontology | DX: N40.1 Benign prostatic hyperplasia with lower urinary tract symptoms (principal); N13.8 Other obstructive and reflux uropathy | CPT/HCPCS: 99214 ==

== ENCOUNTER → 2021-10-08 10:47 | Outpatient (BNVA) | payer MEDICARE, SELFPAY | PROVIDERS: PCP Family Medicine; Referring Provider Family Medicine; Visit Provider Nurse Practitioner Gerontology | DX: R35.0 Frequency of micturition (principal); N40.1 Benign prostatic hyperplasia with lower urinary tract symptoms; N13.8 Other obstructive and reflux uropathy | CPT/HCPCS: 99214 ==

== ENCOUNTER → 2022-04-05 09:53 | Outpatient (BNVA) | payer MEDICARE, SELFPAY | PROVIDERS: PCP Family Medicine; Referring Provider Family Medicine; Visit Provider Nurse Practitioner Gerontology | DX: R35.1 Nocturia (principal); N40.1 Benign prostatic hyperplasia with lower urinary tract symptoms; R35.0 Frequency of micturition; N13.8 Other obstructive and reflux uropathy | CPT/HCPCS: 51798; 99214 ==

== ENCOUNTER → 2022-05-31 02:49 | Outpatient (CLI) | payer MEDICARE, SELFPAY ==
--- NOTE | 2022-05-31 | DI.US_ITS ---
Exam(s) US THYROID EXAM: US THYROID CLINICAL HISTORY: GOITER E04.2 NODULE E04.1 MULTINODULAR GOITER E04.2. TECHNIQUE: Ultrasound thyroid performed using standard protocol. COMPARISON: US US THYROID from 01/08/2021 FINDINGS: ISTHMUS: 6 mm RIGHT LOBE: Size: 6 x 6 x 3.4 x 3.4 cm Echogenicity: Normal. Vascularity: Normal. Nodules: 2.3 by 1.4 x 0.7 centimeter solid hypoechoic nodule superior pole right lobe, TR 4. Size in creased compared to prior. 2.0 x 1.8 x 1.7 cm. Solid hypoechoic nodule mid thyroid with punctate ec hogenic foci measuring 2.0 x 1.8 x 1.7 cm, increased in size from prior, TR 5. 4.4 x 4.6 x 3.2 cent imeter solid hypoechoic nodule with echogenic foci lower pole, also increased in size, TR 5. LEFT LOBE: Size: 3.4 x 1.7 x 1.8 cm Echogenicity: Normal. Vascularity: Normal. Nodules: No change 2 small nodules measuring less than a centimeter in size. OTHER FINDINGS: None. IMPRESSION: Interval increase in size of previously noted right thyroid nodules. DATA REPOSITORY:
== END ==
PROVIDERS: PCP Family Medicine; Visit Provider Physician Assistant
DX: E04.2 Nontoxic multinodular goiter (principal)
CPT/HCPCS: 76536

== ENCOUNTER → 2022-10-04 09:39 | Outpatient (BNVA) | payer MEDICARE, SELFPAY | PROVIDERS: PCP Family Medicine; Referring Provider Family Medicine; Visit Provider Nurse Practitioner Gerontology | DX: N40.1 Benign prostatic hyperplasia with lower urinary tract symptoms (principal); R35.0 Frequency of micturition; N13.8 Other obstructive and reflux uropathy | CPT/HCPCS: 51798; 99213 ==

== ENCOUNTER 2022-12-02 02:34 | Outpatient (CLI) | payer MEDICARE, SELFPAY ==
--- NOTE | 2022-12-02 | DI.US_ITS ---
Exam(s) US THYROID EXAM: US THYROID CLINICAL HISTORY: THYROID NODULE, E04.1, 6 MO F/U. TECHNIQUE: Ultrasound thyroid performed using standard protocol. COMPARISON: US US THYROID from 01/08/2021 US US THYROID from 05/31/2022 FINDINGS: Right thyroid lobe is again noted be larger than the left. Both thyroid lobes are again noted contai n nodules, these nodules again noted to be larger on the right side than nodules on the left side. N one of the left lobe nodules measure greater than 1 cm. RIGHT THYROID LOBE: Measures 6.4 cm AP x 3.3 cm wide x 3.8 cm craniocaudal Nodule #1. This nodule is most inferior and is again noted to be the largest, measuring 3.9 x 2.6 x 4.5 cm. composition: Solid-2 points Echogenicity: Hypoechoic-2 points Shape: Wider than taller-0 points Margin: Smooth- 0 points Echogenic Foci: None-0 points Total Points for this nodule: 4 ACR Ti-Rads Category: TR4 This nodule classifies for ultrasound-guided FNA as it is a TR 4 nodule which measures greater than 1 .5 cm. Nodule #2 this is the mid level solid nodule in the right lobe Size: Measures 1.7 x 1.4 x 1.5 cm cm Composition: Solid-2 points Echogenicity: Hypoechoic- 2 points Shape: Wider than taller- 0 points Margin: Smooth-0 points Echogenic Foci: Both central and punctate-5 points Total points for this nodule: 9 ACR Ti-Rads Category: TR5 This is a suspicious parrots 5 nodule and qualifies for ultrasound-guided FNA. Nodule #3 this is the most superiorly located nodule in the right lobe. Size: Measures 2.4 x 0.9 x 0.8 cm Composition: Solid-2 points Echogenicity: Hypoechoic-2 points Shape: Wider than taller- 0 points Margin: Smooth-0 points Echogenic Foci: None-0 points Total points for this nodule: 4 ACR Ti-Rads Category: 4 This nodule also qualifies for ultrasound-guided FNA given that it measures greater than 1.5 cm. ISTHMUS: Normal thickness. There are no nodules in the isthmus. LEFT THYROID LOBE: Measures 3.5 cm AP x 1.2 wide x 1.4 cm craniocaudal There are multiple sub cm small nodules again noted in the left lobe. These are too small to follow for for ultrasound-guided FNA. LYMPH NODES: There is no significant adenopathy. IMPRESSION: 1. Three right lobe solid nodules as described above, all of which qualify by TiRads rating for going ultrasound-guided FNA. However, these nodules exhibit minimal change from the prior studies. 2. Small sub cm benign-appearing nodules in the opposite-left lobe. 3. There is no significant lymphadenopathy. DATA REPOSITORY:
== END 2022-12-02 02:54 ==
LOC: DI 02:34
PROVIDERS: PCP Family Medicine; Visit Provider Physician Assistant
DX: E04.2 Nontoxic multinodular goiter (principal)
CPT/HCPCS: 76536

== ENCOUNTER 2023-02-04 12:07 | Outpatient (CLI) | payer MEDICARE, SELFPAY ==
--- NOTE | 2023-02-04 | DI.RAD_ITS ---
Exam(s) XR SACRUM EXAM: XR SACRUM CLINICAL HISTORY: RT HIP PAIN, M25.551, [id number]. TECHNIQUE: 2D digital imaging was performed. COMPARISON: No priors for comparison. FINDINGS: BONES: No acute fracture is present. No bony destructive lesion is seen. The bones appear osteopenic. JOINTS: No dislocation present. SOFT TISSUE: Normal. IMPRESSION: No acute fracture or dislocation. DATA REPOSITORY: RADIATION DOSE DELIVERED:
--- NOTE | 2023-02-04 | DI.RAD_ITS ---
Exam(s) XR HIP PELVIS ADULT BL EXAM: XR HIP PELVIS ADULT BL CLINICAL HISTORY: PAIN IN RT HIP, M25.551, [id number]. TECHNIQUE: 2D digital imaging was performed of the pelvis and bilateral hips. Five images were obta ined. AP pelvis and lateral views of both hips were obtained. COMPARISON: CR XR HIP RT COMPLETE AP PELVIS from 08/20/2020 FINDINGS: BONES: No acute fracture is present. No bony destructive lesion is seen. JOINTS: No dislocation present. There are mild degenerative changes seen at the hips bilaterally. SOFT TISSUE: Normal. IMPRESSION: Mild degenerative changes of the hips bilaterally. No acute abnormality. DATA REPOSITORY: RADIATION DOSE DELIVERED:
--- NOTE | 2023-02-04 | DI.RAD_ITS ---
Exam(s) XR ANKLE RT COMPLETE EXAM: XR ANKLE RT COMPLETE CLINICAL HISTORY: PAIN IN RT ANKLE AND JOINTS OF RT FOOT, M25.571, [id number]. TECHNIQUE: 2D digital imaging was performed of the right ankle. Three images were obtained. AP, la teral and oblique views were obtained. COMPARISON: CR XR FOOT RT COMPLETE from 10/10/2019 FINDINGS: BONES: No acute fracture is present. No bony destructive lesion is seen. Stable tiny well corticated osseous densities are seen at the tips of both the medial lateral malleoli. JOINTS: The ankle mortise is normally aligned. SOFT TISSUE: Normal. IMPRESSION: No acute abnormality. DATA REPOSITORY: RADIATION DOSE DELIVERED:
== END 2023-02-04 12:27 ==
PROVIDERS: PCP Family Medicine; Visit Provider Internal Medicine
DX: M16.0 Bilateral primary osteoarthritis of hip (principal)
CPT/HCPCS: 73521; 72220; 73610

== ENCOUNTER → 2023-03-03 09:16 | Outpatient (BNVA) | payer MEDICARE, SELFPAY | PROVIDERS: PCP Family Medicine; Referring Provider Family Medicine; Visit Provider Psychiatry & Neurology Neurology | DX: R26.89 Other abnormalities of gait and mobility (principal); I10 Essential (primary) hypertension | CPT/HCPCS: 99214 ==

== ENCOUNTER 2023-03-15 06:11 | Emergency (ER) | payer MEDICARE, SELFPAY ==
[2023-03-15] VITALS (10 sets, daily range): BP systolic 124–142; BP diastolic 71–81; PULSE 52–90; RESP 8–20; TEMP 36.8–37.1; O2SAT 93–99
--- NOTE | 2023-03-15 06:15 | RT.EKG_ITS ---
APPROVED REPORT Exam: Resting ECG Reason for Exam: Fall Patient Location: E HR:50 bpm ECG Measurements Heart Rate 50 AXIS MD 305 P 51 QRSd 168 QRS -38 QT 468 T 10 QTc 428 Conclusion Sinus bradycardia...rate< 60 Prolonged MD interval...MD >220, V-rate 50- 90 Right bundle branch block...QRSd>120, terminal axis(90,270) Inferior infarct, old...Q >35mS, II III aVF
--- NOTE | 2023-03-15 06:45 | DI.CT_ITS ---
Exam(s) CT HEAD CERVICAL SPINE WO EXAM: CT HEAD CERVICAL SPINE WO CLINICAL HISTORY: patient fell from to ground yesterday. TECHNIQUE: Imaging Protocol: Axial computed tomography images with coronal and sagittal reformatted images were created and reviewed COMPARISON: CT CT BRAIN NECK CTA from 07/25/2020 FINDINGS: CT Head: Ventricles and Extra axial spaces: Normal in size and morphology for the patient's age. Hemorrhage: None. 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 There are areas of de creased attenuation in the white matter consistent with small vessel ischemic disease. No evidence o f an acute territorial infarct. Midline shift: None. Brainstem/Cerebellum: Normal. Calvarium: Normal. Visualized Paranasal sinuses/Mastoids: Clear. Soft Tissues: Unremarkable. CT Cervical Spine: Bones: No acute fracture or subluxation. Moderate degenerative changes are present throughout the cer vical spine. Soft Tissues: There is a stable hypodense right thyroid mass. Please review prior patient history fo r prior ultrasounds or biopsies. Lung Apices: Clear. IMPRESSION: 1. No acute intracranial process. 2. No acute fracture or subluxation in the cervical spine. RADIATION DOSE DELIVERED: 1,173.33mGy.cm Total DLP DATA REPOSITORY: All CT scans at this facility are submitted to the National Radiology Data Registry (NRDR) Dose Index Registry (DIR) with the [employer] (A[employer]). RADIATION OPTIMIZATION: All CT scans at this facility use at least one of these dose optimization te chniques: automated exposure control; mA and/or kV adjustment per patient size (includes targeted exa ms where dose is matched to clinical indication); or iterative reconstruction.
--- NOTE | 2023-03-15 06:48 | DI.CT_ITS ---
Exam(s) CT THORACIC SPINE RECONS CT CHEST WO EXAM: CT CHEST WO and CT thoracic spine recons CLINICAL HISTORY: trauma, right rib posterior pain, fell yesterday. TECHNIQUE: Imaging protocol: Axial computed tomography images were obtained and coronal and sagittal reformatted images were created and reviewed. COMPARISON: CT CT CHEST PE CTA from 07/21/[address] THORACIC SPINE RECONS from 03/15/2023 FINDINGS: The examination is limited due to patient motion artifact. Tracheobronchial tree: Patent where visualized. Pulmonary parenchyma: No consolidation or dominant measurable mass. No architectural distortion. Mediastinum and [place]: No dominant adenopathy or fluid collection. The esophagus is unremarkable. Thyroid gland: There are stable right thyroid masses, 1 of which appears calcified. It causes left w ere deviation of the trachea. Pleura: No effusion or pneumothorax. Heart: Cardiomegaly. Coronary artery calcifications and/or stents are present. No pericardial effus ion. Aorta: The ascending thoracic aorta measures 4.0 x 3.7 cm. Atherosclerosis is present. Upper abdomen: Unremarkable. Lymph nodes: Within normal limits. Soft tissues: Unremarkable. Bones:Within normal limits for the patient's age. CT thoracic spine recons: No acute fractures or subluxations are seen. There are mild degenerative c hanges seen throughout the thoracic spine occluding disc space narrowing and osteophyte production. No severe central spinal canal stenosis is seen. The bones are normally mineralized. There is stabl e wedging of the T8 vertebral body. IMPRESSION: 1. No acute pulmonary process. 2. No acute fracture or subluxation of the thoracic spine. 3. Stable right thyroid masses. Please review the patient's clinical history that would indicate ilia or evaluation of the thyroid nodules. If there is no such history, nonemergent thyroid ultrasound sh ould be obtained. RADIATION DOSE DELIVERED: Total DLP Total DLP DATA REPOSITORY: All CT scans at this facility are submitted to the National Radiology Data Registry (NRDR) Dose Index Registry (DIR) with the [employer] (ACR). RADIATION OPTIMIZATION: All CT scans at this facility use at least one of these dose optimization te chniques: automated exposure control; mA and/or kV adjustment per patient size (includes targeted exa ms where dose is matched to clinical indication); or iterative reconstruction.
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
[2023-03-15 07:02] LABS: Abs Immature Grans 0.03 10^3/uL (0.0-0.06); Absolute Basophil Count 0.01 10^3/uL (0.0-0.2); Absolute Eosinophil Count 0.05 10^3/uL (0.0-0.7); Absolute Lymphocyte Count 1.21 10^3/uL (1.2-3.4); Absolute Monocyte Count 0.52 10^3/uL (0.1-0.8); Absolute Neutrophil Count 4.04 10^3/uL (1.2-6.7); Basophils % 0.2; Eosinophils % 0.9; Immature Grans % 0.5; Lymphocytes % 20.6; MCHC 34.1 % (32.0-36.0); MCV 97 fL (80-95); MPV 10.7 fL (8.0-11.0); Monocytes % 8.9; Neutrophils % 68.9; Platelet Count 136 10^3/uL (130-400); RBC 4.54 10^6/uL (4.36-5.78); RDW-SD 43.3 fL; WBC 5.86 10^3/uL (4.4-10.8)
[2023-03-15 07:16] LABS: ALT 33 U/L (16-63); AST 30 U/L (15-37); Albumin 3.6 g/dL (3.4-5.0); Alkaline Phosphatase 69 U/L (46-116); Anion Gap 5.8 mmol/L (3-11); BUN 20 mg/dL (7-18); Bilirubin, Total 1.4 mg/dL (0.2-1.0); CO2 30.2 mmol/L (21.0-32.0); CREATININE 1.1 mg/dL (0.70-1.30); Calcium 8.6 mg/dL (8.5-10.1); Chloride 105 mmol/L (98-107); Estimated GFR 64.97 (mL/min/1.73m2); Glucose 111 mg/dL (74-106); Potassium 4.1 mmol/L (3.5-5.1); Sodium 141 mmol/L (136-145); Total Protein 6.7 g/dL (6.4-8.2)
--- NOTE | 2023-03-15 07:43 | DI.VRAD_ITS ---
PROCEDURE INFORMATION: Exam: CT Head Without Contrast Exam date and time: 03/15/2023 7:02 AM Age: 87 years old Clinical indication: Injury or trauma; Fall; Blunt trauma (contusions or hematomas); Patient HX: PT fell to ground yesterday about 5pm TECHNIQUE: Imaging protocol: Computed tomography of the head without contrast. COMPARISON: CT HEAD CERVICAL SPINE WO 07/21/2020 12:25 PM FINDINGS: Brain: Area of encephalomalacia in the anterior left cerebellum. Mild diffuse cerebral atrophy, consistent with patient's age. No intracranial hemorrhage identified. No large territorial ischemic infarcts identified. Cerebral ventricles: The ventricles are within normal limits. Paranasal sinuses: The visualized sinuses are unremarkable. Mastoid air cells: The visualized mastoid air cells are well aerated. Bones/joints: The osseous structures are intact. Soft tissues: Unremarkable. IMPRESSION: No acute intracranial abnormality identified. PROCEDURE INFORMATION: Exam: CT Cervical Spine Without Contrast Exam date and time: 03/15/2023 7:02 AM Age: 87 years old Clinical indication: Injury or trauma; Fall; Blunt trauma (contusions or hematomas); Patient HX: PT fell to ground yesterday about 5pm TECHNIQUE: Imaging protocol: Computed tomography of the cervical spine without contrast. COMPARISON: CT HEAD CERVICAL SPINE WO 07/21/2020 12:25 PM FINDINGS: Bones/joints: The cervical spine maintains a normal lordotic curvature. No spondylolisthesis. The vertebral bodies maintain normal height. No fracture identified. Mild multilevel loss of intervertebral disc height with endplate degenerative changes. Multilevel facet arthropathy. Multilevel neural foraminal narrowing. Lungs: The visualized lung apices are normal. Thyroid: Large nodule in the right lobe of the thyroid measuring up to 4.8 cm with associated large calcification, similar to prior exam. Soft tissues: No prevertebral soft tissue swelling identified. Calcification in the nuchal ligament in the posterior paraspinal soft tissues at the level of C5-C6. IMPRESSION: 1. No acute fracture or traumatic malalignment identified within the cervical spine. 2. Multilevel degenerative changes. Dictated and Authenticated by: Andrew Argueta MD. Ordering:TOMY Canas MD
--- NOTE | 2023-03-15 07:52 | DI.VRAD_ITS ---
PROCEDURE INFORMATION: Exam: CT Chest Without Contrast; Diagnostic Exam date and time: 03/15/2023 7:06 AM Age: 87 years old Clinical indication: Injury or trauma; Fall; Blunt trauma (contusions or hematomas); Patient HX: Trauma, right rib posterior pain, fell yesterday TECHNIQUE: Imaging protocol: Diagnostic computed tomography of the chest without contrast. 3D rendering (Not supervised by radiologist): MIP and/or 3D reconstructed images were created by the technologist. COMPARISON: CT CHEST PE CTA 07/21/2020 12:34 PM FINDINGS: Thyroid: Enlarged heterogeneous right thyroid, 4.7 cm. Lungs: Unremarkable. No consolidation. No masses. Pleural spaces: Unremarkable. No pneumothorax. No pleural effusion. Heart: The heart is normal in size. There is no significant pericardial effusion. There are significant coronary artery vascular calcifications. Lymph nodes: Unremarkable. No enlarged lymph nodes. Vasculature: Unremarkable. No aortic aneurysm. Bones/joints: There are multilevel degenerative changes of the visualized thoracolumbar spine. There is no acute osseous pathology. Stable T8 compression fracture deformity. Soft tissues: Unremarkable. IMPRESSION: 1. Enlarged heterogeneous right thyroid, 4.7 cm. Follow-up non-emergent thyroid ultrasound is recommended. 2. Stable T8 compression fracture deformity. 3. Degenerative changes. Dictated and Authenticated by: Oneal Bhakta MD. Ordering:TOMY Canas MD
--- NOTE | 2023-03-15 07:56 | DI.VRAD_ITS ---
PROCEDURE INFORMATION: Exam: CT Thoracic Spine Without Contrast Exam date and time: 03/15/2023 7:06 AM Age: 87 years old Clinical indication: Injury or trauma; Fall; Blunt trauma (contusions or hematomas); Patient HX: PT fell to ground yesterday TECHNIQUE: Imaging protocol: Computed tomography of the thoracic spine without contrast. COMPARISON: CT THORACIC SPINE RECONS 07/21/2020 12:34 PM FINDINGS: Bones/joints: No acute fracture. T8 vertebral body compression fracture deformity, stable from 07/21/2020. Normal alignment. Multilevel degenerative change with multilevel disc space narrowing, partial anterior fusion, endplate spondylosis, and osteophyte production. No significant disc bulge or herniation. No severe spinal canal stenosis. Multilevel bilateral neural foraminal canal stenosis. Soft tissues: Unremarkable. IMPRESSION: No acute fracture or dislocation. T8 vertebral body compression fracture deformity, stable from 07/21/2020. Multilevel degenerative change. Dictated and Authenticated by: Oneal Bhakta MD. Ordering:TOMY Canas MD
[2023-03-15] MEDS: Acetaminophen 325 MG TAB (07:58)
--- NOTE | 2023-03-15 08:09 | W.EDPROG ---
Date of service: 03/15/23 Time of Service: 08:09 Medical Decision Making Prior to signout imaging resulted. CT of the chest interpreted by radiology: Enlarged heterogeneous right thyroid, 4.7, follow-up nonemergent thyroid ultrasound is recommended. Stable T8 compression fracture deformity. There is no acute osseous pathology. CT of the head interpreted by radiology: No acute intracranial abnormality identified. CT of the cervical spine interpreted by radiology: No acute fracture or traumatic malalignment identified within the cervical spine. Multilevel degenerative changes. CT of the cervical spine interpreted by radiology: No acute fracture or dislocation. T8 vertebral body compression fracture deformity, stable from 07/21/2020. Multiple level degenerative change. All results were discussed with patient he is aware of thyroid nodule and has been following this with PCP. I will provide acetaminophen, ibuprofen and lidocaine patch. Will provide incentive spirometry. Plan for outpatient follow-up with PCP. Usual customary discharge instructions were reviewed. Discharge Plan Disposition Patient Disposition: Home Discharge Details Clinical Impression: Contusion of rib on right side, Fall Primary Care Provider: Yony Castillo ED Provider: Missael Henry Home Meds and New Rx's Prescriptions: Continued acetaminophen [Tylenol] 325 mg tablet 325 mg PO HS PRN rosuvastatin 40 mg tablet 40 mg PO DAILY mirtazapine 7.5 mg tablet 7.5 mg PO QHS Qty: 30 11RF aspirin [Aspir-81] 81 MG tablet,delayed release (DR/EC) 81 mg PO DAILY multivitamin 1 EACH capsule 1 tab PO DAILY Discharge Instructions Instructions: How to Use an Incentive Spirometer (ED), Rib Contusion (ED) Additional Instructions: Please use incentive spirometer every 2 hours while awake for the next week. Please take ibuprofen over the counter. Take 600mg by mouth every 6 hours as needed for pain. Please take acetaminophen (tylenol) - 650mg every 6 hours by mouth as needed for pain. Use lidocaine patches. A patch was placed today. You can leave this on for 12 hours. Change patch daily thereafter. These patches are available [id number]. Dose according to label. Please contact your primary care physician to arrange follow-up. Return to the ER immediately for any worsening or new concerning symptoms. Referrals: Yony Castillo MD [Primary Care Provider] -
[2023-03-15] MEDS: Lidocaine 5% Patch 1 PATCH TP (08:18)
== END 2023-03-15 08:41 | disposition home or self-care (01) ==
PROVIDERS: Emergency Provider Student in an Organized Health Care Education/Training Program; PCP Family Medicine
DX: S20.221A Contusion of right back wall of thorax, initial encounter (principal); S20.411A Abrasion of right back wall of thorax, initial encounter; R07.9 Chest pain, unspecified; R00.1 Bradycardia, unspecified; I11.0 Hypertensive heart disease with heart failure; E04.1 Nontoxic single thyroid nodule; Z79.82 Long term (current) use of aspirin; W01.0XXA Fall on same level from slipping, tripping and stumbling without subsequent striking against object, initial encounter; Y93.01 Activity, walking, marching and hiking
CPT/HCPCS: 36415; 71250; 80053; 93005; 99284; 70450; 72125; 85025; 93010; 99283

== ENCOUNTER 2023-03-24 07:02 | Emergency (ER) | payer MEDICARE, SELFPAY ==
[2023-03-24] VITALS (21 sets, daily range): BP systolic 120–145; BP diastolic 63–90; PULSE 53–64; RESP 12–18; TEMP 35.7; O2SAT 92–96
--- NOTE | 2023-03-24 07:15 | DI.CT_ITS ---
Exam(s) CT ABDOMEN PELVIS WO EXAM: CT ABDOMEN PELVIS WO CLINICAL HISTORY: right lower back pain after fall 10 days ago. TECHNIQUE: Imaging Protocol: Axial computed tomography images with coronal and sagittal reformatted images were created and reviewed CONTRAST MATERIAL: Intravenous: none Oral: None COMPARISON: CT CT CHEST PE CTA from 07/21/2020 FINDINGS: VISUALIZED LUNG BASES: Unchanged from previous. No new pleural effusions. ABDOMEN: There is no ascites. LIVER: There are no obvious focal hepatic lesions evident of this noninfused study. GALLBLADDER/BILIARY: No obvious gallbladder pathology. CBD is not dilated. PANCREAS: Multiple small pancreatic calcifications are noted in, consistent with chronic pancreatitis . No discrete mass nor dilatation of the pancreatic duct evident. SPLEEN: Spleen is not enlarged. No obvious intrasplenic lesions. ADRENALS: There are no significant adrenal masses. KIDNEYS:Parapelvic cysts noted in both kidneys. Do not require workup. No evidence of laceration no r subcapsular hematomas. No solid renal masses. No calculi nor hydronephrosis. . ABDOMINAL AORTA: Mild distal dilatation. Also arterial megaly of the common iliac arteries. No prom inent aneurysms. LYMPH NODES: There is no retroperitoneal nor paraaortic adenopathy. ABDOMINAL WALL: No evidence of significant anterior abdominal wall nor inguinal hernia. GI: There is no evidence of bowel obstruction, free air, nor abscess. No evidence of bowel wall nor mesenteric hematoma. PELVIS: LYMPH NODES: There is no intrapelvic nor inguinal adenopathy. GI: No evidence of appendicitis.Redundant sigmoid with diverticuli but no obvious evidence of acute d iverticulitis. No free fluid. URINARY BLADDER: No calculi nor obvious masses evident REPRODUCTIVE: Enlarged noncalcified prostate. OSSEOUS: No significant osseous lesions. No fractures. There is ankylosis of the sacroiliac joints. IMPRESSION: 1. No evidence of acute trauma sequelae in the abdomen and pelvis, realizing the limitations of a non infused study. 2. Multiple calcifications are noted in the pancreas consistent with chronic pancreatitis. Pancreati c duct is not dilated and there are no obvious focal pancreatic masses. 3. Sigmoid diverticulosis. No obvious acute diverticulitis. 4. there is ankylosis of the sacroiliac joints. RADIATION DOSE DELIVERED: 1073.07 mGy.cm Total DLP DATA REPOSITORY: All CT scans at this facility are submitted to the National Radiology Data Registry (NRDR) Dose Index Registry (DIR) with the [employer] ([employer]). RADIATION OPTIMIZATION: All CT scans at this facility use at least one of these dose optimization te chniques: automated exposure control; mA and/or kV adjustment per patient size (includes targeted exa ms where dose is matched to clinical indication); or iterative reconstruction.
--- NOTE | 2023-03-24 07:19 | DI.CT_ITS ---
Exam(s) CT LUMBAR SPINE RECONS EXAM: CT LUMBAR SPINE RECONS CLINICAL HISTORY: right lower back pain after fall 10 days ago. TECHNIQUE: Imaging Protocol: Axial computed tomography images with coronal and sagittal reformatted images were created and reviewed COMPARISON: CT CT ABDOMEN PELVIS WO from 03/24/2023 FINDINGS: Bones: There is age-related osteopenia. There are no fractures, listhesis, nor pars defects. There a re no lytic osseous lesions evident.Is ankylosis of the sacroiliac joints evident. All disc spaces e xhibit normal height. Annular bulging at L4-5 level noted. PARASPINAL SOFT TISSUES: Visualized paraspinal tissues appear unremarkable. No paraspinal hematoma evident. IMPRESSION: 1. No fractures evident. RADIATION DOSE DELIVERED: Total DLP DATA REPOSITORY: All CT scans at this facility are submitted to the National Radiology Data Registry (NRDR) Dose Index Registry (DIR) with the [employer] ([employer]). RADIATION OPTIMIZATION: All CT scans at this facility use at least one of these dose optimization te chniques: automated exposure control; mA and/or kV adjustment per patient size (includes targeted exa ms where dose is matched to clinical indication); or iterative reconstruction.
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
[2023-03-24] MEDS: HYDROcodone 5/Acetaminophen 325 TAB PO (07:26)
[2023-03-24] MEDS: Lidocaine 5% Patch 1 PATCH TP (07:27)
--- NOTE | 2023-03-24 09:25 | ED.PROG_ITS ---
Date of service: 03/24/23 Time of Service: 08:00 Medical Decision Making 87-year-old male presents for evaluation of back discomfort. Assumed care of patient awaiting for CT of abdomen pelvis and reassessment. CT of abdomen pelvis negative for any acute findings. He does have some ankylosis. I discussed results with patient and . They are reassured by these findings. Patient states that he is feeling better. We will try an ambulatory trial. Patient able to ambulate without difficulty. Will be sent home with Lidoderm patch. To continue taking Tylenol as needed. He will be given small amount of narcotic. He is instructed to take stool softeners when taking narcotic. Sign Out Sign Out Data: Sign Out Comment: Low back pain after fall [address] scan of the lumbar spine and abdomen Last updated by Praveen Garnica DO at 03/24/23 08:12 Discharge Plan Disposition Patient Disposition: Home Condition: Improving Discharge Details Clinical Impression: Low back pain Primary Care Provider: Yony Castillo ED Provider: Gracie Willard Foxworth Meds and New Rx's Prescriptions: New lidocaine [Lidoderm] 5 % adhesive patch,medicated 1 patch topical DAILY Qty: 15 0RF Rx Instructions: leave on most painful area for up to 12 hrs oxycodone-acetaminophen [Percocet] 5-325 mg tablet 1 tab PO Q8H PRNQty: 7 0RF No Action acetaminophen [Tylenol] 325 mg tablet 325 mg PO HS PRN rosuvastatin 40 mg tablet 40 mg PO DAILY mirtazapine 7.5 mg tablet 7.5 mg PO QHS Qty: 30 11RF aspirin [Aspir-81] 81 MG tablet,delayed release (DR/EC) 81 mg PO DAILY multivitamin 1 EACH capsule 1 tab PO DAILY Discharge Instructions Instructions: Low Back Strain (ED) Additional Instructions: Take Tylenol for pain. Use Lidoderm patch. Use Percocet for severe pain. If you are taking Percocet do not drive. Recommend starting stool softeners if taking Percocet. Referrals: Yony Castillo MD [Primary Care Provider] - 3 days Discharge Data Discharge Physician: Gracie Willard
--- NOTE | 2023-03-24 10:06 | NUR.NOTE ---
Nursing Note: Pt ambulated to the bathroom and to get a drink of water. When asked if doing alright he states, I guess so!
== END 2023-03-24 10:42 | disposition home or self-care (01) ==
PROVIDERS: Emergency Provider Emergency Medicine Emergency Medical Services; PCP Family Medicine
DX: M54.50 Low back pain, unspecified (principal)
CPT/HCPCS: 99283; 74176; 99284

== ENCOUNTER → 2023-04-12 10:12 | Outpatient (BNVA) | payer MEDICARE, SELFPAY | PROVIDERS: PCP Family Medicine; Visit Provider Nurse Practitioner Gerontology | DX: R35.0 Frequency of micturition (principal); N40.1 Benign prostatic hyperplasia with lower urinary tract symptoms; N13.8 Other obstructive and reflux uropathy | CPT/HCPCS: 51798; 99213 ==

== ENCOUNTER → 2023-06-02 03:38 | Outpatient (CLI) | payer MEDICARE, SELFPAY ==
--- NOTE | 2023-06-02 | DI.US_ITS ---
Exam(s) US THYROID EXAM: US THYROIDi CLINICAL HISTORY: THYROID NODULE E04.1 GOITER E04.2. TECHNIQUE: Ultrasound thyroid performed using standard protocol. COMPARISON: US US THYROID from 12/02/[address] HEAD CERVICAL SPINE WO from 03/15/[address] THORACIC SPINE RECONS from 03/15/2023 FINDINGS: Findings on this thyroid ultrasound examination are unchanged from the prior ultrasound examination o f 12/02/2022. The right lobe is again noted to be larger than the left and the size and number of nod ules in the right lobe is again noted be more so than on the left side. None of the left no nodules m easure greater than 1 cm. Previously described 3 dominant nodules in the right lobe are unchanged in size and configuration and exhibit identical TiRads classification to the prior study of November 2022, all falling within criteri a for requiring ultrasound-guided FNA. There is no significant lymphadenopathy. RIGHT THYROID LOBE: Measures cm AP x cm wide x cm craniocaudal Nodule #1 Size: Measures cm Composition: Spongiform- 0 points Echogenicity: Hyperechoic or isoechoic- 1 point Shape: Wider than taller-0 points Margin: Smooth- 0 points Echogenic Foci: None or large comet-tail artifact- 0 points Total Points for this nodule: ACR Ti-Rads Category: TR Nodule #2 Size: Measures cm Composition: Mixed cystic-solid- 1 point Echogenicity: Hypoechoic- 2 points Shape: Wider than taller- 0 points Margin: Lobulated or irregular- 2 points Echogenic Foci: Macrocalcifications- 1 point Total points for this nodule: ACR Ti-Rads Category: TR Nodule #3 Size: Measures cm Composition: Solid or almost completely solid- 2 points Echogenicity: Very hypoechoic- 3 points Shape: Wider than taller- 0 points Margin: Extra-thyroidal extension- 3 points Echogenic Foci: Peripheral (rim) calcifications- 2 points Total points for this nodule: ACR Ti-Rads Category: ISTHMUS: Normal thickness. There are no nodules in the isthmus. LEFT THYROID LOBE: Measures cm AP x wide x cm craniocaudal Nodule #1 Size: Measures cm Composition: - points Echogenicity: - points Shape: - points Margin: - points Echogenic Foci: - points Total points for this nodule: ACR Ti-Rads Category: Nodule #2 Size: Measures cm Composition: Echogenicity: Shape: Margin: Echogenic Foci: Total Points for this nodule: ACR Ti-Rads Category: Nodule #3 Size: Measures cm Composition: Echogenicity: Shape: Margin: Echogenic Foci: Total points for this nodule: ACR Ti-Rads Category: LYMPH NODES: There is no significant adenopathy. IMPRESSION: 1. Three right lobe solid nodule again noted which exhibited minimal if any significant change when c ompared to the prior ultrasound examination of November 2022. 2. Small sub cm benign-appearing nodules in the opposite-left pole. 3. There is no significant lymphadenopathy. DATA REPOSITORY:
== END ==
PROVIDERS: PCP Family Medicine; Visit Provider Physician Assistant
DX: E04.2 Nontoxic multinodular goiter (principal)
CPT/HCPCS: 76536

== ENCOUNTER → 2023-10-12 12:37 | Outpatient (BNVA) | payer MEDICARE, SELFPAY | PROVIDERS: PCP Family Medicine; Visit Provider Nurse Practitioner Gerontology | DX: N40.1 Benign prostatic hyperplasia with lower urinary tract symptoms (principal); R35.0 Frequency of micturition; N13.8 Other obstructive and reflux uropathy | CPT/HCPCS: 51798; 99213 ==

== ENCOUNTER 2024-04-09 16:37 | Inpatient (IN) | payer MEDICARE, SELFPAY ==
[2024-04-09] VITALS (54 sets, daily range): BP systolic 101–121; BP diastolic 67–79; PULSE 79–93; RESP 15–27; TEMP 36.9–37.8; O2SAT 90–95
--- NOTE | 2024-04-09 17:30 | DI.RAD_ITS ---
Exam(s) XR CHEST 1V IN DI DEPT EXAM: XR CHEST 1V IN DI DEPT CLINICAL HISTORY: Altered mental status. TECHNIQUE: 2D digital imaging was performed. COMPARISON: CT CT ABDOMEN PELVIS WO from 03/24/2023 FINDINGS: Single AP portable view. Cardiomegaly. Mediastinum age-appropriate. Pulmonary venous hypertension pattern but no airspace pulmonary edema and no obvious pleural effusion s. Some platelike atelectasis noted in left lung base IMPRESSION: Cardiomegaly. Pulmonary venous hypertension pattern. No obvious pleural effusions. DATA REPOSITORY: RADIATION DOSE DELIVERED:
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
--- NOTE | 2024-04-09 17:45 | RT.EKG_ITS ---
APPROVED REPORT Exam: Resting ECG Reason for Exam: Confusion Patient Location: E HR:77 bpm ECG Measurements Heart Rate 77 AXIS OR 254 P 27 QRSd 165 QRS 40 QT 398 T -13 QTc 451 Conclusion Sinus rhythm...normal P axis, V-rate 60- 99 Prolonged OR interval...OR >220, V-rate 50- 90 Right bundle branch block...QRSd>120, terminal axis(90,270) Inferior infarct, old...Q >35mS, II III aVF Normal sinus rhythm at a rate of 77. Right bundle branch block. First-degree AV block. QTc within normal limits. Compared to prior dated last year first-degree AV block is improved slightly. Right bundle branch block is persistent. Mild new T wave inversions right chest wall leads.
[2024-04-09 18:04] LABS: Abs Immature Grans 0.02 10^3/uL (0.0-0.06); Absolute Basophil Count 0.01 10^3/uL (0.0-0.2); Absolute Eosinophil Count 0.01 10^3/uL (0.0-0.7); Absolute Lymphocyte Count 0.25 10^3/uL (1.2-3.4); Absolute Monocyte Count 0.36 10^3/uL (0.1-0.8); Absolute Neutrophil Count 5.99 10^3/uL (1.2-6.7); Basophils % 0.2 %; Eosinophils % 0.2 %; HCT 46.4 % (40.0-50.0); HGB 15.7 g/dL (13.5-17.5); Immature Grans % 0.3 %; Lymphocytes % 3.8 %; MCH 33.3 pg (27.0-33.0); MCHC 33.8 % (32.0-36.0); MCV 99 fL (80-95); MPV 10.3 fL (8.0-11.0); Monocytes % 5.4 %; Neutrophils % 90.1 %; Platelet Count 141 10^3/uL (130-400); RBC 4.71 10^6/uL (4.36-5.78); RDW-SD 43.9 fL; WBC 6.64 10^3/uL (4.4-10.8)
[2024-04-09 18:27] LABS: ALT 29 U/L (16-63); AST 28 U/L (15-37); Albumin 3.9 g/dL (3.4-5.0); Alkaline Phosphatase 72 U/L (46-116); BUN 21 mg/dL (7-18); Bilirubin, Total 1.42 mg/dL (0.2-1.0); CREATININE 1.2 mg/dL (0.70-1.30); Calcium 9.3 mg/dL (8.5-10.1); Chloride 104 mmol/L (98-107); Creatine Kinase 148 U/L (39-308); Estimated GFR 58.17 (mL/min/1.73m2); Glucose 132 mg/dL (74-106); Magnesium 2.1 mg/dL (1.8-2.4); Potassium 4.3 mmol/L (3.5-5.1); Sodium 139 mmol/L (136-145); TSH (W/Ref FT4) 0.65 uIU/mL (0.36-3.74); Total Protein 7.3 g/dL (6.4-8.2); Troponin I < 50 ng/L (< or =60)
--- NOTE | 2024-04-09 18:35 | DI.CT_ITS ---
Exam(s) CT HEAD WO EXAM: CT HEAD WO CLINICAL HISTORY: Confusion. TECHNIQUE: Imaging Protocol: Axial computed tomography images with coronal and sagittal reformatted images were created and reviewed COMPARISON: CT CT HEAD CERVICAL SPINE WO from 03/15/2023 CR XR CHEST 1V IN DI DEPT from 04/09/2024 FINDINGS: There are no skull fractures. There is no fluid in the visualized paranasal sinuses. There is artifact over both sides of the posterior fossa. Again noted is evidence prior infarctions in both cerebellar hemispheres, again larger on the left. No change at this level. There is no evidence of intracranial hemorrhage, mass effect, or shift of midline structures. There are no extra-axial fluid collections. The ventricles are not enlarged or shifted and there is no blo od within the ventricular system nor within the basal cisterns. IMPRESSION: No acute intracranial findings on this noninfused CT scan of the brain. Evidence of prior infarcts in both cerebellar hemispheres again noted, left again noted to be larger than right. Called by myself ER physician 04/09/2024 at 6:52 p.m. RADIATION DOSE DELIVERED: Total DLP DATA REPOSITORY: All CT scans at this facility are submitted to the National Radiology Data Registry (NRDR) Dose Index Registry (DIR) with the [employer] ([employer]). RADIATION OPTIMIZATION: All CT scans at this facility use at least one of these dose optimization te chniques: automated exposure control; mA and/or kV adjustment per patient size (includes targeted exa ms where dose is matched to clinical indication); or iterative reconstruction.
[2024-04-09 18:39] LABS: ETHANOL BLOOD < 3.0 mg/dL (<10)
[2024-04-09 18:40] LABS: Bilirubin Negative (Negative); Blood Negative (Negative); Clarity Clear (Clear); Glucose Negative (Negative); Ketones Negative (Negative); Leukocyte Esterase Negative (Negative); Nitrite Negative (Negative); Urobilinogen 0.2 mg/dL (Up to 0.2)
[2024-04-09 18:55] LABS: Acetaminophen < 2 ug/mL (10-30); Salicylate < 2.8 mg/dL (<2.8)
[2024-04-09 20:26] LABS: Ammonia 15 umol/L (11-32)
--- NOTE | 2024-04-09 20:30 | NUR.NOTE ---
Nursing Note: this check writer and ROBOTICS MECHANIC assisted pt to stand at bedside to use urinal. He attempted to urinate while laying in bed however only voided a small amount (less than 100mL); while standing he partially urinated on the floor and urinated 100mL into urinal. Pt appeared weak but was able to stand independently once upright. Assisted back to bed.
--- NOTE | 2024-04-09 21:39 | NUR.NOTE ---
Nursing Note: this keno writer and BUGGY LOADER assisted pt to stand at side of bed and urinate with urinal. 150mL of straw colored urine voided. Assisted back to bed with 2 assist.
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
[2024-04-09 22:27] LABS: Vitamin B12 612 pg/mL (193-986)
[2024-04-09] MEDS: REMDESIVIR 100 MG in Normal Saline 250 ML 250 MG IVPB (23:08)
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
[2024-04-10] VITALS (7 sets, daily range): BP systolic 109–139; BP diastolic 65–78; PULSE 54–79; RESP 15–21; TEMP 36.2–37.8; O2SAT 93–96
[2024-04-10] MEDS: Enoxaparin 40 MG/0.4 ML SYR SC (00:30)
[2024-04-10] MEDS: Rosuvastatin 20 MG TAB 40 MG PO ×2 (00:30→19:45)
[2024-04-10] MEDS: Dexamethasone 4 MG/ML VIAL 6 MG IVP (01:21)
[2024-04-10] MEDS: Normal Saline Flush 10 ML SYR IVP ×3 (01:21→19:50)
--- NOTE | 2024-04-10 06:30 | DI.US_ITS ---
Exam(s) US CAROTID EXAM: US CAROTID CLINICAL HISTORY: Previous cerebellar CVA now with encephalopathy. TECHNIQUE: Ultrasound carotids performed using grayscale, color-flow, and spectral Doppler imaging. COMPARISON: No exams were available for comparison FINDINGS: RIGHT CAROTID ARTERY: Plaque: No significant calcific plaque. Velocity elevation: None. LEFT CAROTID ARTERY: Plaque: No significant calcific plaque. Velocity elevation: None. VERTEBRAL ARTERIES: Antegrade flow. Measurements: R Bulb: 67.7cm/s PS / 14cm/s ED R CCA: 76.2cm/s PS / 15.4cm/s ED R ECA: 119.7cm/s PS / 19.3cm/s ED R ICA Prox: 67.4cm/s PS / 14.4cm/s ED R ICA Mid: 80.1cm/s PS / 14.4cm/s ED R ICA Distal: 49.1cm/s PS /12.6cm/s ED R Vert: 50.1cm/s PS / 13cm/s ED R SVR: 1.1 R DVR: 0.9 L Bulb: 66.5cm/s PS / 14.2cm/s ED L CCA: PS / 18.1cm/s ED L ECA: 96.6cm/s PS / 16.4cm/s ED L ICA Prox: 47.3cm/s PS / 16.7cm/s ED L ICA Mid: 63.8cm/s PS / 16.8cm/s ED L ICA Distal: 68.7cm/s PS / 20.7cm/s ED L Vert: 35.7cm/s PS / 8.2cm/s ED L SVR: 0.9 L DVR: 1.1 There again seen right thyroid nodules. The patient has had multiple thyroid ultrasounds following t he nodules. Follow-up as clinically appropriate. IMPRESSION: No evidence for hemodynamically significant carotid stenosis. Criteria for Carotid Stenosis: Normal: ICA PSV <125 cm/s no plaque or intimal thickening is visible. <50% stenosis: ICA PSV <125 cm/s and plaque or intimal thickening is visible. 50-69% stenosis: ICA PSV is 125-250 cm/s and plaque is visible. >70% stenosis to near occlusion: ICA PSV >250 cm/s with visible plaque and luminal narrowing. DATA REPOSITORY:
[2024-04-10 07:23] LABS: HCT 42.8 % (40.0-50.0); HGB 15.1 g/dL (13.5-17.5); MCH 33.9 pg (27.0-33.0); MCHC 35.3 % (32.0-36.0); MCV 96 fL (80-95); MPV 10.3 fL (8.0-11.0); Platelet Count 127 10^3/uL (130-400); RBC 4.45 10^6/uL (4.36-5.78); RDW 12.3 % (11.8-14.1); RDW-SD 43.8 fL; WBC 3.87 10^3/uL (4.4-10.8)
[2024-04-10 07:51] LABS: ALT 27 U/L (16-63); AST 20 U/L (15-37); Albumin 3.3 g/dL (3.4-5.0); Alkaline Phosphatase 64 U/L (46-116); BUN 16 mg/dL (7-18); Bilirubin, Total 1.05 mg/dL (0.2-1.0); CREATININE 1.1 mg/dL (0.70-1.30); Calcium 8.5 mg/dL (8.5-10.1); Chloride 104 mmol/L (98-107); Estimated GFR 64.57 (mL/min/1.73m2); Glucose 178 mg/dL (74-106); Potassium 3.9 mmol/L (3.5-5.1); Sodium 140 mmol/L (136-145); Total Protein 6.5 g/dL (6.4-8.2)
--- NOTE | 2024-04-10 08:00 | DI.MRI_ITS ---
Exam(s) MR BRAIN WO EXAM: MR BRAIN WO CLINICAL HISTORY: COVID encephalopathy with previous cerebellar CVA TECHNIQUE: Multiplanar multisequence MRI of the brain was performed. COMPARISON: CT CT HEAD WO from 04/09/2024 FINDINGS: VENTRICLES AND EXTRA AXIAL SPACES: Normal in size and morphology for the patient's age. MIDLINE SHIFT: None. CEREBRAL PARENCHYMA: No focus of restricted diffusion to suggest acute infarct. No space-occupying le isatu identified. Old bilateral cerebellar infarcts. There are few scattered foci of hyperintense sig nal seen in the white matter on the FLAIR and T2 weighted images most consistent with chronic microva scular ischemic disease. HEMORRHAGE: None. BRAINSTEM/CEREBELLUM: Normal. CALVARIUM: Normal. VISUALIZED PARANASAL SINUSES/MASTOIDS:Clear. RUBY OF [place]: Normal flow void. PITUITARY GLAND: Unremarkable. OTHER FINDINGS: None. IMPRESSION: 1. Age-appropriate cerebral atrophy and chronic microvascular ischemic disease. 2. Old bilateral cerebellar infarct. 3. No evidence of an acute infarct. DATA REPOSITORY:
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
[2024-04-10] MEDS: Aspirin E.C. 81 MG TABEC PO (09:04)
[2024-04-10] MEDS: Multivitamin TAB 1 TAB PO (09:04)
--- NOTE | 2024-04-10 13:00 | DI.US_ITS ---
APPROVED REPORT EXAM: Comprehensive 2D, Doppler, and color-flow Echocardiogram Patient Location: In-Patient Room/Bed: [address] Performer: Mami Smiley RDCS (AE) Indications: Previous CVA now with encephalopathy Echo Enhancing Agent Indication: Rule out Shunt Agent(s) / Amount(s) Used: Agitated Saline 10.0 cc Comments: Contrast study was performed with 1 Positive contrast study for right to left shunt flow.IV injections of 10ccs of agitated normal saline at rest. Other Information Study Quality: Fair. Technically limited study due to body habitus, inability to position patient exa m done supine. Conclusion Technically difficult study Left ventricular systolic function appears grossly normal, normal wall motion Normal right ventricular size and function Both atria are normal in size There is probably intracardiac shunting of agitated saline though this is not impressive No valvular disease is identified within the limits of the study Wall motion Left Ventricle Technically limited parasternal imaging. Measurements not performed, vertical presentation. The overa ll left ventricular systolic function appears normal. Regional wall motion is grossly normal. There i s no ventricular septal defect visualized. LVEF is 54%. Right Ventricle Right ventricle is grossly normal in size. Right ventricular systolic function is grossly normal. Atria The left atrium size is normal. The right atrium size is normal. Saline bubble contrast intravenous i njection demonstrates PFO. Aortic Valve The aortic valve is normal in structure. Aortic valve is trileaflet. There is no aortic valvular sten osis. No aortic regurgitation is present. Mitral Valve The mitral valve is normal in structure. No evidence of mitral valve stenosis. Trace mitral regurgita tion. Tricuspid Valve The tricuspid valve is normal in structure. There is no tricuspid valve stenosis. Trace tricuspid reg urgitation. Pulmonic Valve The pulmonary valve is normal in structure. There is no pulmonic valvular stenosis. There is no pulmo vesta valvular regurgitation. Great Vessels The aortic root is normal in size. The ascending aorta is mildly dilated. Aortic arch is normal in ca liber. The IVC was not clearly visualized. Pericardium Technically limited subcostal imaging. 2D Dimensions Ao Root d 3.72 cm M: 3.1 - 3.7 Ao Asc Diam d 3.83 cm M: 2.6 - 3.4 M-Mode TAPSE 2.26 cm (M/F) >1.7 Auto EF LV EDV A4C 113.7 mL LV EDV A2C 130.8 mL LV EDV BP 121.5 mL LV ESV A4C 51.5 mL LV ESV A2C 62.0 mL LV ESV BP 55.6 mL LVEF(%) A4C 54.7 % LVEF(%) A2C 52.6 % LVEF(%) BP 54.2 % LV SV A4C 62.1 ml LV SV A2C 68.9 ml LV SV BP 65.9 ml LV CO A4C 3.7 L/min LV CO A2C 4.1 L/min LV CO BP 3.9 L/min HR A4C 60.10 BPM HR A2C 59.10 BPM LV EDV Index (BP) LA Volume LA Length A4C 5.4 cm LA Length A2C LA Area A4C s 14.96 cm2 LA Area A2C s LA Vol A4C A-L 34.88 mL LA Vol A2C A-L LA Vol Biplane A-L LA Vol A4C MOD 33.7 mL LA Vol A2C MOD LA Vol BP MOD RA Volume RA Area A4C 16.7 cm2 RA ESV A4C (A-L) 41.5mL RA Vol/BSA A4C A-L RA Length A4C 5.7 cm RA ESV A4C (MOD) 40.4mL LV Diastology MV E' medial 0.071 (>0.07 m/s) MV E Vmax 0.71 (0.4-1.3 m/s) MV E/E' MED 9.90 (<14) MV A Vmax 0.95 (0.4-1.3 m/s) E/A Ratio 0.7 Aortic Valve AoV Vmax 1.31 m/s LVOT Vmax 0.99 m/s AoV Peak Grad 6.9 mmHg LVOT Peak Grad 3.9 mmHg AoV Area (Vmax) 2.47 cm2 LVOT VTI 0.213 m AoV VTI 0.320 m LVOT Mean Grad 2.1 mmHg AoV Mean Leo. 0.91 m/s LVOT SV 69.77 mL AoV Mean Grad 3.7 mmHg LVOT Diam s 2.00 cm AoV Area (VTI) 2.18 cm2 AV Regurg Peak Gr. 6.86 mmHg Velocity Ratio 0.76 Mitral Valve MV DT 320 (160-240 msec) MV Vmax TIPS 0.83 m/s MV Mean Grad 1.0 (<2mmHg) MV VTI 0.303 m Pulmonary Valve PV Vmax 0.96 (0.5-1.5 m/s) RVOT Vmax 0.69 m/s PV Peak Grad 3.7 mmHg RVOT Peak Gr. 1.9 mmHg PV Mean Leo 0.69 m/s RVOT VTI 0.134 m PV Mean Grad 2.2 mmHg RVOT Mean Gr. 1.0 mmHg Tricuspid Valve TV S' 0.11 m/s TR Vmax 2.25 m/s TR Peak Grad 20.1 mmHg
--- NOTE | 2024-04-10 13:47 | OT.INNT ---
Occupational Therapy Notes 04/10/24 OT consult received and pts chart was reviewed. Pt is out of the room for testing this afternoon. OT will attempt to resume consult tomorrow. Viola Garcia OTR/L
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
[2024-04-10] MEDS: Dexamethasone 10 MG/ML VIAL 6 MG IV (19:45)
--- NOTE | 2024-04-10 21:32 | PGE_ITS ---
Date of Service Date of service: 04/10/24 Time of Service: 17:40 Assessment and Plan Assessment and plan (1) COVID-19 virus infection: Start date: 04/09/24 Status: Acute Assessment and plan: This is an 88-year-old gentleman admitted with COVID-19 with associated encephalopathy and some hypoxia. He was initiated on remdesivir with dexamethasone, continue. He will continue on precautions because of COVID infection. See below (2) Acute encephalopathy: Start date: 04/09/24 Status: Acute Assessment and plan: Secondary to acute COVID infection with patient to be treated with supportive care. (3) Cerebrovascular accident (CVA) due to occlusion of posterior cerebral artery: Status: Acute Assessment and plan: Patient does have previous CVA, some concern for TIA given dysarthria, but I think this is more c/w encephalopathy that acute CVA/TIA MRI of the brain and carotid ultrasound along with echocardiogram reassuring. PT and OT ordered. I don't think he needs swallow evaluation as I watched him eat without difficulty or aspiration. Qualifiers: Laterality of affected vessel: bilateral Qualified Code(s): I63.533 - Cerebral infarction due to unspecified occlusion or stenosis of bilateral posterior cerebral arteries Subjective Subjective Patient reports: feels better, tolerating a regular diet and voiding w/o difficulty; denies nausea Interval history since last seen: Feeling a little more like himself, thinks he is doing better. Not short of breath, occiational cough. Voice sounds normal now. Exam Narrative Exam Narrative: General: Alert and oriented now. Speaks without dyspnea, intelligible. Lungs: CTAB, slight increase in effot. Heart: Regular rate and rhythm with no murmurs or gallops appreciated. Abdomen: Soft to palpation and nontender with no guarding or rebound. Extremity: 1+ pitting edema ankles with chronic skin changes without skin breakdown revealing loss of hair and tanned skin with some pigmentation sparsely. No cyanosis or clubbing. Fair capillary refill. Skin: Pale, warm and dry. Neuro: Cranial nerves II through XII grossly intact though hard of hearing. No tremor. No pronator drift. FNF symmetric, mildly slowed but intact. No focal motor deficit. Patient is speaking in short sentences without aphasia or dysarthris. Normal coordiantion, DTRs symmetric and 2+ bilaterally in LE, no Babinski. Psych: Flattened affect with normal mood. No abnormal thought processes Objective Last Vital Signs Temp 36.4 C L 04/10/24 20:06 Pulse 67 04/10/24 20:06 Resp 16 04/10/24 20:06 BP 117/67 04/10/24 20:06 Pulse Ox 94 04/10/24 20:06 Laboratory Results - last 24 hr 04/09/24 04/10/24 20:00 07:10 WBC 3.87 L RBC 4.45 Hgb 15.1 Hct 42.8 MCV 96 H MCH 33.9 H MCHC 35.3 RDW 12.3 Plt Count 127 L MPV 10.3 Sodium 140 Potassium 3.9 Chloride 104 Carbon Dioxide 28.0 Anion Gap 8.0 BUN 16 Creatinine 1.1 Est GFR (CKD-EPI 2020) 64.57 Glucose 178 H Calcium 8.5 Magnesium 2.0 Total Bilirubin 1.05 H AST 20 ALT 27 Alkaline Phosphatase 64 Total Protein 6.5 Albumin 3.3 L Vitamin B12 612 Time Spent with Patient Time Spent with Patient: 25-34 minutes Time was spent: preparing to see the patient(eg.review tests), obtaining and/or reviewing separately otained hiistory, ordering medications,tests, procedures, referring, communicating with other health plant health care technician, indepentently interpreting results and counseling the patient
[2024-04-10] MEDS: REMDESIVIR 100 MG in Normal Saline 250 ML 250 MG IVPB (23:14)
[2024-04-10] MEDS: Mirtazapine 15 MG TAB 7.5 MG PO (23:15)
[2024-04-11 03:35] VITALS: BP 131/74; PULSE 60; RESP 16; TEMP 36; O2SAT 94
[2024-04-11 06:57] VITALS: BP 134/78; PULSE 64; RESP 16; TEMP 36.4; O2SAT 94
[2024-04-11] MEDS: Multivitamin TAB 1 TAB PO (08:00)
[2024-04-11] MEDS: Aspirin E.C. 81 MG TABEC PO (08:00)
[2024-04-11] MEDS: Normal Saline Flush 10 ML SYR IVP (08:01)
[2024-04-11 08:02] VITALS: BP 145/79; PULSE 65; RESP 17; TEMP 36.6; O2SAT 97
--- NOTE | 2024-04-11 09:42 | PDOC.CMPRO ---
Date of service: 04/11/24 Time of Service: 09:42 SDOH(Care Management) Screening Will the Patient Participate in the Screening?: Declined to provide
[2024-04-11 12:31] VITALS: BP 106/66; PULSE 56; RESP 16; TEMP 36.6; O2SAT 95
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
--- NOTE | 2024-04-11 15:00 | PT.INTREAT ---
PT Notes Visit Reasons: Acute encephalopathy, COVID-19 infection Physical Therapy Treatment Note Date: 04/11/2024 Precautions: Fall. Activity as tolerated. AIR[place]OR[place] PRECAUTIONS FOR COVID-[address] Subjective: Looking forward to going home. Very motivated to participate in PT. Objective: General Observation: Seated on bedside recliner. Mental Status: Alert and oriented as to person, place, time, and purpose. Able to pay attention, focus, and respond appropriately. Pain: None reported Vital Signs: closely monitored by nursing staff Bed Mobility/Transfers: Minimal cueing provided for use of B hands as needed for support, movement sequence, AD management, and posture to reduce fall risk and minimize pain report Sit to stand supervision with FWW Stand to sit supervision with FWW Bed to reclining chair supervision with FWW Reclining chair to bed supervision with FWW Gait: Facilitated safe and correct level surface ambulation covering a distance of about 150 feet using using no assitived device with reciprocal step through gait pattern with stand by assist while inside room. No LOB. No SOB. Balance: Static Sitting: Normal Dynamic Sitting: Normal Static Standing: Good Dynamic Standing: Fair Assessment: Activity tolerance improved. No shortness of breath observed after ambulation activity. Oxygen supplementation discontinued as of yesterday. DISCHARGE RECOMMENDATIONS: [] Home with no services [] [X Patient will benefit from home health PT services in order to progress mobility level using least restrictive assistive ambulatory device, assess home safety, identify additional equipment needs, and establish a functional maintenance program that will increase ability of patient to remain at home.] Home with services. [] Home with outpatient PT [] [] SNF for continued rehabilitation [] [] Group Home Care [] [] SNF versus LTC based on ability to participate and progress [] TREATMENT CODE/TIME: 60862 x 20 minutes for 1 unit, 55838 x 14 minutes for 1 unit (9:02-9:36).
[2024-04-11 15:41] VITALS: BP 118/72; PULSE 56; RESP 16; TEMP 36.6; O2SAT 96
--- NOTE | 2024-04-11 15:52 | CMPROGNOTE_ITS ---
Date of service: 04/11/24 Time of Service: 15:52 Care Management Progress Note Progress Note Text Progress Note Text: CM has been unable to reach patient by phone again today and the hospital phones are currently charging. CM reviewed discharge planning with patients , sister and daughter Shana and relayed info to nursing. Sister Jamila will pick him up at approximately 7pm after is infusion is completed. CM is following Discharge Potential Discharge Needs: PCP F/U Appt Anticipated Barriers to Discharge: None Identified Patient/Family Education Needs: Review discharge instructions, discuss Ask Me Three Transportation: Private vehicle Plan: Discharge home via private vehicle with sister Jamila at approximately 7pm after his infusion in finished. [facility] PT/KEYSEATER OPERATOR services are ordered. Follow up with community providers and discharge plan as recommended. CM reviewed discharge planning collaboratively with Jamila and Kanika and via phone. CM also reviewed discharge plans with daughter Shana from [place]. SDOH(Care Management) Screening Will the Patient Participate in the Screening?: Declined to provide
--- NOTE | 2024-04-11 15:55 | CMDISCH_ITS ---
Date of service: 04/11/24 Time of Service: 15:56 LACE Index Scoring Tool Questions: Length of Stay (in days): 2 Was the patient admitted via the E.D.?: Yes Comorbidities: Cerebrovascular Disease E.D. Visits: 1 Answers: Total Score: 7 Risk of Readmission: Low Risk Care Management Discharge Plan Reason for Hospitalization: Acute encephlopathy Discharge Plan: Discharge home via private vehicle with sister Jamila at approximately 7pm after his infusion in finished. New [facility] PT/SCHOOL PHOTOGRAPH EDITOR services are ordered. Follow up with community providers and discharge plan as recommended. CM reviewed discharge planning collaboratively with Jamila and Kanika and via phone. CM also reviewed discharge plans with daughter Shana from [place]. Patient/Family Education Needs: Review discharge instructions, limitations, medications and plan to follow up with community providers. Discuss ask me three. Services Needed at Discharge: Home Health Care Services (New [facility] PT/SCHOOL PHOTOGRAPH EDITOR. Needs physical therapy and may benefit from terminal press operator planning support.) [facility] Health Related Social Needs: No Data to Display
--- NOTE | 2024-04-11 16:02 | PDOC.HHF2F_ITS ---
Home Health Referral Home Health Orders Clinical synopsis of why skilled professionals are needed: weakness associated with COVID 19 Medical diagnosis necessitation home health referral: covid-19, encephalopathy, peripheral neuropathy, muscle weakness Physical Therapist: Check all that apply Increase strength & endurance for safe mobility at home: Ordered To design/establish home maintenance program: Ordered Home safety evaluation and teaching/gait training including stair management (if applicable): Ordered [place] Attendant: Assist with intermodal truck driver care planning: Ordered Home Bound Status Requires the aid of supportive device (check all that apply): Walker Describe why leaving home would require a considerable and taxing effort: Requires frequent rest periods and Safety Concerns: describe (weakness, fall risk, current COVID 19) Encounter Date and Reason: I certify that a FTF encounter for this patient was performed on April 11, 2024 and that such encounter was related to the primary reason the patient requires home health services. The encounter was conducted in the following manner: * By me as the certifying physician, BUSINESS MANAGER [employer]IV[employer], [place] or * By an inpatient physician, BUSINESS MANAGER [employer] UNIVERSITY or [place] during an inpatient stay who communicated findings to me, Certification And Authentication I certify that I composed the above information based on my clinical judgment relating to this patient's medical condition and, if applicable, clinical findings communicated to me by the NPP or inpatient physician who performed the FTF encounter. Name of Provider that will be monitoring home health services: Yony Castillo
[2024-04-11] MEDS: REMDESIVIR 100 MG in Normal Saline 250 ML 250 MG IVPB (17:57)
== END 2024-04-11 19:09 | disposition home health service (06) | DRG 178 ==
LOC: ER 23:01 → MS 23:28
PROVIDERS: Admitting Provider Family Medicine; Emergency Provider Emergency Medicine; PCP Family Medicine; Visit Provider Family Medicine
DX: U07.1 COVID-19 (principal); G93.40 Encephalopathy, unspecified; N13.8 Other obstructive and reflux uropathy; E78.5 Hyperlipidemia, unspecified; G47.00 Insomnia, unspecified; G62.9 Polyneuropathy, unspecified; I45.10 Unspecified right bundle-branch block; F32.A Depression, unspecified; F41.9 Anxiety disorder, unspecified; M54.12 Radiculopathy, cervical region; M54.30 Sciatica, unspecified side; R53.1 Weakness; R09.02 Hypoxemia; Z86.73 Personal history of transient ischemic attack (TIA), and cerebral infarction without residual deficits; R26.9 Unspecified abnormalities of gait and mobility; E04.2 Nontoxic multinodular goiter; M75.101 Unspecified rotator cuff tear or rupture of right shoulder, not specified as traumatic; N40.1 Benign prostatic hyperplasia with lower urinary tract symptoms; R35.0 Frequency of micturition; G89.29 Other chronic pain
CPT/HCPCS: 00123; 36415; 51701; 80053; 82550; 85027; 93005; 93306; 96365; 97110; 97162; 97530; 99285; J1650; 70450; 70551; 71045; 80320; 80329; 81003; 82140; 82607; 83735; 84443; 84484; 85025; 93010; 93880; 99231; 99233; 99238; J0248; J1100

== ENCOUNTER → 2024-04-18 13:11 | Outpatient (BNVA) | payer MEDICARE, SELFPAY | PROVIDERS: PCP Family Medicine; Visit Provider Nurse Practitioner Gerontology | DX: N40.1 Benign prostatic hyperplasia with lower urinary tract symptoms (principal); R35.0 Frequency of micturition; R39.15 Urgency of urination; N13.8 Other obstructive and reflux uropathy | CPT/HCPCS: 51798; 99213 ==

== ENCOUNTER 2024-05-28 02:29 | Outpatient (CLI) | payer MEDICARE, SELFPAY ==
--- NOTE | 2024-05-28 07:45 | DI.US_ITS ---
Exam(s) US THYROID EXAM: US THYROID CLINICAL HISTORY: 1 Year Check,multinodular goiter,e04.2. TECHNIQUE: Ultrasound thyroid performed using standard protocol. COMPARISON: US US THYROID from 06/02/2023 FINDINGS: ISTHMUS: 4 mm RIGHT LOBE: Size: 6.9 x 4.0 x 4.4 cm Echogenicity: Normal. Vascularity: Normal. Nodules: Nodule 1. Lower pole measuring 3.8 x 2.4 x 4.3 cm, unchanged from prior. Solid, hypoechoic , wider than tall, smoothly marginated without echogenic foci. TR 4. Nodule 2 upper pole measuring 14 x 15 by 16 millimeters, not significantly changed given measurement error. Composition is solid, isoechoic, wider than tall lobulated margins with macrocalcifications a nd punctate microcalcifications. TR 5. Multiple other smaller nodules noted. LEFT LOBE: Size: 5.0 x 2.6 x 1.9 cm Echogenicity: Normal. Vascularity: Normal. Nodules: Several tiny nodules noted. OTHER FINDINGS: No adenopathy. IMPRESSION: Stable appearance of right-sided thyroid nodules. DATA REPOSITORY:
== END 2024-05-28 02:49 ==
LOC: DI 02:29
PROVIDERS: PCP Family Medicine; Visit Provider Physician Assistant
DX: E04.2 Nontoxic multinodular goiter (principal)
CPT/HCPCS: 76536

== ENCOUNTER 2024-07-30 02:25 | Outpatient (CLI) | payer MEDICARE, SELFPAY ==
--- NOTE | 2024-07-30 07:45 | DI.RAD_ITS ---
Exam(s) XR HIP LT COMPLETE AP PELVIS EXAM: XR HIP LT COMPLETE AP PELVIS CLINICAL HISTORY: left groin pain; diminished ROM,M25.552. TECHNIQUE: 2D digital imaging was performed. Two views COMPARISON: CT CT ABDOMEN PELVIS WO from 03/24/2023 CR XR CHEST 1V IN DI DEPT from 04/09/2024 FINDINGS: BONES: No acute fracture is present. No bony destructive lesion is seen. JOINTS: No dislocation present. Hip joint spaces are maintained. There is spurring from both aceta bula. No significant spurring at the femoral heads. There is bony bridging across the sacroiliac dean ints. Findings could indicate ankylosing spondylitis. SOFT TISSUE: Normal. IMPRESSION: Mild degenerative changes of the hips. 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 DATA REPOSITORY: RADIATION DOSE DELIVERED:
== END 2024-07-30 02:45 ==
LOC: DI 02:26
PROVIDERS: PCP Family Medicine; Visit Provider Family Medicine
DX: M16.0 Bilateral primary osteoarthritis of hip (principal)
CPT/HCPCS: 73502

== ENCOUNTER → 2024-11-29 14:31 | Outpatient (BNVA) | payer MEDICARE, SELFPAY | PROVIDERS: PCP Family Medicine; Visit Provider Nurse Practitioner Gerontology | DX: R35.0 Frequency of micturition (principal); N40.1 Benign prostatic hyperplasia with lower urinary tract symptoms; N13.8 Other obstructive and reflux uropathy | CPT/HCPCS: 51798; 99213 ==